=== PATIENT | female | born 1945 | race Caucasian/White ===

== ENCOUNTER → 2016-12-06 | Outpatient (CLI) | payer OTHER ==
[~2016-12-06] MED LIST: ASPI-435 PO; CHOL100010 PO; DABI1CAP PO; LISI20TA3 PO; LIVALO PO; METF1000 PO; METO50TA16 PO; VITACAP26 PO
[2016-12-06 10:42] LABS: ALB/GLOB RATIO 1.1 (0.9-2); ALT/SGPT 20 U/L (12-78); AST/SGOT 13 U/L (15-37); BLOOD UREA NITROGEN 17 mg/dl (7-18); CARBON DIOXIDE 30 mmol/L (21-32); CHLORIDE 109 mmol/L (98-107); GLUCOSE 120 mg/dl (70-99); POTASSIUM 4.4 mmol/L (3.5-5.1); SODIUM 147 mmol/L (136-145); TRIGLYCERIDES 203 mg/dl (0-150); VERY LOW DENSITY LIPOPROT CALC 41 mg/dl
[2016-12-06 10:43] LABS: ALKALINE PHOSPHATASE 50 U/L (45-117); CHOLESTEROL 166 mg/dl (0-200); CHOLESTEROL/HDL RATIO 3.6; HDL CHOLESTEROL 46 mg/dl; LDL CHOLESTEROL CALCULATED 79 mg/dl
== END | disposition home or self-care (01) ==
LOC: C.LAB 09:16
PROVIDERS: ATTEND Family Medicine
DX: E11.9 Type 2 diabetes mellitus without complications (principal)

== ENCOUNTER → 2016-12-20 | Outpatient (CLI) | payer OTHER ==
--- NOTE | 2016-12-20 12:47 | MAMMOGRAPHY REPORT ---
BILATERAL DIGITAL SCREENING MAMMOGRAM WITH CAD: 12/20/2016 CLINICAL HISTORY: Routine screening. Patient has no complaints. TECHNIQUE: Bilateral CC and MLO views were obtained with repeat MLO views performed with more anteri or compression into include all tissue. Current study was also evaluated with a Computer Aided Dete ction (CAD) system. COMPARISON: Comparison is made to exams dated: 03/19/2015 mammogram, 03/11/2013 mammogram, 03/08/2012 m ammogram, 03/04/2011 mammogram, 03/05/2010 ultrasound - [facility], and 02/27/2009. BREAST COMPOSITION: The tissue of both breasts is almost entirely fatty. FINDINGS: There is a stable circumscribed 10 mm mass in the upper outer quadrant of the right breast . 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 There are scattered benign rim calcifications in the left breast. A stable metallic biopsy ma rker in the left breast and a grouping of punctate microcalcifications in the left upper outer quadr ant that appears similar dating back to at least 2009. No new suspicious mass, architectural distor tion or cluster of microcalcifications is seen. IMPRESSION: ACR BI-RADS CATEGORY 1: NEGATIVE There is no mammographic evidence of malignancy. A 1 year screening mammogram is recommended. The p atient will receive written notification of the results. Approximately 10% of breast cancers are not detected with mammography. A negative mammographic repor t should not delay biopsy if a clinically suggestive mass is present. Sendy Roberson M.D. ay/:12/20/2016 12:12:10 Acid Changer: Claudette SERVIN,R, M, [facility] letter sent: Normal 1/2 BI-RADS Code: ACR BI-RADS Category 1: Negative
== END | disposition home or self-care (01) ==
LOC: C.MAMM 11:01
PROVIDERS: ATTEND Family Medicine
DX: Z12.31 Encounter for screening mammogram for malignant neoplasm of breast (principal)

== ENCOUNTER → 2017-12-21 | Outpatient (CLI) | payer OTHER ==
--- NOTE | 2017-12-21 15:08 | MAMMOGRAPHY REPORT ---
BILATERAL DIGITAL SCREENING MAMMOGRAM TOMOSYNTHESIS WITH CAD: 12/21/2017 CLINICAL HISTORY: Routine screening. Patient has no complaints. TECHNIQUE: Breast tomosynthesis in addition to standard 2D mammography was performed. Current study was also evaluated with a Computer Aided Detection (CAD) system. COMPARISON: Comparison is made to exams dated: 12/20/2016 mammogram, 03/19/2015 mammogram, 03/18/2014 m ammogram, 03/11/2013 mammogram, 03/08/2012 mammogram, and 03/05/2010 ultrasound [facility]. BREAST COMPOSITION: The tissue of both breasts is almost entirely fatty. FINDINGS: No suspicious masses, calcifications, or areas of architectural distortion are noted in ei ther breast. There has been no significant interval change compared to prior exams. Bilateral benign appearing calcifications are not significantly changed. Bilateral nodularity is also stable. A bio psy clip is again noted within the left breast. IMPRESSION: ACR BI-RADS CATEGORY 2: BENIGN There is no mammographic evidence of malignancy. A 1 year screening mammogram is recommended. The pa tient will receive written notification of the results. Approximately 10% of breast cancers are not detected with mammography. A negative mammographic report should not delay biopsy if a clinically suggestive mass is present. Leonie White M.D. /:12/21/2017 14:03:51 Ekg Technician: Lori SERVIN(Lona)(Adonis), [facility] letter sent: Normal 1/2 BI-RADS Code: ACR BI-RADS Category 2: Benign
== END | disposition home or self-care (01) ==
LOC: C.MAMM 11:21
PROVIDERS: ATTEND Family Medicine
DX: Z12.31 Encounter for screening mammogram for malignant neoplasm of breast (principal)

== ENCOUNTER 2021-01-16 21:04 | Inpatient (IN) ==
[2021-01-16 21:44] LABS: Basophils # (auto) 0.01 K/uL (0-0.2); Basophils % (auto) 0.1 %; Eosinophils # (auto) 0.13 K/uL (0-0.5); Eosinophils % (auto) 1.9 %; Hematocrit (blood only) 43.2 % (37-47); Hemoglobin 14.2 g/dL (12.0-16.0); Immature Granulocytes # (auto) 0.02 K/uL (0.00-0.02); Immature Granulocytes % (auto) 0.3 %; Lymphocytes # (auto) 1.86 K/uL (1.2-3.4); Lymphocytes % (auto) 27.1 %; Mean Corpuscular Hemoglobin 28.9 pg (25-34); Mean Corpuscular Hgb Conc 32.9 g/dL (32-36); Mean Platelet Volume 10.1 fL (7.4-10.4); Monocytes # (auto) 0.75 K/uL (0.11-0.59); Monocytes % (auto) 10.9 %; Neutrophils # (auto) 4.09 K/uL (1.4-6.5); Neutrophils % (auto) 59.7 %; Platelet Count 176 K/uL (130-400); RDW Coefficient of Variation 14.4 % (11.5-14.5); RDW Standard Deviation 46.3 fL (36.4-46.3); Red Blood Count 4.91 M/uL (4.2-5.4); White Blood Count 6.86 K/uL (4.8-10.8)
[2021-01-16] MEDS ORDERED: OPTIRAY 350 500ml IV ONE (21:49)
[2021-01-16 21:59] LABS: Partial Thromboplastin Ratio 0.8; Partial Thromboplastin Time 22.3 Seconds (21.0-31.0); Prothrombin Time 10.4 Seconds (9.0-12.0)
[2021-01-16 22:01] LABS: Alanine Aminotransferase 23 U/L (12-78); Albumin Level 3.6 gm/dl (3.4-5.0); Aspartate Aminotransferase 13 U/L (15-37); BUN Creatinine Ratio 10.3 (10-20); Blood Urea Nitrogen 11 mg/dl (7-18); Calcium 9.6 mg/dl (8.5-10.1); Carbon Dioxide 29 mmol/L (21-32); Chloride 111 mmol/L (98-107); Creatinine Clr Calc Pharmacy 44.2 ml/min; Est GFR (African American) 55.9; Est GFR (Non-African American) 48.2; Glucose 136 mg/dl (70-99); Magnesium 2.1 mg/dl (1.8-2.4); Sodium 144 mmol/L (136-145)
[2021-01-16 22:05] LABS: Alkaline Phosphatase 54 U/L (45-117); Bilirubin,Total 0.6 mg/dl (0.2-1); Globulin 3.6 gm/dl (2.5-4.0); Total Protein 7.2 gm/dl (6.4-8.2); Troponin I < 0.015 ng/ml (0-0.045)
[2021-01-16] MEDS ORDERED: POTASSIUM CHLORIDE / WTR 10 MEQ/100 ML PLCT IV ONE (22:34)
[2021-01-16 22:40] LABS: Influenza A virus by PCR Negative (Neg); Influenza B virus by PCR Negative (Neg); RSV by PCR Negative (Neg); SARS CoV2 RNA(COVID-19) InHosp NEGATIVE (Negative)
[2021-01-16 23:29] LABS: Appearance Urine Clear (Clear); Bilirubin Urine Negative (Negative); Blood Urine Negative (Negative); Color Urine Yellow; Glucose Urine UA Negative (Negative); Ketones Urine Negative (Negative); Leukocyte Esterase Urine Negative (Negative); Nitrite Urine Negative (Negative); Protein Urine Negative (Negative); Specific Gravity Urine 1.037 (1.000-1.030); Urobilinogen Urine Negative (Negative); pH Urine 7.5 (4.5-7.5)
--- NOTE | 2021-01-17 00:06 | Emergency Department Note ---
Impression & Plan Stroke-like symptoms, Atrial fibrillation, Hypertension, Hypokalemia, Weakness ED Provider Note INFORMANT: Patient, daughter ED PROVIDER(S): Carlos Medina MD CHIEF COMPLAINT: Strokelike symptoms PLAN: Disposition: Admitted Condition: Good Outpatient prescription management: none Referral: None MEDICAL DECISION MAKING: Patient presented because of strokelike symptoms. She was weak and had expressive aphasia. I was notified by triage of the patient. I promptly met her in her room. A stroke alert was initiated. CT imaging including angiography was negative. The patient's BSG was only minimally elevated. Her chemistry panel revealed mild hypokalemia. This was repleted. I did consult with Dr. Barriga of [facility]. Initial thoughts for thrombolytics were held because there was some question if the patient was on anticoagulation. I did have pharmacy investigate and they did not find anything. I did discuss with the family and they were unsure. The patient could not clearly answer. [facility] was able to find her outpatient records and the patient had declined anticoagulation on her last visit in November. At this point she was assessed via telestroke and was significantly improved. Urinalysis was obtained and was unremarkable. Given her marked improvement it was felt that it could be a small vessel problem or even a seizure. Telestroke recommended MRI as well as EEG. Permissive hypertension of approximately 180/100 was also recommended. I did consult with the hospitalist service. Consultation was made with Dr. Chad Solorzano of the [facility] service. Patient was evaluated in the ER for further management. Triage Nursing notes reviewed and agree them. Vital Signs: reviewed and remarkable for no significant abnormalities Differential diagnosis: Infection, dehydration, metabolic abnormality, hypo/hyperglycemia, CVA, TIA, seizure, electrolyte disturbance, anemia, hypoxia, cardiac sources, intracerebral event, toxicologic, neurologic, as well as other pathologies. Diagnostics interpreted by me: ECG: Twelve-lead ECG reveals atrial fibrillation at 89 bpm. There is inferolateral T wave inversions. When compared to September [id number] the inferior changes are the same however the lateral changes are more pronounced. Cardiac Monitoring: Cardiac monitoring was ordered by me. The patient was placed on monitor and it revealed atrial fibrillation at a rate of 88 bpm. No e ctopy noted. Imaging studies: CT angiography of the head neck was performed and was negative for acute process. I refer you to the EMR for further details. Chest x-ray reveals cardiomegaly. HPI: The patient is a 75 year old female who presents to the Emergency Room with complaints of strokelike symptoms. This started around 2014 this evening and is described as difficulty finding her words. The patient also notes the following associated symptoms, shaking of the arms, generalized weakness. The patient has found no relieving factors. Current pain is rated as 0/10. Patient has a history of atrial fibrillation. She is unsure if she is on anticoagulation. Pt denies LOC, headache, fevers, chills, diaphoresis, visual changes, neck pain, chest pain, breathing difficulties, nausea, vomiting, abdominal pain, back pain, melena, hematochezia, urinary symptoms, numbness, lymphadenopathy, rash, or other complaints. ROS: See above HPI for pertinent positives & negatives. A total of 10 systems reviewed and were otherwise negative. PAST MEDICAL HISTORY:See Below , A. fib, hypertension PAST SURGICAL HISTORY:See Below, FAMILY HISTORY:See Below SOCIAL HISTORY:See Below, lives with family HOME MEDICATIONS:See Below ALLERGIES:See Below VITALS:See Below PHYSICAL EXAMINATION: GENERAL: Awake, tired-appearing, in no distress HENT: Normocephalic, atraumatic. Oropharynx unremarkable. EYES: Normal conjunctiva. Sclera non-icteric. PERRLA. EOMI. NECK: Inspection normal. Non-tender. Supple. No nuchal rigidity. FROM. No masses. RESPIRATORY: Clear to auscultation. No wheezes. No rales. Normal respiratory effort. CARDIAC: Normal rate. Normal rhythm. No murmurs. No rubs. Extremities warm and well perfused. Pulses equal. No JVD. GI: Soft, non-distended. No tenderness to palpation. No rebound or guarding. No masses. RECTAL: Deferred. MUSCULOSKELETAL: Atraumatic. Chest examination reveals no tenderness. The back is symmetrical on inspection without obvious abnormality. There is no CVA tenderness to palpation. No joint edema. LOWER EXTREMITIES: Calves are equal size bilaterally and non-tender. No edema. No discoloration. NEURO: Normal sensorium. No focal sensory deficits noted. Generalized muscular weakness in the upper and lower extremities. No drift. Speech clear but there is some difficulty in finding her words. No receptive aphasia. Cranial nerves II through XII intact. SKIN: No rash or jaundice noted. Carlos Medina MD Past Med/Surg History Social History (Updated 01/07/20 @ 11:54 by Luciano Barahona MD) Smoking Status: Never smoker Feels Safe at Home: Yes Allergies Allergies Allergy/AdvReac Type Severity Reaction Status Date / Time aspirin Allergy Unknown RED RASH Verified 01/16/21 21:25 diphenhydramine Allergy RED RASH Verified 01/16/21 21:25 Home Meds Home Medications Medication Instructions Recorded Confirmed latanoprost 1 drp OPHTHALMIC (EYE) UD 01/16/21 01/16/21 lisinopril 20 mg PO DAILY 01/16/21 01/16/21 metformin 1,000 mg PO BID 01/16/21 01/16/21 metoprolol succinate 25 mg PO DAILY 01/16/21 01/16/21 multivitamin 1 tab PO DAILY 01/16/21 01/16/21 Results & Data (ED) Vital Signs Vital Signs - 24 hr 01/16/21 21:07 01/16/21 21:23 01/16/21 21:30 Temperature 36.6 C Temperature Source Temporal Artery Scan Pulse Rate 102 H 93 H 91 H Pulse Rate from SpO2 Sensor 90 Respiratory Rate 18 25 H 24 Respiratory Depth Normal Blood Pressure Blood Pressure Mean Pulse Oximetry 94 92 Oxygen Delivery Method Room Air Sepsis Recent Fever Within 48 Hours No Sepsis New/Unexplained Change in Mental Status No Sepsis Action Taken by Nursing No Action Required 01/16/21 21:46 01/16/21 21:47 01/16/21 21:48 Temperature Temperature Source Pulse Rate 98 H 89 Pulse Rate from SpO2 Sensor 92 H 95 H 91 H Respiratory Rate 31 H 20 Respiratory Depth Blood Pressure 180/107 H Blood Pressure Mean 131 Pulse Oximetry 94 95 95 Oxygen Delivery Method Sepsis Recent Fever Within 48 Hours Sepsis New/Unexplained Change in Mental Status Sepsis Action Taken by Nursing 01/16/21 22:00 01/16/21 22:15 01/16/21 22:30 Temperature Temperature Source Pulse Rate 86 87 87 Pulse Rate from SpO2 Sensor 91 H 89 87 Respiratory Rate 20 25 H 30 H Respiratory Depth Blood Pressure Blood Pressure Mean Pulse Oximetry 94 94 94 Oxygen Delivery Method Sepsis Recent Fever Within 48 Hours Sepsis New/Unexplained Change in Mental Status Sepsis Action Taken by Nursing 01/16/21 22:43 01/16/21 22:45 01/16/21 23:00 Temperature Temperature Source Pulse Rate 93 H 91 H 91 H Pulse Rate from SpO2 Sensor 89 94 H 86 Respiratory Rate 21 21 16 Respiratory Depth Blood Pressure 186/103 H Blood Pressure Mean 130 Pulse Oximetry 95 94 94 Oxygen Delivery Method Sepsis Recent Fever Within 48 Hours Sepsis New/Unexplained Change in Mental Status Sepsis Action Taken by Nursing 01/16/21 23:15 Temperature Temperature Source Pulse Rate 88 Pulse Rate from SpO2 Sensor 84 Respiratory Rate 23 Respiratory Depth Blood Pressure Blood Pressure Mean Pulse Oximetry 94 Oxygen Delivery Method Sepsis Recent Fever Within 48 Hours Sepsis New/Unexplained Change in Mental Status Sepsis Action Taken by Nursing Laboratory Data Result diagrams: 01/16/21 21:26 01/16/21 21:26 Lab Results 01/16/21 01/16/21 01/16/21 Range/Units 21:26 21:26 21:26 WBC 6.86 (4.8-10.8) K/uL RBC 4.91 (4.2-5.4) M/uL Hgb 14.2 (12.0-16.0) g/dL Hct 43.2 (37-47) % MCV 88.0 (80-100) fL MCH 28.9 (25-34) pg MCHC 32.9 (32-36) g/dL RDW Std Deviation 46.3 (36.4-46.3) fL RDW Coeff of [place] 14.4 (11.5-14.5) % Plt Count 176 (130-400) K/uL MPV 10.1 (7.4-10.4) fL Immature Gran % (Auto) 0.3 % Neut % (Auto) 59.7 % Lymph % (Auto) 27.1 % [place] % (Auto) 10.9 % Eos % (Auto) 1.9 % Baso % (Auto) 0.1 % Neut # (Auto) 4.09 (1.4-6.5) K/uL Lymph # (Auto) 1.86 (1.2-3.4) K/uL [place] # (Auto) 0.75 H (0.11-0.59) K/uL Eos # (Auto) 0.13 (0-0.5) K/uL Baso # (Auto) 0.01 (0-0.2) K/uL Immature Gran # (Auto) 0.02 (0.00-0.02) K/uL PT 10.4 (9.0-12.0) Seconds INR 1.0 (0.9-1.1) APTT 22.3 (21.0-31.0) Seconds PTT Ratio 0.8 Sodium 144 (136-145) mmol/L Potassium 3.0 L (3.5-5.1) mmol/L Chloride 111 H (98-107) mmol/L Carbon Dioxide 29 (21-32) mmol/L Anion Gap 5.0 (3-11) BUN 11 (7-18) mg/dl Creatinine 1.11 (0.6-1.2) mg/dl Est Cr Clr Drug Dosing 44.2 ml/min Est GFR ( Amer) 55.9 Est GFR (Non-Af Amer) 48.2 BUN/Creatinine Ratio 10.3 (10-20) Glucose 136 H (70-99) mg/dl POC Glucose (70-99) mg/dl Calcium 9.6 (8.5-10.1) mg/dl Magnesium 2.1 (1.8-2.4) mg/dl Total Bilirubin 0.6 (0.2-1) mg/dl AST 13 L (15-37) U/L ALT 23 (12-78) U/L Alkaline Phosphatase 54 (45-117) U/L Troponin I < 0.015 (0-0.045) ng/ml Total Protein 7.2 (6.4-8.2) gm/dl Albumin 3.6 (3.4-5.0) gm/dl Globulin 3.6 (2.5-4.0) gm/dl Albumin/Globulin Ratio 1.0 (0.9-2) Urine Color Urine Appearance (Clear) Urine pH (4.5-7.5) Ur Specific [place] (1.000-1.030) Urine Protein (Negative) Urine Glucose (UA) (Negative) Urine Ketones (Negative) Urine Blood (Negative) Urine Nitrite (Negative) Urine Bilirubin (Negative) Urine Urobilinogen (Negative) Ur Leukocyte Esterase (Negative) COVID-19 Eval Order SARS-CoV-2 (PCR) (Negative) Influenza Type A (PCR) (Neg) Influenza Type B (PCR) (Neg) RSV (RT-PCR) (Neg) Blood Type Antibody Screen 01/16/21 01/16/21 01/16/21 Range/Units 21:30 21:55 21:55 WBC (4.8-10.8) K/uL RBC (4.2-5.4) M/uL Hgb (12.0-16.0) g/dL Hct (37-47) % MCV (80-100) fL MCH (25-34) pg MCHC (32-36) g/dL RDW Std Deviation (36.4-46.3) fL RDW Coeff of [place] (11.5-14.5) % Plt Count (130-400) K/uL MPV (7.4-10.4) fL Immature Gran % (Auto) % Neut % (Auto) % Lymph % (Auto) % [place] % (Auto) % Eos % (Auto) % Baso % (Auto) % Neut # (Auto) (1.4-6.5) K/uL Lymph # (Auto) (1.2-3.4) K/uL [place] # (Auto) (0.11-0.59) K/uL Eos # (Auto) (0-0.5) K/uL Baso # (Auto) (0-0.2) K/uL Immature Gran # (Auto) (0.00-0.02) K/uL PT (9.0-12.0) Seconds INR (0.9-1.1) APTT (21.0-31.0) Seconds PTT Ratio Sodium (136-145) mmol/L Potassium (3.5-5.1) mmol/L Chloride (98-107) mmol/L Carbon Dioxide (21-32) mmol/L Anion Gap (3-11) BUN (7-18) mg/dl Creatinine (0.6-1.2) mg/dl Est Cr Clr Drug Dosing ml/min Est GFR ( Amer) Est GFR (Non-Af Amer) BUN/Creatinine Ratio (10-20) Glucose (70-99) mg/dl POC Glucose 151 H (70-99) mg/dl Calcium (8.5-10.1) mg/dl Magnesium (1.8-2.4) mg/dl Total Bilirubin (0.2-1) mg/dl AST (15-37) U/L ALT (12-78) U/L Alkaline Phosphatase (45-117) U/L Troponin I (0-0.045) ng/ml Total Protein (6.4-8.2) gm/dl Albumin (3.4-5.0) gm/dl Globulin (2.5-4.0) gm/dl Albumin/Globulin Ratio (0.9-2) Urine Color Urine Appearance (Clear) Urine pH (4.5-7.5) Ur Specific [place] (1.000-1.030) Urine Protein (Negative) Urine Glucose (UA) (Negative) Urine Ketones (Negative) Urine Blood (Negative) Urine Nitrite (Negative) Urine Bilirubin (Negative) Urine Urobilinogen (Negative) Ur Leukocyte Esterase (Negative) COVID-19 Eval Order CovFluRsv at [facility] SARS-CoV-2 (PCR) NEGATIVE (Negative) Influenza Type A (PCR) Negative (Neg) Influenza Type B (PCR) Negative (Neg) RSV (RT-PCR) Negative (Neg) Blood Type Antibody Screen 01/16/21 01/16/21 Range/Units 22:09 22:30 WBC (4.8-10.8) K/uL RBC (4.2-5.4) M/uL Hgb (12.0-16.0) g/dL Hct (37-47) % MCV (80-100) fL MCH (25-34) pg MCHC (32-36) g/dL RDW Std Deviation (36.4-46.3) fL RDW Coeff of [place] (11.5-14.5) % Plt Count (130-400) K/uL MPV (7.4-10.4) fL Immature Gran % (Auto) % Neut % (Auto) % Lymph % (Auto) % [place] % (Auto) % Eos % (Auto) % Baso % (Auto) % Neut # (Auto) (1.4-6.5) K/uL Lymph # (Auto) (1.2-3.4) K/uL [place] # (Auto) (0.11-0.59) K/uL Eos # (Auto) (0-0.5) K/uL Baso # (Auto) (0-0.2) K/uL Immature Gran # (Auto) (0.00-0.02) K/uL PT (9.0-12.0) Seconds INR (0.9-1.1) APTT (21.0-31.0) Seconds PTT Ratio Sodium (136-145) mmol/L Potassium (3.5-5.1) mmol/L Chloride (98-107) mmol/L Carbon Dioxide (21-32) mmol/L Anion Gap (3-11) BUN (7-18) mg/dl Creatinine (0.6-1.2) mg/dl Est Cr Clr Drug Dosing ml/min Est GFR ( Amer) Est GFR (Non-Af Amer) BUN/Creatinine Ratio (10-20) Glucose (70-99) mg/dl POC Glucose (70-99) mg/dl Calcium (8.5-10.1) mg/dl Magnesium (1.8-2.4) mg/dl Total Bilirubin (0.2-1) mg/dl AST (15-37) U/L ALT (12-78) U/L Alkaline Phosphatase (45-117) U/L Troponin I (0-0.045) ng/ml Total Protein (6.4-8.2) gm/dl Albumin (3.4-5.0) gm/dl Globulin (2.5-4.0) gm/dl Albumin/Globulin Ratio (0.9-2) Urine Color Yellow Urine Appearance Clear (Clear) Urine pH 7.5 (4.5-7.5) Ur Specific [place] 1.037 H (1.000-1.030) Urine Protein Negative (Negative) Urine Glucose (UA) Negative (Negative) Urine Ketones Negative (Negative) Urine Blood Negative (Negative) Urine Nitrite Negative (Negative) Urine Bilirubin Negative (Negative) Urine Urobilinogen Negative (Negative) Ur Leukocyte Esterase Negative (Negative) COVID-19 Eval Order SARS-CoV-2 (PCR) (Negative) Influenza Type A (PCR) (Neg) Influenza Type B (PCR) (Neg) RSV (RT-PCR) (Neg) Blood Type Cancelled Antibody Screen Cancelled Administered Medications Discontinued Medications Potassium Chloride (K Saurav / Wtr) 10 meq in 100 mls @ 100 mls/hr IV ONE ONE Stop: 01/16/21 23:33 Last Admin: 01/16/21 23:43 Dose: 100 mls/hr Documented by: [id number] Ioversol (Optiray 350 500ml) 113 ml IV ONCE ONE Stop: 01/16/21 21:50 Last Admin: 01/16/21 21:49 Dose: 113 ml Documented by: [id number] Discharge Plan Visit Data Chief Complaint: Stroke/CVA Symptoms Stated Complaint: SHAKING, SLURRING WORDS ED Provider: Carlos Medina Discharge Problem: Stroke-like symptoms, Atrial fibrillation, Hypertension, Hypokalemia, Weakness Forms Stand Alone Forms: My [facility] [place] Prescriptions Prescriptions: No Action lisinopril 20 mg tablet 20 mg PO DAILY RF: 0 metoprolol succinate 25 mg tablet extended release 24 hr 25 mg PO DAILY RF: 0 multivitamin Tablet 1 tab PO DAILY RF: 0 latanoprost 0.005 % drops 1 drp ophthalmic (eye) UD RF: 0 metformin 1,000 mg Tablet 1,000 mg PO BID RF: 0
--- NOTE | 2021-01-17 01:11 | History & Physical Report ---
Date of Service January 17, 2021 Assessment & Plan Admission and Anticipated Discharge Date Admission Date: 75 yo F w/ PMHx. of A. fib, bleeding hemorrhoids and DM presents with weakness, shaking, slurred speech concerning for stroke Stroke like symptoms including, expressive aphasia, weakness, tremor and vision changes; that have since nearly resolved CT-H ([facility]) with no hem. or large tertitorial infarction but does have global parenchymal volume loss with chronic microvasc. changes CTA-H ([facility]) with no large vessel occlusion or aneurysm with mild/mod M1 distribution stenosis bilaterally in the MCA's - stroke protocol enacted, telestoke and ED provider decided not to use tPA as the patient had near resolution of symptoms and there was a question of if this could represent seizure activity - telestroke rec - EEG, MRI - ECHO ordered to eval. for vegetations given Hx. a. fib. and symptoms consistent with multiple vascular territories - allow for permissive HTN with no intervention unless patient is above SBP 220 or DBP 120 Atrial fibrillation, not on anticoagulation [id number] of 5 if this is not a stroke and 7 if this is a stoke indicating moderate to high risk of stroke/TIA/embolism - would likely benefit from anticoagulation going forward HTN - continue Lisinopril DM A1c 6.1 - holding Metformin - continue to check blood sugars at this time HLD, ASCVD risk based on current information 12% 10 year not currently on statin - consider starting statin, with high intensity statin if patient does has a stroke on MRI Code: full Diet: NPO DVT: SCD's History of Present Illness Chief Complaint: tremor, dysarthria, vision changes, weakness Primary Care Provider: Enriqueta Harry MD Viridiana Thomson is here for acute onset of tremor, expressive aphasia, vision changes and weakness. At 8:30PM she was eating dinner and then had to go to the bathroom. She was not able to make it to the bathroom in time and went to clean herself up. When she was coming back from the bathroom she was having trouble walking, shaking, and was having slurred speech and word finding difficulty. She did not fall. While currently talking with her she is stopping to think about what she is going to say next and will look at her family member to help tell some of the events. She also brought up that she could not see well during the event and that it was like it was getting dark, when I asked if it felt like the curtains were coming down she said it did seem like that. She has improvement in her symptoms and family said she was currently 85-90% at her baseline. When I saw that she had uvula deviation to the right she brought up that sometimes her uvula goes to one side or another and it will change sides when she coughs, I had her cough and it continued to deviate to the right. She was normal to family prior to event and somewhat sleepy after the event. She sees Dr. Gallagher with cardiology and Dr. Harry as a PCP. She has a history of atrial fibrillation that had developed 5-6 years ago, she was previously on what sounded like warfarin and then stopped as she did not like needles. They also brought up there was concern in the past of bleeding hemorrhoids. She does take metoprolol for A. fib.. She explained that she can feel when she is in atrial fibrillation and notices it in her eyes as a throbbing. smoking hx. 14 pack years quit 30 years ago COVID vaccine X2 last on 12/11 ([facility]) Allergies Allergy/AdvReac Type Severity Reaction Status Date / Time aspirin Allergy Unknown RED RASH Verified 01/16/21 21:25 diphenhydramine Allergy RED RASH Verified 01/16/21 21:25 Home Medications Medication Instructions Recorded Confirmed Type latanoprost 1 drp OPHTHALMIC (EYE) UD 01/16/21 01/16/21 History lisinopril 20 mg PO DAILY 01/16/21 01/16/21 History metformin 1,000 mg PO BID 01/16/21 01/16/21 History metoprolol succinate 25 mg PO DAILY 01/16/21 01/16/21 History multivitamin 1 tab PO DAILY 01/16/21 01/16/21 History Past Med/Surg History Social History Smoking Status: Former smoker Hx Alcohol Use: No Hx Substance Use: No Preferred Language: Vietnamese Communication Ability: Effective 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 Beliefs That Will Affect Care: None Current Living Situation: Alone Other Information That Helps Us Care for You: No Feels Safe at Home: Yes Safety Concerns: Feels Safe At This Time Assistive Devices: Glasses and Walker Review of Systems Review of Systems: Constitutional: denies fever, chills, vomiting admits general weakness, change in weight Head: denies trauma, LOC, headache admits confusion, lightheadedness, vision changes Neuro: admits slurring of speech ENT: denies rhinorrhea, stuffiness, sneezing Cardiac: denies chest pain, admits palpitations Pulm.: denies cough admits chronic shortness of breath GI: denies diarrhea, admits constipation (chronic on fiber and miralax) : admits polyuria, urgency (chronic does not seem like UTI to patient) Physical Exam Constitutional: well developed and well nourished Eyes: PERRL, conjunctivae normal, anicteric sclerae ENMT: Throat: + uvula not midline (- uvula deviated to the right) Respiratory: normal respiratory effort, lungs clear to auscultation Cardiovascular: irregularly irregular, slightly tachycardic no murmur appreciated no edema Gastrointestinal (Abdomen): normal bowel sounds, soft, nontender, no hepatosplenomegaly Skin: no rashes, warm and dry Neurologic: + confused; no focal motor deficits Speech / Cognition: + expressive aphasia Cranial Nerves: PERRL, normal accommodation, EOM intact bilaterally, normal facial strength, tongue midline, able to elevate shoulders bilaterally, no nystagmus and symmetric palate elevation Psychiatric: Apperance: appropriately dressed Eye Contact: good eye contact Affect: euthymic affect Results & Data Results & Data ([facility]) Vital Signs (Past 12 Hours) Vital Signs Temp Pulse Resp BP Pulse Ox 01/16/21 23:15 88 23 94 01/16/21 23:00 91 H 16 94 01/16/21 22:45 91 H 21 94 01/16/21 22:43 93 H 21 186/103 H 95 01/16/21 22:30 87 30 H 94 01/16/21 22:15 87 25 H 94 01/16/21 22:00 86 20 94 01/16/21 21:48 89 20 95 01/16/21 21:47 98 H 31 H 180/107 H 95 01/16/21 21:46 94 01/16/21 21:30 91 H 24 01/16/21 21:23 93 H 25 H 92 01/16/21 21:07 36.6 C 102 H 18 94 CBC Results Results Complete Blood Count Results: RBC 4.45 M/uL (4.2-5.4) 01/17/21 WBC 6.62 K/uL (4.8-10.8) 01/17/21 Hgb 12.8 g/dL (12.0-16.0) 01/17/21 Hct 39.3 % (37-47) 01/17/21 Plt Count 155 K/uL (130-400) 01/17/21 Chemistry (BMP) Results BMP Results: Sodium 145 mmol/L (136-145) 01/17/21 Potassium 3.5 mmol/L (3.5-5.1) 01/17/21 Chloride 112 mmol/L (98-107) H 01/17/21 BUN 11 mg/dl (7-18) 01/17/21 Creatinine 0.96 mg/dl (0.6-1.2) 01/17/21 Glucose 102 mg/dl (70-99) H 01/17/21 Code Status & VTE Plan VTE Prophylaxis Plan VTE Prophylaxis will be ordered: Yes Supervising Physician Co-Signing Physician Notes Attending addendum: I have physically seen this patient, have supervised the medical residents activities, and agree with the H&P unless as otherwise noted. Assessment and Plan: Strokelike symptoms/expressive aphasia/weakness/tremor/vision changes- CT head negative CTA head with mild/moderate M1 distribution stenoses bilaterally Patient was a stroke alert in the ED Stroke without TPA order set Order echocardiogram, EEG and MRI of brain Atrial fibrillation/hypertension- Hold lisinopril Continue metoprolol succinate Consult cardiology to address issues regarding possible need for anticoagulation Diabetes mellitus- Hold Metformin Place on Accu-Cheks before meals and at bedtime with NovoLog coverage per scale Remaining orders and notations as noted Resident Activity Tracking Resident Involvement: Resident Care Provided Care Provided: Adult Hospital Medicine
[2021-01-17] MEDS ORDERED: PHARMACIST DISCHARGE MED REC CONSULT PRN (02:20)
[2021-01-17] MEDS ORDERED: DEXTROSE 50% 50 ML SYRINGE IV PRN (04:10)
[2021-01-17] MEDS ORDERED: GLUCOSE 10 TABS/TUBE PO PRN (04:10)
[2021-01-17] MEDS ORDERED: CARBOHYDRATES FOR HYPOGLYCEMIA PO PRN (04:10)
[2021-01-17] MEDS ORDERED: GLUCAGON FOR INJ 1 MG VIAL SQ PRN (04:10)
[2021-01-17] MEDS ORDERED: GLUCOSE 40% GEL 15 GM TUBE PO PRN (04:10)
[2021-01-17 06:26] LABS: Basophils # (auto) 0.02 K/uL (0-0.2); Basophils % (auto) 0.3 %; Eosinophils # (auto) 0.17 K/uL (0-0.5); Eosinophils % (auto) 2.6 %; Hematocrit (blood only) 39.3 % (37-47); Hemoglobin 12.8 g/dL (12.0-16.0); Immature Granulocytes # (auto) 0.01 K/uL (0.00-0.02); Immature Granulocytes % (auto) 0.2 %; Lymphocytes # (auto) 1.71 K/uL (1.2-3.4); Lymphocytes % (auto) 25.8 %; Mean Corpuscular Hemoglobin 28.8 pg (25-34); Mean Corpuscular Hgb Conc 32.6 g/dL (32-36); Mean Corpuscular Volume 88.3 fL (80-100); Monocytes # (auto) 0.82 K/uL (0.11-0.59); Monocytes % (auto) 12.4 %; Neutrophils # (auto) 3.89 K/uL (1.4-6.5); Neutrophils % (auto) 58.7 %; Platelet Count 155 K/uL (130-400); RDW Coefficient of Variation 14.6 % (11.5-14.5); RDW Standard Deviation 47.2 fL (36.4-46.3); Red Blood Count 4.45 M/uL (4.2-5.4); White Blood Count 6.62 K/uL (4.8-10.8)
[2021-01-17 06:45] LABS: BUN Creatinine Ratio 11.7 (10-20); Calcium 9.1 mg/dl (8.5-10.1); Creatinine Clr Calc Pharmacy 53.7 ml/min; Est GFR (African American) 66.6; Est GFR (Non-African American) 57.4; Potassium 3.5 mmol/L (3.5-5.1)
--- NOTE | 2021-01-17 07:31 | CT Scan Report ---
CT head/brain wo con CLINICAL HISTORY: Stroke Like Symptoms COMPARISON STUDY: MRI the brain dated 11/20/2020 TECHNIQUE: Axial CT of the brain is performed from the vertex to the skull base. IV contrast was not administered for this examination. A dose lowering technique was utilized adhering to the principles of ALARA. CT DOSE: FINDINGS: No intra or extra-axial mass lesions are visualized. There is no CT evidence of acute cortical infarc tion. There is no evidence of midline shift. There is no acute hemorrhage. No calvarial fractures ar e visualized. There are patchy white matter hypodensities likely on a small vessel basis. There is no evidence of pathologic ventricular dilatation. There is no evidence of acute sinusitis IMPRESSION: No acute intracranial findings ACT 112: Negative or not required by law. Electronically signed by: Andrzej Ferreira M.D. 01/17/2021 7:30 AM
--- NOTE | 2021-01-17 07:50 | Neurology Consultation ---
Date of Consultation January 17, 2021 Assessment & Plan (1) Stroke-like symptoms: Viridiana Thomson is a 75 yo woman w/ PMH of HTN, HLD, DM, Afib on no AP/AC, and prior tobacco abuse who p/t [facility] with acute onset of word finding difficulty, arm shaking and generalized weakness. Symptom localization: word finding difficulty could localize to the left MCA territory vs thalamic aphasia Stroke mechanism: cardioembolic vs lacunar/lipohyalinosis Stroke WorkUp: - CT head: shows no hemorrhage or hypodensity, mild SVID present - CTA head/neck: shows no LVO, high-grade stenosis or aneurysm noted - MRI brain: pending - TTE: pending - Telemetry: Afib - A1c: pending - FLP: 89 - Troponin: negative Stroke Management: - Acute treatment: ASA - Continuous cardiac monitoring - Vitals, Neurochecks, NIHSS per unit routine - BP parameters: SBP CAP 220, hold home anti-hypertensives for permissive HTN, IV Labetalol/Hydralazine PRN (of to restart home BP meds AM of 01/18) - Obtain MRI brain to evaluate stroke burden - Complete ischemic stroke workup with TTE without bubble, A1c - Consult speech, PT, OT for supportive management - Will camp counselor concerning stroke education, smoking cessation, healthy diet, physical activity, weight loss - Follow up with PCP for assistance with outpatient goals (BP <130/80, LDL <70, A1c <7) - Follow up in neurology clinic in 6-8 weeks with KERMIT Spence Secondary Stroke Prevention: - Antiplatelet: Not indicated at this time - Anticoagulation: apixaban for non-valvular Afib, warfarin for valvular Afib (TTE pending) - Statin: Atorvastatin 40mg daily HTN: - BP parameters, as above - Restart home medications this evening or tomorrow AM with goal of lowering BP to normotension over next 3-4 days FEN/GI: - Diet: Cardiac HH diet and PO meds given absence of bulbar signs or symptoms - Monitor lytes and replete PRN Glucose Control: - Sliding scale insulin and accuchecks per primary team to avoid hyperglycemia Thank you for this interesting consult. Plan of care was discussed with primary team. Please call with any questions. (2) Diabetes mellitus: (3) Hyperlipidemia: (4) Hypertension: (5) Atrial fibrillation: History of Present Illness Attending Physician: Anson Denis History of Present Illness Viridiana Thomson is a 75 yo woman w/ PMH of HTN, HLD, DM, Afib on no AP/AC, and prior tobacco abuse who p/t [facility] with acute onset of word finding difficulty, arm shaking and generalized weakness. 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 In the ED, she was afebrile, BP 180/107, heart rate 102, respiratory rate 18, satting 94% on room air. Labs notable for WBC 6.6, hemoglobin 14.2, platelets 176, sodium 144, potassium low at 3, creatinine 1.11, glucose 136, INR 1, calcium/magnesium within normal, LFTs within normal, troponin negative, UA no infection, Covid negative. Imaging independently reviewed. CT head shows no hemorrhage or hypodensity, mild SVID present. CTA head and neck shows no LVO, high-grade stenosis or aneurysm noted. MRI brain pending. On examination, she reports that she went to go the bathroom and felt shaky all over, generalized weakness and anxiety as she was walking to the bathroom. Denied any focal neurological deficits such as N/T or unilateral weakness. Does note that she felt like her speech slowed down and that her arms were mildly tremoring, but denies LoC, tongue biting, loss of bowel/bladder. Does not take AP/AC at home given c/f side effects. Reports previously trying warfarin; refuses to be on a medication that requires testing. Allergies Allergy/AdvReac Type Severity Reaction Status Date / Time aspirin Allergy Unknown RED RASH Verified 01/16/21 21:25 diphenhydramine Allergy RED RASH Verified 01/16/21 21:25 Home Medications Medication Instructions Recorded Confirmed Type latanoprost 1 drp OPHTHALMIC (EYE) UD 01/16/21 01/16/21 History lisinopril 20 mg PO DAILY 01/16/21 01/16/21 History metformin 1,000 mg PO BID 01/16/21 01/16/21 History metoprolol succinate 25 mg PO DAILY 01/16/21 01/16/21 History multivitamin 1 tab PO DAILY 01/16/21 01/16/21 History Patient History Social History Smoking Status: Former smoker Hx Alcohol Use: No Hx Substance Use: No Preferred Language: Serbian Communication Ability: Effective Parent Trainer Required: No Beliefs That Will Affect Care: None Current Living Situation: Alone Other Information That Helps Us Care for You: No Feels Safe at Home: Yes Safety Concerns: Feels Safe At This Time Assistive Devices: Glasses and Walker Review of Systems Review of Systems: 14 point review of systems completed and negative except as in HPI. Exam (Neuro) Physical Exam: General Exam: GEN: NAD, lying down in examination bed. HEENT: No conjunctival injection, no rhinorrhea. CV: RRR on monitor, no significant edema. PULM: Nonlabored respirations on room air. Neuro Exam: MS: Awake and Alert. Oriented to person, place, and year but not month. Speech fluent and appropriate without dysarthria or paraphasic errors. Language intact including naming, comprehension, repetition. Cognition and memory mildly impaired. Attention intact. No neglect. CN: Visual onofre full, + blink to threat bilaterally. No extinction to double simultaneous stimuli. Unable to visualize fundi on fundoscopic exam. PERRLA OU. EOMI without nystagmus. Facial sensation intact to LT. Facial muscles full and symmetric. Hearing intact to finger rub bilaterally. Shoulder shrug normal. Tongue midline. MOTOR: Normal bulk and tone. No pronator drift. BUE strength 5/5 at deltoids, biceps, triceps, wrist flexors and extensors bilaterally. BLE strength 5/5 at iliopsoas, hamstrings, quadriceps, tibialis anterior, and gastrocnemius bilaterally. REFLEXES: 1+ at biceps, triceps, brachioradialis, trace patella, and absent Achilles bilaterally. Flexor plantar responses bilaterally. SENSORY: Intact to LT/vibration throughout, no extinction to double simultaneous stimuli. COORDINATION: No dysmetria or ataxia on [id number] bilaterally. Normal Keysha bilaterally. GAIT: Deferred due to physical status. NIH STROKE SCALE 1A. Level of Consciousness (0-3) = 0 1B. LOC Questions (0-2) = 0 1C. LOC Commands (0-2) = 0 2. Best Horizontal Gaze (0-2) = 0 3. Visual Onofre (0-3) = 0 4. Facial Palsy (0-3) = 0 5. Motor Arm Right (0-4) = 0 Left (0-4) = 0 6. Motor Leg Right (0-4) = 0 Left (0-4) = 0 7. Limb Ataxia (0-2) = 0 8. Sensory (0-2) = 0 9. Best Language (0-3) = 0 10. Dysarthria (0-2) = 0 11. Extinction and Inattention (0-2) = 0 NIHSS TOTAL = 0 Results & Data ([facility]) Vital Signs (Past 12 Hours) Vital Signs Temp Pulse Pulse Resp BP BP Pulse Ox 01/17/21 07:30 36.5 C 87 18 145/90 H 92 01/17/21 02:15 94 H 01/17/21 01:43 36.6 C 87 189/109 H 95 01/17/21 01:15 91 H 15 181/114 H 93 01/17/21 01:00 91 H 22 176/122 H 94 01/17/21 00:54 88 22 191/116 H 93 01/17/21 00:53 94 H 20 202/124 H 94 01/17/21 00:51 103 H 19 97 01/17/21 00:46 86 16 201/133 H 96 01/17/21 00:45 82 14 95 01/17/21 00:30 107 H 14 94 01/17/21 00:15 89 25 H 95 01/17/21 00:00 94 H 18 95 01/16/21 23:45 90 22 96 01/16/21 23:30 88 21 94 01/16/21 23:15 88 23 94 01/16/21 23:00 91 H 16 94 01/16/21 22:45 91 H 21 94 01/16/21 22:43 93 H 21 186/103 H 95 01/16/21 22:30 87 30 H 94 01/16/21 22:15 87 25 H 94 01/16/21 22:00 86 20 94 01/16/21 21:48 89 20 95 01/16/21 21:47 98 H 31 H 180/107 H 95 01/16/21 21:46 94 01/16/21 21:30 91 H 24 01/16/21 21:23 93 H 25 H 92 01/16/21 21:07 36.6 C 102 H 18 94 PG Care Time/CCT Total # of Minutes Spent Total Time Spent with Patient: Total time spent is greater than 50% in coordination of care (as documented) at patient's floor/unit and/or counseling patient: Coding Level of Care Code 00061 Initial Inpt Care Lvl 3 Diagnoses Stroke-like symptoms R29.90 Diabetes mellitus E11.9 Hyperlipidemia E78.5 Hypertension I10 Atrial fibrillation I48.91
--- NOTE | 2021-01-17 08:03 | CT Scan Report ---
CT angio neck with con CLINICAL HISTORY: Stroke Like Symptoms COMPARISON STUDY: No previous studies for comparison. TECHNIQUE: CT angiography was performed from the aortic arch to the skull base. MIP imaging was perfo rmed. The patient was scanned in a dynamic helical fashion during intravenous administration of 113 c c of Optiray. A dose lowering technique was utilized adhering to the principles of ALARA. CT DOSE: Technique: CT angiogram of the carotid and vertebral arteries was obtained using intravenous contrast and 3-D reconstruction. NASCET criteria was utilized. Findings: The right carotid revealed no evidence of aneurysm and no evidence of dissection. There is no evidenc e of hemodynamic significant stenosis. The left carotid revealed no evidence of hemodynamic significant stenosis. There is no evidence of an eurysm. There is no evidence of dissection. There is a common origin of the brachiocephalic left common carotid artery. There is no evidence of hemodynamically significant vertebral stenosis. There is no evidence of verte bral dissection. IMPRESSION: No evidence of hemodynamically significant carotid or vertebral artery stenosis. No evidence of disse ction. ACT 112: Negative or not required by law. Electronically signed by: Andrzej Ferreira M.D. 01/17/2021 8:01 AM
--- NOTE | 2021-01-17 08:08 | CT Scan Report ---
CT angio head w con CLINICAL HISTORY: Stroke Like Symptoms TECHNIQUE: CT angiography of the head was performed in a dynamic helical fashion during intravenous a dministration of 113 cc of Optiray. MIP imaging was performed. A dose lowering technique was utilized adhering to the principles of ALARA. CT DOSE: 1264.73 mGy.cm COMPARISON STUDY: MRI the brain dated 11/20/2020 FINDINGS: There are no lesion suspicious for aneurysm. There are no major intracranial branch occlusi ons. The dural venous sinuses appear patent. There is mild right-sided and [id number] left-side d narrowing of the distal M1 segments of the middle cerebral arteries. IMPRESSION: 1. Mild right-sided and mild to moderate left-sided narrowing of the distal M1 segments of the middle cerebral arteries. 2. No evidence of major intracranial branch occlusion ACT 112: Negative or not required by law. Electronically signed by: Andrzej Ferreira M.D. 01/17/2021 8:07 AM
--- NOTE | 2021-01-17 08:27 | XRay Report ---
XR chest 1V portable CLINICAL HISTORY: Stroke Like Symptoms COMPARISON STUDY: 09/03/2013 FINDINGS: The heart is enlarged. There is no overt failure. There is no focal pulmonary consolidation . There are no pleural effusions. There is mild prominence of central pulmonary arteries. This remain similar to the prior study[ IMPRESSION: Cardiomegaly. No acute findings. ACT 112: Negative or not required by law. Electronically signed by: Andrzej Ferreira M.D. 01/17/2021 8:26 AM
[2021-01-17] MEDS: POTASSIUM CHLORIDE 20 MEQ/15 ML UDC PO SCH (09:31)
[2021-01-17] MEDS: lisinopril 20 MG TAB PO SCH (09:31)
[2021-01-17] MEDS: METOPROLOL SUCC 25MG EXT REL TAB PO SCH (09:31)
--- NOTE | 2021-01-17 13:05 | Electrocardiogram Report ---
Test Reason : Blood Pressure : / mmHG Vent. Rate : 089 BPM Atrial Rate : 208 BPM P-R Int : 000 ms QRS Dur : 092 ms QT Int : 380 ms P-R-T Axes : 000 027 -66 degrees QTc Int : 462 ms Atrial fibrillation Abnormal ECG When compared with ECG of 03-SEP-2013 10:15, No significant change was found Confirmed by You Ortega ([id number]) on 01/17/2021 1:04:55 PM Referred By: REFERRED SELF Confirmed By:Esau Ortega
--- NOTE | 2021-01-17 14:54 | XCELERA ---
[id number] \\[id number]}___[id number]
--- NOTE | 2021-01-18 01:54 | Billing Data ---
Date of Service January 18, 2021 Coding Level of Care Code 69317 Initial Inpt Care Lvl 3
[2021-01-18 06:24] LABS: Estimated Average Glucose 131 mg/dl; Hemoglobin A1C 6.2 % (4.5-5.6)
[2021-01-18 07:06] LABS: Basophils # (auto) 0.01 K/uL (0-0.2); Basophils % (auto) 0.2 %; Eosinophils # (auto) 0.12 K/uL (0-0.5); Eosinophils % (auto) 2.1 %; Hematocrit (blood only) 41.1 % (37-47); Hemoglobin 13.5 g/dL (12.0-16.0); Lymphocytes # (auto) 1.55 K/uL (1.2-3.4); Lymphocytes % (auto) 27.3 %; Mean Corpuscular Hemoglobin 29.2 pg (25-34); Mean Corpuscular Hgb Conc 32.8 g/dL (32-36); Mean Platelet Volume 10.1 fL (7.4-10.4); Monocytes # (auto) 0.59 K/uL (0.11-0.59); Monocytes % (auto) 10.4 %; Neutrophils # (auto) 3.41 K/uL (1.4-6.5); Platelet Count 160 K/uL (130-400); RDW Coefficient of Variation 14.7 % (11.5-14.5); Red Blood Count 4.62 M/uL (4.2-5.4); White Blood Count 5.68 K/uL (4.8-10.8)
--- NOTE | 2021-01-18 07:15 | Magnetic Resonance Report ---
MRI OF THE BRAIN WITHOUT IV CONTRAST CLINICAL HISTORY: Dizziness. Stroke like symptoms. COMPARISON STUDY: CT of the brain dated 01/16/2021. TECHNIQUE: MRI of the brain was performed utilizing various T1 and T2-weighted sequences in the axial , sagittal, and coronal planes. IV contrast was not administered for this examination. FINDINGS: Brain parenchyma: There is age-related involutional change noting moderate subcortical and periventri cular microangiopathic disease. There is no hemorrhage or mass effect. There is no restricted diffusi on to suggest acute ischemia. Mccann-white matter differentiation is preserved. No extra-axial fluid co llection is seen. The cerebellar tonsils are normal in configuration. Ventricles, sulci, and cisterns: Prominent secondary to involutional change. Pituitary and sella: Unremarkable. Intracranial vasculature: Normal flow voids are maintained at the skull base. Orbits: The bony orbits are grossly intact. Orbital contents are normal in appearance noting bilatera l ocular lens implants. Sinuses and mastoids: Clear. Calvarium: Unremarkable. Cervical cord: Partially visualized cervical spinal cord is normal in morphology and signal intensity . IMPRESSION: No acute intracranial abnormality. ACT 112: Negative or not required by law. Electronically signed by: Trung Abdalla M.D. 01/18/2021 7:13 AM
[2021-01-18 07:37] LABS: BUN Creatinine Ratio 14.1 (10-20); Calcium 8.5 mg/dl (8.5-10.1); Creatinine Clr Calc Pharmacy 59.7 ml/min; Est GFR (African American) 76.1; Est GFR (Non-African American) 65.6; Potassium 3.5 mmol/L (3.5-5.1)
--- NOTE | 2021-01-18 09:41 | XRay Report ---
XR KUB/Abdomen 1 view CLINICAL HISTORY: incontinence; assess for fecal impaction COMPARISON STUDY: None FINDINGS: There is no pathologic bowel dilatation. There is scattered stool within the colon. There a re no findings to indicate fecal impaction. There is a punctate calcification projected over the righ t kidney suspicious for a calculus. IMPRESSION: 1. No evidence of pathologic bowel dilatation 2. No evidence of fecal impaction 3. Suspected punctate left renal calculus ACT 112: Negative or not required by law. Electronically signed by: Andrzej Ferreira M.D. 01/18/2021 9:39 AM
[2021-01-18] MEDS: POTASSIUM CHLORIDE 20 MEQ/15 ML UDC PO SCH (09:58)
[2021-01-18] MEDS: lisinopril 20 MG TAB PO SCH (09:58)
[2021-01-18] MEDS: METOPROLOL SUCC 25MG EXT REL TAB PO SCH (09:58)
--- NOTE | 2021-01-18 10:15 | Neurology Progress Note ---
Date of Service January 18, 2021 Assessment & Plan (1) Stroke-like symptoms: Suspected TIA localizing to the left cerebral hemisphere, left MCA territory versus left thalamus, presenting with aphasia and some nonlocalizing symptoms including shaking of the arms and generalized weakness. Stroke risk factors for this patient include atrial fibrillation, not on anticoagulation, diabetes mellitus, and hypertension. I agree with the recommendation for anticoagulation in this patient. Patient expresses some reluctance to proceed with anticoagulation. She has been following with Dr. Gallagher, cardiology, and it looks like she had been on Pradaxa previously. I counseled the patient regarding the benefit of anticoagulation in light of her history of atrial fibrillation and stroke risk, especially in the context of her current presentation. She may be willing to proceed with this recommendation but will likely need some additional counseling by the medical team. Would consider obtaining an up-to-date cardiology consultation as well. An EEG has been ordered for further evaluation of the associated shaking. Clinical suspicion for seizure disorder is low at this time. No further immediate recommendations. Admission and Anticipated Discharge Date Admission Date: January 17, 2021 Subjective Follow-up for strokelike symptoms The patient is a 75-year old female who presented to the emergency department late in the evening on January 16 for further evaluation and management of acute onset word finding difficulty, shaking of the arms, and generalized weakness. The patient does have a history of atrial fibrillation but has apparently refused anticoagulation. Initial imaging evaluation including CT of the head and CT angiography of the head and neck were generally unrevealing although angiography of the head did reveal mild right-sided and mild to moderate left- sided narrowing of the distal M1 segments of the MCAs. Dr. Recio evaluated the patient in neurological consultation yesterday who suspected a possible stroke localizing to the left middle cerebral artery territory versus thalamic aphasia. A follow-up brain MRI has been completed and is negative for acute or subacute stroke. There is age-related atrophy and a moderate degree of chronic small vessel ischemic disease. These findings were observed by the interpreting radiologist. I reviewed the images as well and agree. An echocardiogram reveals moderate to severely reduced left ventricular systolic function. The left atrium is severely dilated. An electrocardiogram has revealed atrial fibrillation. The patient denies experiencing any further strokelike symptoms during her hospitalization. No specific complaints at this time. Review of Systems Eyes: Chronic poor vision to the right eye, strabismus Neurologic: as per Subjective / HPI; no headache(s) and no memory loss Results & Data ([facility]) Vital Signs (Past 12 Hours) Vital Signs Temp Pulse Pulse Resp BP Pulse Ox 01/18/21 07:36 36.6 C 80 20 153/91 H 94 01/18/21 03:00 36.6 C 84 18 138/79 92 01/17/21 23:45 81 01/17/21 22:02 36.7 C 86 18 143/84 H 91 Exam (Neuro) Constitutional: well developed and well nourished; no acute distress Neurologic: Oriented to:: Person, Place and Time Memory: Short Term Intact and Remote Intact Attention: Span Intact and Concentration Intact Speech Fluency: negative Dysarthria Speech Aphasia: negative Aphasia Fund of Knowledge: Current Events, Past History and Vocabulary Cranial Nerves: Normal II, V, VII, VIII, IX, X, XI and XII; Abnorm III, IV, (Moderate degree of strabismus, right eye) Motor Strength: Normal Lower Extremities and Normal Upper Extremities Muscle Bulk/Involuntary Movements: No Involuntary Movements; negative Muscle Atrophy Coordination: Normal; negative Limited Balance and Finger-Nose Abnormal Coding Level of Care Code 62761 Subseq Hosp Care Lvl 2 Diagnoses Stroke-like symptoms R29.90
--- NOTE | 2021-01-18 11:40 | Electroencephalogram ---
EEG Procedure Note Date of Service January 18, 2021 Start / End Times Start Time: 10:52 AM End Time: 11:12 AM Referring Physician Federico Geller History Seizure-like episode Home Medication List Medication Instructions Recorded Confirmed Type latanoprost 1 drp OPHTHALMIC (EYE) UD 01/16/21 01/16/21 History lisinopril 20 mg PO DAILY 01/16/21 01/16/21 History metformin 1,000 mg PO BID 01/16/21 01/16/21 History metoprolol succinate 25 mg PO DAILY 01/16/21 01/16/21 History multivitamin 1 tab PO DAILY 01/16/21 01/16/21 History Inpatient Medication List Lisinopril (Lisinopril 20 Mg Tab) 20 mg PO DAILY [facility] Stop: 02/16/21 08:59 Last Admin: 01/18/21 09:58 Dose: 20 mg Documented by: [id number] Admin: 01/17/21 09:31 Dose: 20 mg Documented by: [id number] Metoprolol Succinate (Metoprolol Succ 25mg Ext Rel Tab) 25 mg PO DAILY [facility] Stop: 02/16/21 08:59 Last Admin: 01/18/21 09:58 Dose: 25 mg Documented by: [id number] Admin: 01/17/21 09:31 Dose: 25 mg Documented by: [id number] Potassium Chloride (Potassium Chloride 20 Meq/15 Ml Udc) 40 meq PO QAM [facility] Stop: 02/16/21 08:59 Last Admin: 01/18/21 09:58 Dose: 40 meq Documented by: [id number] Admin: 01/17/21 09:31 Dose: 40 meq Documented by: [id number] Discontinued Medications Potassium Chloride (K Saurav / Wtr) 10 meq in 100 mls @ 100 mls/hr IV ONE ONE Stop: 01/16/21 23:33 Last Infusion: 01/17/21 01:55 Dose: 0 mls/hr Documented by: [id number] Admin: 01/16/21 23:43 Dose: 100 mls/hr Documented by: [id number] Ioversol (Optiray 350 500ml) 113 ml IV ONCE ONE Stop: 01/16/21 21:50 Last Admin: 01/16/21 21:49 Dose: 113 ml Documented by: [id number] Description This is a 21 electrode EEG with a single channel dedicated to limited EKG. The electrodes were placed in accordance with the International 10-20 system. There is a posterior dominant rhythm of 8 to 9 Hz which is symmetrically distributed and attenuates with eye opening. There is a normal anterior to posterior organization. Photic stimulation is unremarkable. Hyperventilation is not performed. There is a symmetric frontal beta rhythm. There is no focal or lateralized slowing. No epileptiform abnormalities appreciated. Interpretation Normal-appearing awake/drowsy EEG. A normal EEG does not completely exclude a diagnosis of epilepsy. Further clinical correlation may be needed. [facility] Procedure Codes Indication for Procedure (1) Syncope and collapse: (2) Seizure-like activity: Neurology Neurology: 46632 EEG include record awake & drowsy
[2021-01-18 12:15] LABS: iSTAT Creatinine 1.2 mg/dl (0.6-1.3); iSTAT Hemoglobin 14.3 g/dl (12.0-16.0); iSTAT Ionized Calcium 1.16 mmol/l (1.12-1.32); iSTAT Potassium 3.2 mmol/L (3.3-5.0)
[2021-01-18] MEDS ORDERED: STROKE PATIENT DISCHARGE STA (16:40)
--- NOTE | 2021-01-18 16:55 | Discharge Summary ---
Date of Service date of admission - January 17, 2021 date of discharge - January 18, 2021 Admission HPI Per Admitting Provider Viridiana Thomson is here for acute onset of tremor, expressive aphasia, vision changes and weakness. At 8:30PM she was eating dinner and then had to go to the bathroom. She was not able to make it to the bathroom in time and went to clean herself up. When she was coming back from the bathroom she was having trouble walking, shaking, and was having slurred speech and word finding difficulty. She did not fall. While currently talking with her she is stopping to think about what she is going to say next and will look at her family member to help tell some of the events. She also brought up that she could not see well during the event and that it was like it was getting dark, when I asked if it felt like the curtains were coming down she said it did seem like that. She has improvement in her symptoms and family said she was currently 85-90% at her baseline. When I saw that she had uvula deviation to the right she brought up that sometimes her uvula goes to one side or another and it will change sides when she coughs, I had her cough and it continued to deviate to the right. She was normal to family prior to event and somewhat sleepy after the event. She sees Dr. Gallagher with cardiology and Dr. Harry as a PCP. She has a history of atrial fibrillation that had developed 5-6 years ago, she was previously on what sounded like warfarin and then stopped as she did not like needles. They also brought up there was concern in the past of bleeding hemorrhoids. She does take metoprolol for A. fib.. She explained that she can feel when she is in atrial fibrillation and notices it in her eyes as a throbbing. smoking hx. 14 pack years quit 30 years ago COVID vaccine X2 last on 12/11 ([employer] Messaging) Principal Diagnosis Transient Ischemic Attack (TIA) Discharge Exam Constitutional well developed and well nourished; no acute distress and no altered mental status ENMT external ear and nose normal, oropharynx normal Respiratory normal respiratory effort, lungs clear to auscultation Cardiovascular Rate/Rhythm: regular rate and + irregularly irregular Heart Sounds: normal S1 and normal S2; no murmur Vessels: posterior tibial pulses present and dorsalis pedis pulses present; no JVD Extremities: no edema Gastrointestinal (Abdomen) normal bowel sounds, soft, nontender, no hepatosplenomegaly Neurologic moves all extremities; no focal motor deficits Speech / Cognition: normal speech Motor/Sensory: no tremor and no pronator drift Psychiatric Orientation: alert and oriented x 3 Discharge Data Allergies Allergy/AdvReac Type Severity Reaction Status Date / Time aspirin Allergy Unknown RED RASH Verified 01/16/21 21:25 diphenhydramine Allergy RED RASH Verified 01/16/21 21:25 Consultations [facility] PT, OT Speech therapy Procedures Performed Echocardiogram: * EF 25-30% * global hypokinesis * normal valvular function EEG - no seizure activity. Ordered Studies Chest X-Ray 01/16/21 21:22 XR chest 1V portable CLINICAL HISTORY: Stroke Like Symptoms COMPARISON STUDY: 09/03/2013 FINDINGS: The heart is enlarged. There is no overt failure. There is no focal pulmonary consolidation. There are no pleural effusions. There is mild prominence of central pulmonary arteries. This remain similar to the prior study[ IMPRESSION: Cardiomegaly. No acute findings. ACT 112: Negative or not required by law. Electronically signed by: Andrzej Ferreira M.D. 01/17/2021 8:[address] 01/16/21 21:22 CT head/brain wo con CLINICAL HISTORY: Stroke Like Symptoms COMPARISON STUDY: MRI the brain dated 11/20/2020 TECHNIQUE: Axial CT of the brain is performed from the vertex to the skull base. IV contrast was not administered for this examination. A dose lowering technique was utilized adhering to the principles of ALARA. CT DOSE: FINDINGS: No intra or extra-axial mass lesions are visualized. There is no CT evidence of acute cortical infarction. There is no evidence of midline shift. There is no acute hemorrhage. No calvarial fractures are visualized. There are patchy white matter hypodensities likely on a small vessel basis. There is no evidence of pathologic ventricular dilatation. There is no evidence of acute sinusitis IMPRESSION: No acute intracranial findings ACT 112: Negative or not required by law. Electronically signed by: Andrzej Ferreira M.D. 01/17/2021 7:30 AM Head CTA 01/16/21 21:22 CT angio head w con CLINICAL HISTORY: Stroke Like Symptoms TECHNIQUE: CT angiography of the head was performed in a dynamic helical fashion during intravenous administration of 113 cc of Optiray. MIP imaging was performed. A dose lowering technique was utilized adhering to the principles of ALARA. CT DOSE: 1264.73 mGy.cm COMPARISON STUDY: MRI the brain dated 11/20/2020 FINDINGS: There are no lesion suspicious for aneurysm. There are no major intracranial branch occlusions. The dural venous sinuses appear patent. There is mild right-sided and [id number] left-sided narrowing of the distal M1 segments of the middle cerebral arteries. IMPRESSION: 1. Mild right-sided and mild to moderate left-sided narrowing of the distal M1 segments of the middle cerebral arteries. 2. No evidence of major intracranial branch occlusion ACT 112: Negative or not required by law. Electronically signed by: Andrzej Ferreira M.D. 01/17/2021 8:07 AM Neck CTA 01/16/21 21:22 CT angio neck with con CLINICAL HISTORY: Stroke Like Symptoms COMPARISON STUDY: No previous studies for comparison. TECHNIQUE: CT angiography was performed from the aortic arch to the skull base. MIP imaging was performed. The patient was scanned in a dynamic helical fashion during intravenous administration of 113 cc of Optiray. A dose lowering technique was utilized adhering to the principles of ALARA. CT DOSE: Technique: CT angiogram of the carotid and vertebral arteries was obtained using intravenous contrast and 3-D reconstruction. NASCET criteria was utilized. Findings: The right carotid revealed no evidence of aneurysm and no evidence of dissection. There is no evidence of hemodynamic significant stenosis. The left carotid revealed no evidence of hemodynamic significant stenosis. There is no evidence of aneurysm. There is no evidence of dissection. There is a common origin of the brachiocephalic left common carotid artery. There is no evidence of hemodynamically significant vertebral stenosis. There is no evidence of vertebral dissection. IMPRESSION: No evidence of hemodynamically significant carotid or vertebral artery stenosis. No evidence of dissection. ACT 112: Negative or not required by law. Electronically signed by: Andrzej Ferreira M.D. 01/17/2021 8:01 AM Brain MRI 01/17/21 04:05 MRI OF THE BRAIN WITHOUT IV CONTRAST CLINICAL HISTORY: Dizziness. Stroke like symptoms. COMPARISON STUDY: CT of the brain dated 01/16/2021. TECHNIQUE: MRI of the brain was performed utilizing various T1 and T2-weighted sequences in the axial, sagittal, and coronal planes. IV contrast was not administered for this examination. FINDINGS: Brain parenchyma: There is age-related involutional change noting moderate subcortical and periventricular microangiopathic disease. There is no hemorrhage or mass effect. There is no restricted diffusion to suggest acute ischemia. Mccann-white matter differentiation is preserved. No extra-axial fluid collection is seen. The cerebellar tonsils are normal in configuration. Ventricles, sulci, and cisterns: Prominent secondary to involutional change. Pituitary and sella: Unremarkable. Intracranial vasculature: Normal flow voids are maintained at the skull base. Orbits: The bony orbits are grossly intact. Orbital contents are normal in appearance noting bilateral ocular lens implants. Sinuses and mastoids: Clear. Calvarium: Unremarkable. Cervical cord: Partially visualized cervical spinal cord is normal in morphology and signal intensity. IMPRESSION: No acute intracranial abnormality. ACT 112: Negative or not required by law. Electronically signed by: Trung Abdalla M.D. 01/18/2021 7:13 AM KUB X-Ray 01/18/21 08:20 XR KUB/Abdomen 1 view CLINICAL HISTORY: incontinence; assess for fecal impaction COMPARISON STUDY: None FINDINGS: There is no pathologic bowel dilatation. There is scattered stool within the colon. There are no findings to indicate fecal impaction. There is a punctate calcification projected over the right kidney suspicious for a calculus. IMPRESSION: 1. No evidence of pathologic bowel dilatation 2. No evidence of fecal impaction 3. Suspected punctate left renal calculus ACT 112: Negative or not required by law. Electronically signed by: Andrzej Ferreira M.D. 01/18/2021 9:39 AM Hospital Course (1) TIA (transient ischemic attack): Symptoms at presentation were felt to be most consistent with TIA. Seizure was also a possibility but felt to be unlikely. She underwent TIA work-up including telemetry, echocardiogram, and CTA head/neck. All studies were normal except for markedly decreased LV function to 25-30% along with her a.fib. CTAs showed mild to moderate narrowing of her bilateral MCAs but no intervention needed for such. Neurology, PT, OT, and speech therapy all saw the patient in consultation. Given the patient's permanent atrial fibrillation neurology strongly recommended anticoagulation. Patient was indeed agreeable to such, and will initiate eliquis 5mg BID. Statin therapy was also advised; she will initiate lipitor 20mg daily. LDL was 89 on lipid profile. Patient was seen by PT/OT/speech therapy and no services were recommended. Stroke instructions were given at time of discharge. (2) Seizure-like activity: EEG negative for seizure activity. Her "shaking" during her TIA event was not felt to be a seizure event. (3) Atrial fibrillation: Permanent. Rates were occasionally over 100 but largely controlled. Discussions were had with the patient regarding need for anticoagulation in light of her TIA. She was agreeable to initiation of eliquis 5mg BID. She will continue metoprolol succinate 25mg daily at discharge. (4) Diabetes mellitus: HbA1C 6.2%. Most c/w pre-diabetes. Continue dietary control. (5) Hyperlipidemia: LDL 89. Lipitor 20mg daily started. (6) Hypertension: BPs mildly elevated while hospitalized. She will continue lisinopril and metoprolol succinate. (7) Cardiomyopathy: Etiology of her depressed LV function is uncertain. Echo showed EF 25- 30%. Consider tachyarrhythmia induced from her a.fib. Consider ischemia given multiple CAD risk factors. Her primary environmental education specialist, Dr Gallagher, was made aware of her new onset cardiomyopathy. She remains on metoprolol succinate and KELVIN. No decompensation while here. Daily weights, salt restriction, fluid restriction advised at home. She will f/u with Dr Mars Gallagher - [facility] [place] [facility] - within 2-3 weeks post-d ischarge to address this newly-found problem. (8) Hemorrhoids: Patient expressed concern that her hemorrhoids would bleed on anticoagulation. Thus, I recommended use of anusol cream prn for 5-7 days at a time if her hemorrhoids are bothersome. (9) Chronic kidney disease, stage 3a: baseline CrCl 40s/50s discharge Cr 0.86 Total Time Total Time Spent Total Time Spent (In Minutes): 45 Total Time Includes: Examination of the Patient, Discharge Planning, Medication Reconciliation and Communication With Other Providers Discharge Plan Discharge Items Patient Disposition: Home - Self-Care Reason For Visit: STROKE-LIKE SYMPTOMS Discharge Diagnosis: TIA (Transient ischemic attack) Atrial fibrillation Newly-diagnosed congestive heart failure Activity: Resume your previous activity Non-emergency contact: Primary Care Provider Call non-emergency contact if: you have any medication questions and your symptoms worsen Follow-up/Referrals: Jb Gallagher MD [Physician] - (2-3 weeks to discuss CHF) Case,Raven Coughlin PA-C [Physician Center Sales And Service Associate] - (4-6 weeks; dx - TIA ) Enriqueta Harry MD [Primary Care Provider] - 01/21/21 1:10 pm (within 1 week ) Diet: Carb Consistent or DM2 and Heart Healthy Fluids: 1800ml (7 cups) Ambulatory Orders: Basic Metabolic Panel (Routine) Timeframe: 1 Day Location: Determined by Patient Ordered By: Rahul Aguilar Attending Provider Instructions: Mrs Thomson, You were treated for a "TIA" event. A TIA is not the same thing as a stroke. However, TIA is a risk factor for future stroke. A TIA is a neurological symptom or set of symptoms that come on abruptly and then resolve. Resolution often occurs within a few hours. Typically with a TIA the MRI brain is negative for stroke. Indeed your MRI did NOT show a stroke. You have multiple risk factors for stroke including diabetes, high blood pressure, and a.fib. To reduce your chances of a stroke we are strongly recommending that you start on a blood thinner again. Your blood thinner will be ELIQUIS. We have called this to [facility] for you. The eliquis will thin your blood and help prevent the development of blood clots in your heart. You have been concerned about your hemorrhoids bleeding. Thus, to help shrink the hemorrhoids and reduce the chances of bleeding I have called in Anusol cream for you. When your hemorrhoids are bothering you/irritated/enlarged please use the Anusol cream twice to three times a day for about 7 days. In addition to the above we found that your heart function is reduced. This means that the squeezing ability of the heart is poor. This is often referred to as congestive heart failure. At this time we are uncertain if the congestive heart failure was caused by your a.fib or some other factor (coronary artery disease, etc). Dr Gallagher is aware and plans to do more testing of your heart in the near-future. Recommendations - 1. start ELIQUIS blood thinner - 5mg twice daily every day. Start your first dose TONIGHT. 2. anusol cream as needed for hemorrhoids. 3. check your weight EVERY MORNING after you awaken. Please write down your weights on a pad of paper. If you gain more than 2- pounds of weight in 1-2 days this is often a sign of fluid retention from your congestive heart failure. If you see this happen please let Dr Harry or Dr Gallagher know right away. 4. HOLD your metformin at time of discharge. You will need repeat blood work to ensure your kidney function level is ok before resuming it. You can have the blood work done either at [facility] or [facility] - your preference. Please have this blood work done either 01/19 or 01/20. If the blood work is normal you can resume the metformin then. 5. take atorvastatin cholesterol medication 20mg once daily every day. Prescription sent to [facility] for you. Follow-up - see separate section Return to [facility] if - * you have any recurrent neurological symptoms (weakness in an arm or leg, difficulty speaking, numbness, severe dizziness, etc) * you have worsening shortness of breath * you have chest pains * any other concerns It was a pleasure meeting you, -Dr Vee Martineztl Manager Er Provider Instructions: Risk Factors for Stroke: You can reduce your chances of stroke by working with your medical provider to adopt a healthy lifestyle. Some specific ways to lower your chance of stroke are: * If you are a smoker, now is the time to stop smoking cigarettes * If you are diabetic, improve the control of your blood sugars * Avoid excessive amounts of alcohol * Control high blood pressure * Lose weight if you are overweight * Be sure to lead an active lifestyle * Eat a healthy diet low in salt, cholesterol and fat You should know about other risk factors for stroke that you are unable to control. These include: * Age 55 years or older * Male gender * Certain racial groups: , or / * Family History of Stroke, Mini stroke or Heart Attack * Sickle Cell Disease Who to Call and When: Medical Emergencies: Call 911 immediately if you experience any of the following warning signs and symptoms of Stroke: * Sudden numbness or weakness of the face, arm or leg, especially on one side of the body * Sudden confusion, trouble speaking or understanding * Sudden trouble seeing in one or both eyes * Sudden trouble walking, dizziness, loss of balance or coordination * Sudden severe headache with no cause Do not delay calling 911 if you experience any warning signs or symptoms of a stroke. Delay in seeking medical attention may affect what treatments can be given to you. . ---- Blood thinner information: Medication Instructions: Your a.fib is typically treated with an anticoagulant. Anticoagulants will thin your blood to help prevent clots in your heart. Your anticoagulant is "ELIQUIS." * You should take her medication exactly as directed. * Never skip a dose. * Never take a double dose. If you miss a dose, take it as soon as you remember. Call your Primary Care doctor or environmental education specialist if you experience any of the following: * Pain that worsens when you are active or when you stand still for a long time * Chest Pain * Sudden Shortness of Breath * Rapid or pounding heart beat * Fainting * Dizziness * Cough with blood or bloody sputum * Sweating more than normal * Bruises * Heavy or uncontrolled bleeding * Blood in your urine, stool or vomit * Black or tarry stools * Heavy nose bleeding Pending Studies at Discharge: No Stand-Alone Forms: Medications to Prevent Stroke, [facility] [employer], Smoking Cessation Medications and DC Order Prescriptions: New Eliquis 5 mg tablet 5 mg PO BID Qty: 60 RF: 5 hydrocortisone [Anusol-HC] 2.5 % cream with perineal applicator 1 applic WV Q6H PRN (Reason: hemorrhoids) Qty: 30 RF: 2 atorvastatin [Lipitor] 20 mg tablet 20 mg PO DAILY Qty: 30 RF: 5 Continued lisinopril 20 mg tablet 20 mg PO DAILY RF: 0 metoprolol succinate 25 mg tablet extended release 24 hr 25 mg PO DAILY RF: 0 multivitamin Tablet 1 tab PO DAILY RF: 0 latanoprost 0.005 % drops 1 drp ophthalmic (eye) UD RF: 0 Discontinued metformin 1,000 mg Tablet 1,000 mg PO BID RF: 0 Discharge Orders: Discharge Order (Routine); Ordered 01/18/21 Ordered By: Rahul Romero/Other Patient Handouts: Managing Type 2 Diabetes, What Is a TIA?, Managing Diabetes: The A1C Test Admission Data Admit Date/Time: 01/17/21 00:25 Attending Provider: Rahul Baxter Admit Provider: Federico Geller Primary Care Provider: Enriqueta Harry Other Providers: Chad Solorzano ; Grisel Recio Other Interventions: Discharge Summary Assessment (RN) Last Done: 01/18/21 17:05 Coding Level of Care Code D/C Day Management >30 mins Diagnoses TIA (transient ischemic attack) G45.9 Seizure-like activity R56.9 Atrial fibrillation I48.91 Diabetes mellitus E11.9 Hyperlipidemia E78.5 Hypertension I10 Cardiomyopathy I42.9 Hemorrhoids K64.9 Chronic kidney disease, stage 3a N18.31
--- NOTE | 2021-01-18 19:48 | Pharmacy Report ---
Pharmacist Stroke Counseling - Date of Service January 18, 2021 - Scope: Pharmacy has been consulted to provide medication discharge counseling for this patient admitted with transient ischemic attack as per the Pharmacist Discharge Counseling for Stroke Patients Protocol. - Medications on Discharge: Home Medications Medication Instructions Recorded Confirmed latanoprost 1 drp OPHTHALMIC (EYE) UD 01/16/21 01/16/21 lisinopril 20 mg PO DAILY 01/16/21 01/16/21 metoprolol succinate 25 mg PO DAILY 01/16/21 01/16/21 multivitamin 1 tab PO DAILY 01/16/21 01/16/21 New Rx's Medication Instructions Recorded apixaban [Eliquis] 5 mg PO BID #60 tab 01/18/21 atorvastatin [Lipitor] 20 mg PO DAILY #30 tab 01/18/21 hydrocortisone [Anusol-HC] 1 applic HI Q6H PRN #30 g 01/18/21 - Action: The above medications, specifically ones for stroke treatment/prophylaxis, have been reviewed in detail with the patient and/or patient volunteer patient representative(s) prior to discharge. This includes indication, common adverse reactions, drug interactions, and medication administration. Medication counseling has been employed using the teach-back method to ensure understanding. - Outcome: The patient and/or patient volunteer patient representative(s) have demonstrated understanding of the medications. Additional comments: * Spoke with patient via phone prior to discharge * Patient was unfamiliar with her medications and kept requesting that everything be "written out" or "put on the prescription bottle" * She reports previously being on anticoagulation for AF, but it appears she decided to D/C because of "inconvenience" with INR monitoring (warfarin). Explained that Eliquis does not need routine monitoring. Her main concern was regarding costs; explained that case management already contacted her pharmacy and that it will cost $30/month. She understands importance of BID dosing for AF stroke prevention. * Patient was possibly previously on a statin (Livalo q3 days), but she is unable to recall this. She is vague for discontinuation reasons, kept talking about "insurance changes"... she is unable to confirm or deny prior statin intolerance. She agrees to take atorvastatin as Rx'd this admission. Advised to monitor and report any myalgia. * Advised her to bring discharge packet and Rx bottles with her to her PCP f/u as it sounds like she has a lot of questions and unsure how much information she is able to retain. Thank you for allowing pharmacy to be involved in the care of this patient. Please call [phone] with any additional questions
== END 2021-01-18 18:40 | disposition home or self-care (01) | DRG 69 ==
LOC: ED 21:04 → 2N 01-17 00:25 → SUATTDRO 01-17 00:25 → 2N 01-17 01:59

== ENCOUNTER 2022-06-22 02:17 | Observation (INO) ==
[2022-06-22] MEDS ORDERED: ALBUT/IPRATROP 3MG/0.5MG NEB 3 ML VIAL INH STA (02:38)
--- NOTE | 2022-06-22 02:42 | Emergency Department Note ---
History of Present Illness General Chief complaint: Cough Stated complaint: COUGH,SHAKEY Time Seen by Provider: 06/22/22 02:28 History of Present Illness This 76-year-old on Eliquis for history of A. fib presents to the ER complaining of hemoptysis cough and congestion Location: Chest Quality: Uncomfortable Severity: Moderate Duration: Today Timing: Today Context: Patient was concerned she was coughing up blood and came in Modifying factors: better with rest; worse with activity Patient states [place] Patient states tonight she was concerned as she had a large episode of hemoptysis. She is on Eliquis for history of A. fib. Patient denies chest pain, dyspnea, high fevers, lethargy, neck stiffness, abdominal pain. Home Medications Medication Instructions Recorded Confirmed Type latanoprost 0.005 % eye drops 1 drp ophthalmic (eye) UD 01/16/21 05/25/21 History lisinopril 20 mg tablet 20 mg PO DAILY 01/16/21 01/04/22 History metoprolol succinate 25 mg 25 mg PO DAILY 01/16/21 01/04/22 History tablet,extended release 24 hr multivitamin 1 tab PO DAILY 01/16/21 01/04/22 History apixaban 5 mg tablet (Eliquis) 5 mg PO BID #60 tabs 01/18/21 01/04/22 Rx atorvastatin 20 mg tablet (Lipitor) 20 mg PO DAILY #30 tabs 01/18/21 01/04/22 Rx hydrocortisone 2.5 % topical cream 1 applic AR Q6H PRN hemorrhoids 01/18/21 Rx with perineal applicator #30 grams (Anusol-HC) hydrochlorothiazide 25 mg tablet 25 mg PO DAILY 05/25/21 01/04/22 History Allergies Allergy/AdvReac Type Severity Reaction Status Date / Time aspirin Allergy Unknown RED RASH Verified 01/04/22 10:26 diphenhydramine Allergy RED RASH Verified 01/04/22 10:26 Past Med/Surg History Medical History (Updated 06/22/22 @ 06:25 by Alyson Quiñonez PA-C) Atrial fibrillation Diabetes mellitus Hyperlipidemia Hypertension Hypokalemia Surgical History (Updated 06/22/22 @ 02:39 by Alyson Quiñonez PA-C) No pertinent past surgical history Social History Smoking Status: Never smoker Hx Alcohol Use: No Hx Substance Use: No Preferred Language: Ecuadorean Communication Ability: Effective Mixed [employer] Worker Required: No Beliefs That Will Affect Care: None Current Living Situation: Alone Feels Safe at Home: Yes Assistive Devices: Glasses and Walker Review of Systems A total of 10 systems reviewed and were otherwise negative Physical Exam Vital Signs Vital Signs - 24 hr 06/22/22 02:22 06/22/22 02:59 06/22/22 03:09 Temperature 36.5 C Temperature Source Oral Pulse Rate 99 H 82 Pulse Rate [Finger] 85 Respiratory Rate 20 18 Respiratory Effort / Characteristics Non-Labored Spontaneous Respiratory Depth Normal Normal Blood Pressure 188/111 H 199/138 H Blood Pressure [Left Arm] 199/138 H Blood Pressure Mean 136 Blood Pressure Mean [Left Arm] 158 Blood Pressure Position [Left Arm] Sitting Pulse Oximetry 96 97 Oxygen Delivery Method Room Air Room Air Sepsis Recent Fever Within 48 Hours No Sepsis New/Unexplained Change in Mental Status No Sepsis Action Taken by Nursing No Action Required 06/22/22 03:10 06/22/22 03:35 06/22/22 03:45 Temperature Temperature Source Pulse Rate 84 Pulse Rate [Finger] 81 Respiratory Rate 18 18 Respiratory Effort / Characteristics Non-Labored Spontaneous Respiratory Depth Normal Blood Pressure Blood Pressure [Left Arm] 195/112 H 185/95 H Blood Pressure Mean Blood Pressure Mean [Left Arm] 139 125 Blood Pressure Position [Left Arm] Sitting Sitting Pulse Oximetry 100 96 Oxygen Delivery Method Room Air Room Air Sepsis Recent Fever Within 48 Hours Sepsis New/Unexplained Change in Mental Status Sepsis Action Taken by Nursing 06/22/22 05:45 Temperature Temperature Source Pulse Rate Pulse Rate [Finger] 77 Respiratory Rate 18 Respiratory Effort / Characteristics Non-Labored Spontaneous Respiratory Depth Normal Blood Pressure Blood Pressure [Left Arm] 155/97 H Blood Pressure Mean Blood Pressure Mean [Left Arm] 116 Blood Pressure Position [Left Arm] Sitting Pulse Oximetry 94 Oxygen Delivery Method Room Air Sepsis Recent Fever Within 48 Hours Sepsis New/Unexplained Change in Mental Status Sepsis Action Taken by Nursing VITALS: Vitals are noted on the nurse's note and reviewed by myself. Vital signs hypertensive. GENERAL: Pleasant female with her daughter, in no acute distress, nondiaphoretic, well-developed well-nourished. SKIN: The skin was without rashes, erythema, or bruising. There is no tenting of the skin. Capillary reflex less than 2 seconds. HEAD: Normocephalic atraumatic. EARS: External auditory canals clear, EYES: Pupils equal round and reactive to light and accommodation. Conjunctivae without injection, sclerae without icterus. Extraocular movements intact. NOSE: Patent, turbinates without inflammation or discharge. MOUTH: Mucous membranes moist. Pharynx without erythema or exudate. Uvula midline. Airway patent. Tongue does not deviate. NECK: Supple without nuchal rigidity. No lymphadenopathy. No thyromegaly. Cervical spine is nontender. No JVD. HEART: Regular rate and rhythm LUNGS: Mild diffuse end expiratory wheezes, without rales or rhonchi. No re tractions or accessory muscle use. ABDOMEN: Positive bowel sounds x 4. Normal tympanic percussion. Soft, nontender, without masses or organomegaly. Colvin sign negative. No guarding or rebound tenderness. No CVA tenderness MUSCULOSKELETAL: No muscle atrophy, erythema, noted. NEURO: Patient was alert and oriented to person place and time. Normal sensation to light and sharp touch. No focal neurological deficits. Course Administered Medications Discontinued Medications Albuterol (Albut/Ipratrop 3mg/0.5mg Neb 3 Ml Vial) 3 ml INH NOW STA Stop: 06/22/22 02:39 Last Admin: 06/22/22 03:04 Dose: 3 ml Documented By: BLU Ioversol (Optiray 300 500ml) 125 ml IV ONCE ONE Stop: 06/22/22 04:25 Last Admin: 06/22/22 04:25 Dose: 113 ml Documented By: JAYME Metoprolol Tartrate (Metoprolol Tartrate 1 Mg/Ml Vial) 5 mg IV NOW STA Stop: 06/22/22 03:03 Last Admin: 06/22/22 03:09 Dose: 5 mg Documented By: BLU Medical Decision Making Medical Records Attestation: I reviewed the patient's medical records. Home Medications Current Medication List: was personally reviewed by me Laboratory Data Attestation: I reviewed the patient's lab results. Result diagrams: 06/22/22 02:56 06/22/22 02:56 Lab Results 06/22/22 06/22/22 06/22/22 Range/Units 02:56 02:56 03:11 WBC 6.30 (4.8-10.8) K/ul RBC 4.31 (3.93-5.22) M/uL Hgb 12.6 (12.0-16.0) g/dl Hct 38.3 (34.1-44.9) % MCV 88.9 (80.0-100.0) fL MCH 29.2 (25.0-34.0) pg MCHC 32.9 (32.0-36.0) g/dL RDW Std Deviation 45.5 (36.4-46.3) fL RDW Coeff of [place] 14.1 (11.5-14.5) % Plt Count 192 (130-400) K/uL MPV 10.5 (9.4-12.3) fL Immature Gran % (Auto) 0.2 % Neut % (Auto) 61.6 % Lymph % (Auto) 23.8 % [place] % (Auto) 11.7 % Eos % (Auto) 2.2 % Baso % (Auto) 0.5 % Neut # (Auto) 3.88 (1.4-6.5) K/uL Lymph # (Auto) 1.50 (1.2-3.4) K/uL [place] # (Auto) 0.74 (0.24-0.82) K/uL Eos # (Auto) 0.14 (0-0.50) K/uL Baso # (Auto) 0.03 (0-0.2) K/uL Immature Gran # (Auto) 0.01 (0.00-0.02) K/uL Sodium 142 (136-145) mmol/L Potassium 3.8 (3.5-5.1) mmol/L Chloride 110 H (98-107) mmol/L Carbon Dioxide 26 (21-32) mmol/L Anion Gap 6 (3-11) BUN 14 (6-23) mg/dl Creatinine 0.98 (0.6-1.2) mg/dl Est Cr Clr Drug Dosing Not Reportable Est GFR ( Amer) 64.5 ml/min Est GFR (Non-Af Amer) 55.6 ml/min BUN/Creatinine Ratio 14.3 (10-20) Glucose 105 H (70-99(Fasting)) mg/dl Calcium 9.3 (8.5-10.1) mg/dl Total Bilirubin 0.6 (0.2-1.0) mg/dl AST 15 (13-39) U/L ALT 13 (7-52) U/L Alkaline Phosphatase 47 (34-104) U/L Troponin I High Sens 8.0 (0-14) pg/ml Total Protein 6.7 (6.0-8.3) gm/dl Albumin 4.0 (3.4-5.0) gm/dl Globulin 2.7 (2.5-4.0) gm/dl Albumin/Globulin Ratio 1.5 (0.9-2) Adenovirus (PCR) Not Detected (NotDetected) B. pertussis DNA (PCR) Not Detected (NotDetected) B.parapertussis DNA PCR Not Detected (NotDetected) C. pneumoniae DNA (PCR) Not Detected (NotDetected) Coronavirus OC43 (PCR) Not Detected (NotDetected) Coronavirus HKU1 (PCR) Not Detected (NotDetected) Coronavirus 229E (PCR) Not Detected (NotDetected) SARS-CoV-2 (PCR) Not Detected (NotDetected) Coronavirus NL63 (PCR) Not Detected (NotDetected) Human Metapneumovir PCR Not Detected (NotDetected) Influenza Type A (PCR) Not Detected (NotDetected) Influenza Type B (PCR) Not Detected (NotDetected) M. pneumoniae (PCR) Not Detected (NotDetected) Parainfluenza 1 (PCR) Not Detected (NotDetected) Parainfluenza 2 (PCR) Not Detected (NotDetected) Parainfluenza 3 (PCR) Not Detected (NotDetected) Parainfluenza 4 (PCR) Not Detected (NotDetected) RSV (PCR) Not Detected (NotDetected) Entero/Rhino (PCR) Not Detected (NotDetected) 06/22/22 Range/Units 05:25 WBC (4.8-10.8) K/ul RBC (3.93-5.22) M/uL Hgb (12.0-16.0) g/dl Hct (34.1-44.9) % MCV (80.0-100.0) fL MCH (25.0-34.0) pg MCHC (32.0-36.0) g/dL RDW Std Deviation (36.4-46.3) fL RDW Coeff of [place] (11.5-14.5) % Plt Count (130-400) K/uL MPV (9.4-12.3) fL Immature Gran % (Auto) % Neut % (Auto) % Lymph % (Auto) % [place] % (Auto) % Eos % (Auto) % Baso % (Auto) % Neut # (Auto) (1.4-6.5) K/uL Lymph # (Auto) (1.2-3.4) K/uL [place] # (Auto) (0.24-0.82) K/uL Eos # (Auto) (0-0.50) K/uL Baso # (Auto) (0-0.2) K/uL Immature Gran # (Auto) (0.00-0.02) K/uL Sodium (136-145) mmol/L Potassium (3.5-5.1) mmol/L Chloride (98-107) mmol/L Carbon Dioxide (21-32) mmol/L Anion Gap (3-11) BUN (6-23) mg/dl Creatinine (0.6-1.2) mg/dl Est Cr Clr Drug Dosing Est GFR ( Amer) ml/min Est GFR (Non-Af Amer) ml/min BUN/Creatinine Ratio (10-20) Glucose (70-99(Fasting)) mg/dl Calcium (8.5-10.1) mg/dl Total Bilirubin (0.2-1.0) mg/dl AST (13-39) U/L ALT (7-52) U/L Alkaline Phosphatase (34-104) U/L Troponin I High Sens 7.4 (0-14) pg/ml Total Protein (6.0-8.3) gm/dl Albumin (3.4-5.0) gm/dl Globulin (2.5-4.0) gm/dl Albumin/Globulin Ratio (0.9-2) Adenovirus (PCR) (NotDetected) B. pertussis DNA (PCR) (NotDetected) B.parapertussis DNA PCR (NotDetected) C. pneumoniae DNA (PCR) (NotDetected) Coronavirus OC43 (PCR) (NotDetected) Coronavirus HKU1 (PCR) (NotDetected) Coronavirus 229E (PCR) (NotDetected) SARS-CoV-2 (PCR) (NotDetected) Coronavirus NL63 (PCR) (NotDetected) Human Metapneumovir PCR (NotDetected) Influenza Type A (PCR) (NotDetected) Influenza Type B (PCR) (NotDetected) M. pneumoniae (PCR) (NotDetected) Parainfluenza 1 (PCR) (NotDetected) Parainfluenza 2 (PCR) (NotDetected) Parainfluenza 3 (PCR) (NotDetected) Parainfluenza 4 (PCR) (NotDetected) RSV (PCR) (NotDetected) Entero/Rhino (PCR) (NotDetected) Imaging Data Attestation: I personally reviewed and interpreted this imaging study as follows: MDM Narrative Prior records/ancillary studies reviewed. Triage Nursing notes reviewed. Additional history obtained from the family. The patient's history was concerning for respiratory difficulties. Differential diagnosis: Etiologies such as infections, reactive airway disease, pneumonia, pneumothorax, COPD, CHF, cardiac ischemia, pulmonary embolism, musculoskeletal, gastrointestinal, as well as others were entertained. Physical examination: As above. ER treatment provided: An order was placed for continuous cardiac monitoring. The monitor shows a rate of 60-1 20 with a sinus rhythm. Nebulizer, Rocephin, Zithromax On reassessment the patient felt better. Diagnostic interpretation by me: The electrocardiogram was negative for acute ischemic or pathologic change. Ordered for dyspnea EKG: Irregularly irregular, occasional PVC. No ST or T wave changes. Impression rate controlled A. fib interpreted by myself The labs revealed stable H&H Negative bio fire, negative troponin Imaging studies: Chest x-ray with possible right lung mass per my interpretation CTA CHEST: Negative for PE Complex mediastinal pleural-based opacity at the right lung base contains punctate calcifications and measures up to 2.5 x 2.6 cm. Differential would include rounded atelectasis, dense consolidation or malignancy. Definitive evaluation is recommended Radiologist: Julio Fontenot MD Consultation: A consultation was placed with the hospitalist. The case was discussed and diagnostics were reviewed. The patient was evaluated in the ER for further treatment. This appears to be consistent with hemoptysis with lung mass concerning for malignancy. Patient is on a DOAC. Medicine was consulted. She will be evaluated for admission. By the evaluation outlined above emergent etiologies such as CHF, cardiac ischemia, pulmonary embolism, reactive airway disease, pneumothorax, musculoskeletal, serious bacterial infections, as well as others were deemed relatively unlikely. The pt informed about the findings as listed above. All questions were answered and pleased with the treatment. The chart was completed utilizing [employer] Speech voice recognition software. Grammatical errors, random word insertions, pronoun errors, and incomplete sentences are an occassional consequence of this system due to software limitations, ambient noise, and hardware issues. Any formal questions or concerns about the content, text, or information contained within the body of this dictation should be directly addressed to the physician anesthesia assistant for clarification. Impression & Plan Cough with hemoptysis, Lung mass Discharge Plan Visit Data Chief Complaint: Cough Stated Complaint: COUGH,SHAKEY ED Provider: Dre Davis ED Midlevel Provider: Alyson Quiñonez Discharge Problem: Cough with hemoptysis, Lung mass Patient Disposition: Admitted As Inpatient Condition: Good Forms Stand Alone Forms: [facility] [employer] Prescriptions Prescriptions: No Action hydrochlorothiazide 25 mg tablet 25 mg PO DAILY lisinopril 20 mg tablet 20 mg PO DAILY metoprolol succinate 25 mg tablet extended release 24 hr 25 mg PO DAILY multivitamin Tablet 1 tab PO DAILY latanoprost 0.005 % drops 1 drp ophthalmic (eye) UD Eliquis 5 mg tablet 5 mg PO BID Qty: 60 5RF hydrocortisone [Anusol-HC] 2.5 % cream with perineal applicator 1 applic AR Q6H PRN (Reason: hemorrhoids) Qty: 30 2RF atorvastatin [Lipitor] 20 mg tablet 20 mg PO DAILY Qty: 30 5RF Referrals Referrals: Enriqueta Harry MD [Primary Care Provider] -
[2022-06-22] MEDS ORDERED: METOPROLOL TARTRATE 1 MG/ML VIAL IV STA (03:02)
[2022-06-22 03:05] LABS: Basophils # (auto) 0.03 K/uL (0-0.2); Basophils % (auto) 0.5 %; Eosinophils # (auto) 0.14 K/uL (0-0.50); Eosinophils % (auto) 2.2 %; Hematocrit (blood only) 38.3 % (34.1-44.9); Hemoglobin 12.6 g/dl (12.0-16.0); Immature Granulocytes # (auto) 0.01 K/uL (0.00-0.02); Immature Granulocytes % (auto) 0.2 %; Lymphocytes % (auto) 23.8 %; Mean Corpuscular Hemoglobin 29.2 pg (25.0-34.0); Mean Corpuscular Hgb Conc 32.9 g/dL (32.0-36.0); Mean Corpuscular Volume 88.9 fL (80.0-100.0); Mean Platelet Volume 10.5 fL (9.4-12.3); Monocytes # (auto) 0.74 K/uL (0.24-0.82); Monocytes % (auto) 11.7 %; Neutrophils # (auto) 3.88 K/uL (1.4-6.5); Neutrophils % (auto) 61.6 %; Platelet Count 192 K/uL (130-400); RDW Coefficient of Variation 14.1 % (11.5-14.5); RDW Standard Deviation 45.5 fL (36.4-46.3); Red Blood Count 4.31 M/uL (3.93-5.22)
[2022-06-22 03:32] LABS: Alanine Aminotransferase 13 U/L (7-52); Albumin Globulin Ratio 1.5 (0.9-2); Alkaline Phosphatase 47 U/L (34-104); Anion Gap 6 (3-11); Aspartate Aminotransferase 15 U/L (13-39); BUN Creatinine Ratio 14.3 (10-20); Bilirubin,Total 0.6 mg/dl (0.2-1.0); Blood Urea Nitrogen 14 mg/dl (6-23); Calcium 9.3 mg/dl (8.5-10.1); Carbon Dioxide 26 mmol/L (21-32); Chloride 110 mmol/L (98-107); Est GFR (African American) 64.5 ml/min; Est GFR (Non-African American) 55.6 ml/min; Globulin 2.7 gm/dl (2.5-4.0); Glucose 105 mg/dl (70-99(Fasting)); Potassium 3.8 mmol/L (3.5-5.1); Sodium 142 mmol/L (136-145); Total Protein 6.7 gm/dl (6.0-8.3)
[2022-06-22 04:10] LABS: Adenovirus PCR Not Detected (NotDetected); Bordetella parapertussis PCR Not Detected (NotDetected); Bordetella pertussis PCR Not Detected (NotDetected); Chlamydia pneumoniae PCR Not Detected (NotDetected); Coronavirus 229E PCR Not Detected (NotDetected); Coronavirus CoV-2 (COVID19)PCR Not Detected (NotDetected); Coronavirus HKU1 PCR Not Detected (NotDetected); Coronavirus NL63 PCR Not Detected (NotDetected); Coronavirus OC43PCR Not Detected (NotDetected); Human Metapneumovirus PCR Not Detected (NotDetected); Influenza A PCR Not Detected (NotDetected); Influenza B PCR Not Detected (NotDetected); Mycoplasma pneumoniae PCR Not Detected (NotDetected); Parainfluenza Virus 1 PCR Not Detected (NotDetected); Parainfluenza Virus 2 PCR Not Detected (NotDetected); Parainfluenza Virus 3 PCR Not Detected (NotDetected); Parainfluenza Virus 4 PCR Not Detected (NotDetected); Respiratory Syncytial VirusPCR Not Detected (NotDetected); Rhinovirus/Enterovirus PCR Not Detected (NotDetected)
[2022-06-22] MEDS ORDERED: OPTIRAY 300 500mL IV ONE (04:24)
[2022-06-22] MEDS ORDERED: cefTRIAXone SODIUM 2,000 MG/70 ML BAG IV STA (06:26)
[2022-06-22] MEDS ORDERED: AZITHROMYCIN 500 MG in DEXTROSE 5% 250 ML IV STA (06:26)
--- NOTE | 2022-06-22 07:17 | History & Physical Report ---
Date of Service June 22, 2022 Assessment & Plan (1) Cough with hemoptysis: Plan: 76yo female with history of atrial fibrillation on eliquis anticoagulation presents from home after having a coughing fit resulting in several tablespoons of bright red hemoptysis. CTA with pleural based mass ?infection vs mass? -Admit to medical -Hold Apixaban -Supplemental O2 as needed -Check Procalcitonin -Empiric Ceftriaxone and Azithromycin for possible PNA -Pulmonary consultation appreciated re: possible bronchoscopy -Will keep patient NPO for now in event of procedure (2) Lung mass: Plan: Found to have lung mass as above. Dense consolidation vs malignancy -Empiric antibiotics -Pulmonary consultation (3) Atrial fibrillation: Plan: Rate controlled. On Eliquis anticoagulation -Hold Eliquis in setting of hemoptysis -Continue Metoprolol (4) Diabetes mellitus: Plan: Diet controlled. Last [id number]=9.2 in 12/2020 -Monitor (5) Hyperlipidemia: Plan: Chronic -Continue Atorvastatin (6) Hypertension: Plan: Elevated blood pressure -Continue Metoprolol, Lisinopril, HCTZ -Continue to monitor F/E/N - Heplock. Electrolytes WNL. NPO for now Ppx - SCDs Code - Full Dispo - Admit to medical History of Present Illness Chief Complaint: hemoptysis Primary Care Provider: Enriqueta Harry MD Viridiana Thomson is a pleasant 76yo female with history of atrial fibrillation on Apixaban anticoagulation, DM, HTN, HLP presenting with hemoptysis. Patient has not been feeling well for the last several weeks - fatigued. She and her daughters got a viral illness while at [facility] (sore throat, RDZ, body aches). Her daughters improved over several days but patient remained fatigued. She was in bed last night when she had a "coughing fit" and coughed up several tablespoons of bright red blood. She reports feeling heaviness in her chest. No fever, chills, sweats, purulent sputum, palpitations, abdominal pain, nausea, vomiting, diarrhea or constipation. No additional complaints at this time In the ER she is afebrile, HD stable, no respiratory distress. ER Course: Albuterol 3mL, Metoprolol 5mg IV, Ceftriaxone 2gm IV Allergies Allergy/AdvReac Type Severity Reaction Status Date / Time aspirin Allergy Unknown RED RASH Verified 01/04/22 10:26 diphenhydramine Allergy RED RASH Verified 01/04/22 10:26 Home Medications Medication Instructions Recorded Confirmed Type latanoprost 0.005 % eye drops 1 drp ophthalmic (eye) UD 01/16/21 05/25/21 History lisinopril 20 mg tablet 20 mg PO DAILY 01/16/21 01/04/22 History metoprolol succinate 25 mg 25 mg PO DAILY 01/16/21 01/04/22 History tablet,extended release 24 hr multivitamin 1 tab PO DAILY 01/16/21 01/04/22 History apixaban 5 mg tablet (Eliquis) 5 mg PO BID #60 tabs 01/18/21 01/04/22 Rx atorvastatin 20 mg tablet (Lipitor) 20 mg PO DAILY #30 tabs 01/18/21 01/04/22 Rx hydrocortisone 2.5 % topical cream 1 applic [place] Q6H PRN hemorrhoids 01/18/21 Rx with perineal applicator #30 grams (Anusol-HC) hydrochlorothiazide 25 mg tablet 25 mg PO DAILY 05/25/21 01/04/22 History Past Med/Surg History Medical History (Updated 06/22/22 @ 07:10 by Rachel Johnson DO) Atrial fibrillation Diabetes mellitus Hyperlipidemia Hypertension Hypokalemia Surgical History No pertinent past surgical history Social History Smoking Status: Never smoker Hx Alcohol Use: No Hx Substance Use: No Preferred Language: German Communication Ability: Effective Senior Scientist Required: No Beliefs That Will Affect Care: None Current Living Situation: Alone Feels Safe at Home: Yes Assistive Devices: Glasses and Walker Review of Systems Review of Systems: All systems reviewed & are unremarkable except as noted in HPI & below Physical Exam Physical Exam: General: patient resting comfortably, NAD, non-toxic in appearance, AA&O x 4 Skin: warm, dry, intact, no rashes or lesions HEENT: NC/AT, PERRL, EOMI, anicteric sclera, conjunctiva without injection, external ear normal to inspection and nontender, nares patent, moist mucus membranes, dentition intact, no oropharyngeal lesions, neck supple, trachea midline, no LAD, no thyromegaly, no JVD Heart: +S1/S2, regular, no m/r/g Lungs: equal air entry bilaterally, no rales/rhonchi/wheezes Abd: +BS, soft, NT/ND, no masses/organomegaly/ascites Ext: warm, 2+ pulses in UE/LE bilaterally, no clubbing/cyanosis or edema Neuro: nonfocal, patient AA&O x 4, speech intact, no facial droop, moving all extremities on command with equal strength 5/5 Results & Data Results & Data ([facility]) Vital Signs (Past 12 Hours) Vital Signs Temp Pulse Pulse Resp BP BP Pulse Ox 06/22/22 06:39 76 18 174/95 H 96 06/22/22 05:45 77 18 155/97 H 94 06/22/22 03:45 185/95 H 06/22/22 03:35 81 18 195/112 H 96 06/22/22 03:10 84 18 100 06/22/22 03:09 82 199/138 H 06/22/22 02:59 85 18 199/138 H 97 06/22/22 02:22 36.5 C 99 H 20 188/111 H 96 O2 Del Method 06/22/22 06:39 Room Air 06/22/22 05:45 Room Air 06/22/22 03:45 06/22/22 03:35 Room Air 06/22/22 03:10 Room Air 06/22/22 03:09 06/22/22 02:59 Room Air 06/22/22 02:22 Room Air Laboratory Results Laboratory Results WBC 6.30 K/ul (4.8-10.8) 06/22/22 02:56 RBC 4.31 M/uL (3.93-5.22) 06/22/22 02:56 Hgb 12.6 g/dl (12.0-16.0) 06/22/22 02:56 Hct 38.3 % (34.1-44.9) 06/22/22 02:56 MCV 88.9 fL (80.0-100.0) 06/22/22 02:56 MCH 29.2 pg (25.0-34.0) 06/22/22 02:56 MCHC 32.9 g/dL (32.0-36.0) 06/22/22 02:56 RDW Std Deviation 45.5 fL (36.4-46.3) 06/22/22 02:56 RDW Coeff of Nikkie 14.1 % (11.5-14.5) 06/22/22 02:56 Plt Count 192 K/uL (130-400) 06/22/22 02:56 MPV 10.5 fL (9.4-12.3) 06/22/22 02:56 Immature Gran % (Auto) 0.2 % 06/22/22 02:56 Neut % (Auto) 61.6 % 06/22/22 02:56 Lymph % (Auto) 23.8 % 06/22/22 02:56 [place] % (Auto) 11.7 % 06/22/22 02:56 Eos % (Auto) 2.2 % 06/22/22 02:56 Baso % (Auto) 0.5 % 06/22/22 02:56 Neut # (Auto) 3.88 K/uL (1.4-6.5) 06/22/22 02:56 Lymph # (Auto) 1.50 K/uL (1.2-3.4) 06/22/22 02:56 [place] # (Auto) 0.74 K/uL (0.24-0.82) 06/22/22 02:56 Eos # (Auto) 0.14 K/uL (0-0.50) 06/22/22 02:56 Baso # (Auto) 0.03 K/uL (0-0.2) 06/22/22 02:56 Immature Gran # (Auto) 0.01 K/uL (0.00-0.02) 06/22/22 02:56 Sodium 142 mmol/L (136-145) 06/22/22 02:56 Potassium 3.8 mmol/L (3.5-5.1) 06/22/22 02:56 Chloride 110 mmol/L (98-107) H 06/22/22 02:56 Carbon Dioxide 26 mmol/L (21-32) 06/22/22 02:56 Anion Gap 6 (3-11) 06/22/22 02:56 BUN 14 mg/dl (6-23) 06/22/22 02:56 Creatinine 0.98 mg/dl (0.6-1.2) 06/22/22 02:56 Est Cr Clr Drug Dosing Not Reportable 06/22/22 02:56 Est GFR ( Amer) 64.5 ml/min 06/22/22 02:56 Est GFR (Non-Af Amer) 55.6 ml/min 06/22/22 02:56 BUN/Creatinine Ratio 14.3 (10-20) 06/22/22 02:56 Glucose 105 mg/dl (70-99(Fasting)) H 06/22/22 02:56 Calcium 9.3 mg/dl (8.5-10.1) 06/22/22 02:56 Total Bilirubin 0.6 mg/dl (0.2-1.0) 06/22/22 02:56 AST 15 U/L (13-39) 06/22/22 02:56 ALT 13 U/L (7-52) 06/22/22 02:56 Alkaline Phosphatase 47 U/L (34-104) 06/22/22 02:56 Troponin I High Sens 7.4 pg/ml (0-14) 06/22/22 05:25 Total Protein 6.7 gm/dl (6.0-8.3) 06/22/22 02:56 Albumin 4.0 gm/dl (3.4-5.0) 06/22/22 02:56 Globulin 2.7 gm/dl (2.5-4.0) 06/22/22 02:56 Albumin/Globulin Ratio 1.5 (0.9-2) 06/22/22 02:56 Adenovirus (PCR) Not Detected (NotDetected) 06/22/22 03:11 B. pertussis DNA (PCR) Not Detected (NotDetected) 06/22/22 03:11 B.parapertussis DNA PCR Not Detected (NotDetected) 06/22/22 03:11 C. pneumoniae DNA (PCR) Not Detected (NotDetected) 06/22/22 03:11 Coronavirus OC43 (PCR) Not Detected (NotDetected) 06/22/22 03:11 Coronavirus HKU1 (PCR) Not Detected (NotDetected) 06/22/22 03:11 Coronavirus 229E (PCR) Not Detected (NotDetected) 06/22/22 03:11 SARS-CoV-2 (PCR) Not Detected (NotDetected) 06/22/22 03:11 Coronavirus NL63 (PCR) Not Detected (NotDetected) 06/22/22 03:11 Human Metapneumovir PCR Not Detected (NotDetected) 06/22/22 03:11 Influenza Type A (PCR) Not Detected (NotDetected) 06/22/22 03:11 Influenza Type B (PCR) Not Detected (NotDetected) 06/22/22 03:11 M. pneumoniae (PCR) Not Detected (NotDetected) 06/22/22 03:11 Parainfluenza 1 (PCR) Not Detected (NotDetected) 06/22/22 03:11 Parainfluenza 2 (PCR) Not Detected (NotDetected) 06/22/22 03:11 Parainfluenza 3 (PCR) Not Detected (NotDetected) 06/22/22 03:11 Parainfluenza 4 (PCR) Not Detected (NotDetected) 06/22/22 03:11 RSV (PCR) Not Detected (NotDetected) 06/22/22 03:11 Entero/Rhino (PCR) Not Detected (NotDetected) 06/22/22 03:11 Diagnostic Findings CTA Chest - Per STAT rad - negative for PE. Complex mediastinal pleural-based opacity at the right lung base contains punctate calcifications and measures up to 2.5 x 2.6cm. Differential would include rounded atelectasis, dense consolidation or malignancy. Definitive evaluation is recommended. Code Status & VTE Plan VTE Prophylaxis Plan VTE Prophylaxis will be ordered: Yes PG Care Time/CCT Total # of Minutes Spent Total Time Spent with Patient: Total time spent is greater than 50% in coordination of care (as documented) at patient's floor/unit and/or counseling patient: Coding Level of Care Code 49554 Initial Inpt Care Lvl 2 Diagnoses Cough with hemoptysis R04.2 Lung mass R91.8 Atrial fibrillation I48.91 Diabetes mellitus E11.9 Hyperlipidemia E78.5 Hypertension I10
[2022-06-22] MEDS ORDERED: ONDANSETRON INJ 2 MG/ML 2 ML VIAL IV PRN (08:13)
[2022-06-22] MEDS ORDERED: guaiFENesin/CODEINE 100MG/10MG 5ML UDC PO PRN (08:13)
[2022-06-22] MEDS ORDERED: ACETAMINOPHEN 325 MG TAB PO PRN (08:13)
--- NOTE | 2022-06-22 08:28 | Pulmonary Consultation ---
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, right middle lobe small cysts There is a right lower lobe infiltrate with tree-in-bud opacities inferior posterior to it Cardiomegaly No significant mediastinal lymphadenopathy -- Hemoptysis Multifactorial Possibility of infection as well as being on Eliquis Continue with [id number] antitussive medication for the time being -- Right lower lobe nodularity Right lower lobe nodularity with tree-in-bud opacities Patient does have upper respite tract infection for approximately a month Possibility of it being infection is there I will treat with antibiotics for at least [address] chest to be done in 6 weeks to see if there is any impr ovement in the nodularity/infiltrate. If there is no improvement then the neck step would be navigational bronchoscopy. -- Ex-smoker Only 8-pack-year smoking history Quit at the age of 35 Plan: Continue to hold anticoagulation Antitussive medication [id number] Would recommend CT chest to be done in 6 weeks to see if there is any improvement in the nodularity/infiltrate. If there is no improvement then the neck step would be navigational bronchosco py. All questions inquiries of the patient as well as patient's daughter were answered in depth Please note the above document was generated using voice recognition software. It may contain grammatical, syntax or spelling errors.Any formal questions or concerns about the content, text or information contained within the body of this dictation should be directly addressed to the provider for clarification. History of Present Illness Attending Physician: Rachel Johnson DO History of Present Illness 76-year-old female presented to hospital with complaints of coughing and hemoptysis Past medical history: Hypertension, A. fib on Eliquis, dyslipidemia Patient is CT chest done which showed right lower lobe opacity and infiltrate. Pulmonary were consulted for same At the time of examination patient's daughter was also in the room Patient states that she has been having issues with upper respiratory infection and coughing which has been going on for more than a month since she visited [facility] Most of the time she had dry cough but yesterday she had fit of cough which ended up with bringing up blood bright red in color. Denies any chest pain at that time. No fever or chills No dysuria, diarrhea No nausea or vomiting. No headache, no blurry vision. No family history of lung cancer. Social history: Only 8-pack-year smoking history quit at the age of 35 Allergies Allergy/AdvReac Type Severity Reaction Status Date / Time aspirin Allergy Unknown RED RASH Verified 01/04/22 10:26 diphenhydramine Allergy RED RASH Verified 01/04/22 10:26 Home Medications Medication Instructions Recorded Confirmed Type latanoprost 0.005 % eye drops 1 drp ophthalmic (eye) UD 01/16/21 05/25/21 History lisinopril 20 mg tablet 20 mg PO DAILY 01/16/21 01/04/22 History metoprolol succinate 25 mg 25 mg PO DAILY 01/16/21 01/04/22 History tablet,extended release 24 hr multivitamin 1 tab PO DAILY 01/16/21 01/04/22 History apixaban 5 mg tablet (Eliquis) 5 mg PO BID #60 tabs 01/18/21 01/04/22 Rx atorvastatin 20 mg tablet (Lipitor) 20 mg PO DAILY #30 tabs 01/18/21 01/04/22 Rx hydrocortisone 2.5 % topical cream 1 applic TN Q6H PRN hemorrhoids 01/18/21 Rx with perineal applicator #30 grams (Anusol-HC) hydrochlorothiazide 25 mg tablet 25 mg PO DAILY 05/25/21 01/04/22 History Patient History Medical History (Updated 06/22/22 @ 14:10 by Fauzia Ryan MD, [facility]) Atrial fibrillation Diabetes mellitus Hyperlipidemia Hypertension Hypokalemia Surgical History No pertinent past surgical history Social History Smoking Status: Never smoker Hx Alcohol Use: No Hx Substance Use: No Preferred Language: Lithuanian Communication Ability: Effective Machine Maintenance Required: No Beliefs That Will Affect Care: None Current Living Situation: Alone Feels Safe at Home: Yes Assistive Devices: Glasses and Walker Review of Systems Review of Systems: All systems reviewed & are unremarkable except as noted in HPI & below Physical Exam Physical Exam: Constitutional: No acute distress HEENT: EOMI, PERRLA Respiratory system: Good air entry bilaterally, no wheeze, no rhonchi, no crackles CVS: S1-S2 positive, no murmurs or gallops Abdomen: Soft, nontender, nondistended, positive bowel sounds x4 Extremities: +2 pulses bilaterally radialis/ dorsalis pedis, no cyanosis, +2 pitting edema bilateral lower extremity Neuro: Awake alert oriented x3 Psych: Normal mood and affect G/U: No Ross Results & Data Results & Data ([facility]) Vital Signs (Past 12 Hours) Vital Signs Temp Pulse Pulse Resp BP BP Pulse Ox 06/22/22 06:39 76 18 174/95 H 96 06/22/22 05:45 77 18 155/97 H 94 06/22/22 03:45 185/95 H 06/22/22 03:35 81 18 195/112 H 96 06/22/22 03:10 84 18 100 06/22/22 03:09 82 199/138 H 06/22/22 02:59 85 18 199/138 H 97 06/22/22 02:22 36.5 C 99 H 20 188/111 H 96 O2 Del Method 06/22/22 06:39 Room Air 06/22/22 05:45 Room Air 06/22/22 03:45 06/22/22 03:35 Room Air 06/22/22 03:10 Room Air 06/22/22 03:09 06/22/22 02:59 Room Air 06/22/22 02:22 Room Air Laboratory Results 06/22/22 02:56 06/22/22 02:56 PG Care Time/CCT Total # of Minutes Spent Total Time Spent with Patient: Total time spent is greater than 50% in coordination of care (as documented) at patient's floor/unit and/or counseling patient: Coding Level of Care Code 88156 Initial Inpt Care Lvl 3 Diagnoses Cough with hemoptysis R04.[address] R93.89 Ex-smoker Z87.891
--- NOTE | 2022-06-22 08:47 | CT Scan Report ---
CT angio chest PE protocol CT DOSE: 1581.13 mGy.cm HISTORY: 76 years-old Female with Dyspnea, hemoptysis. Acute cough with shortness of breath TECHNIQUE: Multiple CTA images of the chest were obtained after the intravenous administration of 113 ml Optiray. Coronal and sagittal MIPS were obtained from the axial data set and were submitted for review. All measurements were obtained according to NASCET criteria. A dose lowering technique was u tilized adhering to the principles of ALARA. COMPARISON: Chest radiograph of same day and also 01/16/2021 FINDINGS: CTA: Marked cardiomegaly. No pericardial effusion. Moderate coronary artery calcifications. Atherosclerosi s of the thoracic aorta without aneurysm or dissection. There is patency of the imaged great vessels with less than 50% stenosis of the proximal left subclavian artery. Dilated pulmonary artery suggesti ve of pulmonary arterial hypertension. The main pulmonary artery measures 3.2 cm transversely. No pul monary emboli are identified. CT CHEST: No thyroid nodule identified. Borderline-enlarged subcentimeter mediastinal and hilar lymph nodes are favored to be physiologic measuring up to 9 mm. No pneumothorax. Mild intralobular septal and bronchial wall thickening. There is an irregular subple ural consolidative opacity involving the right lower lobe on image 98 series 7 measuring 3.5 x 3.0 x 3.3 cm opacifying an adjacent right lower lobe bronchus. This contains irregular central hyperattenua tion with surrounding groundglass opacities. Additionally, there are a few scattered subtle subcentim eter groundglass nodular opacities within a multilobar distribution throughout the right lung. Mild m osaic attenuation with bilateral air trapping. Central airways are otherwise patent. Tiny hiatal hernia. No acute process of the imaged upper abdomen. Unremarkable soft tissues. Degenera tive changes of the shoulders and spine. No acute fracture identified. IMPRESSION: 1. Cardiomegaly with suggested pulmonary arterial hypertension. No pulmonary emboli are identified. 2. Subpleural nodular masslike area of consolidation within the right lower lobe measures up to 3.5 c m containing irregular central calcifications. This opacifies adjacent bronchi. Surrounding ground gl ass/consolidative opacities are suggestive of pneumonia/postobstructive pneumonitis. Follow-up is nee ded to exclude primary bronchogenic malignancy. Alternatively, pulmonology consultation with bronchos copy and tissue sampling may be considered. 3. Scattered nodular subcentimeter groundglass opacities throughout the right lung are favored to be infectious or inflammatory. Attention at follow-up recommended. 4. Bronchitis versus reactive airway disease with atelectasis and air trapping. 5. Borderline enlarged mediastinal and hilar lymph nodes. ACT 112: Negative or not required by law. The above report was generated using voice recognition software. It may contain grammatical, syntax o r spelling errors. Electronically signed by: Jaun Guzman M.D. 06/22/2022 8:46 AM
--- NOTE | 2022-06-22 10:05 | XRay Report ---
SINGLE VIEW CHEST CLINICAL HISTORY: Dyspnea. FINDINGS: An AP, portable, upright chest radiograph is compared to study dated 01/16/2021. The heart i s enlarged noting atherosclerotic calcification of the thoracic aorta. The pulmonary vasculature is n oncongested. Chronic interstitial thickening is similar to previous. There is bibasilar scarring/atel ectasis. No airspace consolidation or large pleural effusion is identified. No pneumothorax is seen. The skeletal structures are osteopenic. The bony thorax is grossly intact. IMPRESSION: Cardiomegaly with no acute cardiopulmonary abnormality identified. ACT 112: Negative or not required by law. Electronically signed by: Trung Abdalla M.D. 06/22/2022 10:04 AM
[2022-06-22] MEDS: Patient's HEIGHT &/or WEIGHT Needed SCH ×2 (10:47→15:33)
[2022-06-22] MEDS: ATORVASTATIN 20 MG TAB PO SCH (11:20)
[2022-06-22] MEDS: METOPROLOL SUCC 25MG EXT REL TAB PO SCH (11:20)
[2022-06-22] MEDS: lisinopril 20 MG TAB PO SCH (11:21)
[2022-06-22] MEDS: hydroCHLOROthiazide 25 MG TAB PO SCH (11:21)
--- NOTE | 2022-06-22 12:17 | Electrocardiogram Report ---
Test Reason : Blood Pressure : / mmHG Vent. Rate : 080 BPM Atrial Rate : 085 BPM P-R Int : 000 ms QRS Dur : 096 ms QT Int : 400 ms P-R-T Axes : 000 020 -46 degrees QTc Int : 461 ms Atrial fibrillation with premature ventricular or aberrantly conducted complexes Nonspecific T wave abnormality Abnormal ECG When compared with ECG of 16-JAN-2021 21:28, No significant change Confirmed by Sai Nelson ([id number]) on 06/22/2022 12:17:21 PM Referred By: REFERRED SELF Confirmed By:Sai Nelson
[2022-06-22] MEDS: guaiFENesin/DEXTROM SYRUP 200MG/20MG 10ML UDC PO SCH ×2 (13:58→21:37)
--- NOTE | 2022-06-22 17:37 | History & Physical Bridge Note ---
Date of Service June 22, 2022 History & Physical Bridge Note Seen in afternoon. Doing fairly well. Still comfortable on room air. Will hold anticoagulation, continue abx, and monitor.
[2022-06-22] MEDS: LATANOPROST 0.005% OP SOLN 2.5 ML BTL OP SCH (21:36)
[2022-06-23] MEDS: guaiFENesin/DEXTROM SYRUP 200MG/20MG 10ML UDC PO SCH ×3 (06:10→22:16)
[2022-06-23 06:44] LABS: Hemoglobin 12.8 g/dl (12.0-16.0); Mean Corpuscular Hemoglobin 29.4 pg (25.0-34.0); Mean Corpuscular Hgb Conc 33.7 g/dL (32.0-36.0); Mean Corpuscular Volume 87.2 fL (80.0-100.0); Mean Platelet Volume 10.9 fL (9.4-12.3); Platelet Count 177 K/uL (130-400); RDW Coefficient of Variation 14.1 % (11.5-14.5); RDW Standard Deviation 44.3 fL (36.4-46.3); Red Blood Count 4.36 M/uL (3.93-5.22)
[2022-06-23 07:03] LABS: BUN Creatinine Ratio 13.3 (10-20); Creatinine Clr Calc Pharmacy 56.1 ml/min; Est GFR (African American) 71.5 ml/min; Est GFR (Non-African American) 61.7 ml/min; Potassium 3.5 mmol/L (3.5-5.1)
[2022-06-23] MEDS: ATORVASTATIN 20 MG TAB PO SCH (09:57)
[2022-06-23] MEDS: lisinopril 20 MG TAB PO SCH (09:57)
[2022-06-23] MEDS: hydroCHLOROthiazide 25 MG TAB PO SCH (09:57)
[2022-06-23] MEDS: AZITHROMYCIN 250 MG TAB PO SCH (09:57)
[2022-06-23] MEDS: METOPROLOL SUCC 25MG EXT REL TAB PO SCH (09:57)
[2022-06-23] MEDS: cefTRIAXone SODIUM 2,000 MG in DEXTROSE 5% 50 ML IV SCH (09:58)
--- NOTE | 2022-06-23 12:22 | Pulmonology Progress Note ---
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, right middle lobe small cysts There is a right lower lobe infiltrate with tree-in-bud opacities inferior posterior to it Cardiomegaly No significant mediastinal lymphadenopathy -- Hemoptysis --> Improving Multifactorial Possibility of infection as well as being on Eliquis Continue with [id number] antitussive medication for the time being -- Right lower lobe nodularity Right lower lobe nodularity with tree-in-bud opacities Patient does have upper respite tract infection for approximately a month Possibility of it being infection is there Treat with antibiotics for at least [address] chest to be done in 6 weeks to see if there is any improvement in the nodularity/infiltrate. If there is no improvement then the neck step would be navigational bronchoscopy. -- Ex-smoker Only 8-pack-year smoking history Quit at the age of 35 Plan: Continue to hold anticoagulation Antitussive medication [id number] Please note the above document was generated using voice recognition software. It may contain grammatical, syntax or spelling errors.Any formal questions or concerns about the content, text or information contained within the body of this dictation should be directly addressed to the provider for clarification. Admission and Anticipated Discharge Date Admission Date: June 22, 2022 Subjective Patient seen and examined at bedside. No acute distress, no adverse events overnight She still is coughing but no bright red blood in the phlegm. Cough has decreased in intensity Denies any chest pain, no headache, no nausea, no vomiting Denies any abdominal pain Fair appetite Review of Systems Review of Systems: All systems reviewed & are unremarkable except as noted in Subjective Physical Exam Physical Exam: Constitutional: No acute distress HEENT: EOMI, PERRLA Respiratory system: Good air entry bilaterally, no wheeze, no rhonchi, no crackles CVS: S1-S2 positive, no murmurs or gallops Abdomen: Soft, nontender, nondistended, positive bowel sounds x4 Extremities: +2 pulses bilaterally radialis/ dorsalis pedis, no cyanosis, +2 pitting edema bilateral lower extremity Neuro: Awake alert oriented x3 Psych: Normal mood and affect G/U: No Rsos Skin: no rashes, warm and dry Lymphatic: no cervical or axillary lymphadenopathy Results & Data Results & Data ([facility]) Vital Signs (Past 12 Hours) Vital Signs Temp Pulse Resp BP Pulse Ox O2 Del Method 06/23/22 09:30 Room Air 06/23/22 08:50 37 C 82 18 157/77 H 95 Room Air Laboratory Results 06/23/22 05:58 06/23/22 05:58 PG Care Time/CCT Total # of Minutes Spent Total Time Spent with Patient: Total time spent is greater than 50% in coordination of care (as documented) at patient's floor/unit and/or counseling patient: Coding Level of Care Code 26059 Subseq Hosp Care Lvl 2 Diagnoses Cough with hemoptysis R04.[address] R93.89 Ex-smoker Z87.891
--- NOTE | 2022-06-23 16:45 | Hospitalist Progress Note ---
Date of Service June 23, 2022 Assessment & Plan (1) Cough with hemoptysis: Plan: 76yo female with history of atrial fibrillation on eliquis anticoagulation presents from home after having a coughing fit resulting in several tablespoons of bright red hemoptysis. CTA with pleural based mass ?infection vs mass? -Coughin up dark colored sputum today, but no bright red blood - CT chest shows a qustionable density -Pulmonology on consul-Plan is to repeat CT chest in 6 weeks -Continue Oral antibiotics for now for a total of 5 days -Hold Apixaban -Supplemental O2 as needed (2) Lung mass: Plan: Found to have lung mass as above. Dense consolidation vs malignancy -Empiric antibiotics -Repeat CT scan in 6 weeks -If persistent, will then get Bronchoscopy per Pulmonology (3) Atrial fibrillation: Plan: Rate controlled. On Eliquis anticoagulation -Hold Eliquis in setting of hemoptysis -Continue Metoprolol (4) Diabetes mellitus: Plan: Diet controlled. Last EseN1C=4.2 in 12/2020 -Monitor (5) Hyperlipidemia: Plan: Chronic -Continue Atorvastatin (6) Hypertension: Plan: Elevated blood pressure -Continue Metoprolol, Lisinopril, HCTZ -Continue to monitor F/E/N - Heplock. Electrolytes WNL. Ppx - SCDs Code - Full Plan hopefully d/c tomorrow Admission and Anticipated Discharge Date Admission Date: June 22, 2022 Subjective patient seen and examined, coughing up dark colored sputum, but no bright red blood Review of Systems Review of Systems: All systems reviewed are negative, apart from the ones contained in the history. Physical Exam Physical Exam: The patient is awake, alert and oriented 3, well developed and well nourished, normocephalic and atraumatic, lying in bed and in no acute distress. HEENT--PERRL, EOMI, mucous membranes and oropharynx mildly dry Neck--supple. No JVD. No bruits. Thyroid normal, trachea midline, no adenopathy. Heart--normal S1 and S2. No murmurs, rubs or gallops. Lungs--clear bilaterally, no respiratory distress, no accessory muscle use. Abdomen--normal bowel sounds and soft. Mild epigastric and left sided abdominal pain Extremities--no cyanosis or clubbing. No edema. Dermatologic--normal skin turgor, normal color, no abnormal lymph nodes, no rash. Neurologic--cranial nerves II through XII grossly intact. Rheumatologic--normal range of motion. Psychiatric--normal affect. Results & Data Results & Data ([facility]) Vital Signs (Past 12 Hours) Vital Signs Temp Pulse Resp BP Pulse Ox O2 Del Method 06/23/22 16:31 97.9 F 84 17 132/80 94 Room Air 06/23/22 09:30 Room Air 06/23/22 08:50 98.6 F 82 18 157/77 H 95 Room Air PG Care Time/CCT Total # of Minutes Spent Total Time Spent with Patient: Total time spent is greater than 50% in coordination of care (as documented) at patient's floor/unit and/or counseling patient: Coding Level of Care Code 17944 Subseq Hosp Care Lvl 2 Diagnoses Cough with hemoptysis R04.2 Lung mass R91.8 Atrial fibrillation I48.91 Diabetes mellitus E11.9 Hyperlipidemia E78.5 Hypertension I10 Time Spent (min) 35
[2022-06-23] MEDS: LATANOPROST 0.005% OP SOLN 2.5 ML BTL OP SCH (22:16)
[2022-06-24] MEDS: guaiFENesin/DEXTROM SYRUP 200MG/20MG 10ML UDC PO SCH (06:16)
[2022-06-24 06:43] VITALS: PULSE 84; TEMP 98.2; O2SAT 95
[2022-06-24] MEDS: METOPROLOL SUCC 25MG EXT REL TAB PO SCH (08:57)
[2022-06-24] MEDS: ATORVASTATIN 20 MG TAB PO SCH (08:57)
[2022-06-24] MEDS: AZITHROMYCIN 250 MG TAB PO SCH (08:57)
[2022-06-24] MEDS: hydroCHLOROthiazide 25 MG TAB PO SCH (08:57)
[2022-06-24] MEDS: lisinopril 20 MG TAB PO SCH (08:58)
[2022-06-24] MEDS: cefTRIAXone SODIUM 2,000 MG in DEXTROSE 5% 50 ML IV SCH (08:58)
--- NOTE | 2022-06-24 09:16 | Pulmonology Progress Note ---
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, right middle lobe small cysts There is a right lower lobe infiltrate with tree-in-bud opacities inferior posterior to it Cardiomegaly No significant mediastinal lymphadenopathy -- Hemoptysis --> Improving Multifactorial Possibility of infection as well as being on Eliquis Continue with [id number] antitussive medication for the time being -- Right lower lobe nodularity Right lower lobe nodularity with tree-in-bud opacities Patient does have upper respite tract infection for approximately a month Possibility of it being infection is there Treat with antibiotics for at least [address] chest to be done in 6 weeks to see if there is any improvement in the nodularity/infiltrate. If there is no improvement then the next step would be navigational bronchoscopy. -- Ex-smoker Only 8-pack-year smoking history Quit at the age of 35 Plan: Chest x-ray from today does not show any infiltrate. CT chest in 6 weeks with outpatient follow-up Continue with antitussive medication at home for 2-3 days Consider resuming oral anticoagulation as well within the next 24 hours No further recommendation from pulmonary perspective. We will sign off, please call directly with any questions Please note the above document was generated using voice recognition software. It may contain grammatical, syntax or spelling errors.Any formal questions or concerns about the content, text or information contained within the body of this dictation should be directly addressed to the provider for clarification. Admission and Anticipated Discharge Date Admission Date: June 22, 2022 Subjective Patient seen and examined at bedside. No acute distress, no adverse events overnight. Normal hemoptysis Saturating well on room air No chest pain, no headache, no nausea, no vomiting. No fever or chills. Review of Systems 2 Review of Systems: All systems reviewed & are unremarkable except as noted in Subjective Physical Exam Physical Exam: Constitutional: No acute distress HEENT: EOMI, PERRLA Respiratory system: Good air entry bilaterally, no wheeze, no rhonchi, no crackles CVS: S1-S2 positive, no murmurs or gallops Abdomen: Soft, nontender, nondistended, positive bowel sounds x4 Extremities: +2 pulses bilaterally radialis/ dorsalis pedis, no cyanosis, +2 pitting edema bilateral lower extremity Neuro: Awake alert oriented x3 Psych: Normal mood and affect G/U: No Ross Skin: no rashes, warm and dry Lymphatic: no cervical or axillary lymphadenopathy Results & Data Results & Data ([facility]) Vital Signs (Past 12 Hours) Vital Signs Temp Pulse Resp BP BP Pulse Ox O2 Del Method 06/24/22 06:42 36.8 C 84 18 111/67 95 Room Air 06/23/22 22:41 36.6 C 85 18 145/74 H 94 Room Air Laboratory Results 06/23/22 05:58 06/23/22 05:58 PG Care Time/CCT Total # of Minutes Spent Total Time Spent with Patient: Total time spent is greater than 50% in coordination of care (as documented) at patient's floor/unit and/or counseling patient: Coding Level of Care Code 91928 Subseq Hosp Care Lvl 2 Diagnoses Cough with hemoptysis R04.[address] R93.89 Ex-smoker Z87.891
[2022-06-24 10:33] VITALS: BP 145/74
--- NOTE | 2022-06-24 11:12 | XRay Report ---
XR chest 1V portable CLINICAL HISTORY: f/u COMPARISON STUDY: Chest radiograph and chest CT June 22, 2022. FINDINGS: No pneumothorax or pleural effusion is present. Cardiomegaly is unchanged. No evidence for pulmonary edema. Skinfold projects over the right chest. Right infrahilar consolidation shown on CT i s not well depicted by radiography. IMPRESSION: 1. Right infrahilar consolidation shown on CT not well visualized radiography. 2. Cardiomegaly. No evidence for pulmonary edema. ACT 112: Negative or not required by law. Electronically signed by: Jaren Burgess M.D. 06/24/2022 11:11 AM
--- NOTE | 2022-06-24 14:06 | Discharge Summary ---
Date of Service June 24, 2022 Admission HPI Per Admitting Provider Viridiana Thomson is a pleasant 76yo female with history of atrial fibrillation on Apixaban anticoagulation, DM, HTN, HLP presenting with hemoptysis. Patient has not been feeling well for the last several weeks - fatigued. She and her daughters got a viral illness while at [facility] (sore throat, RDZ, body aches). Her daughters improved over several days but patient remained fatigued. She was in bed last night when she had a "coughing fit" and coughed up several tablespoons of bright red blood. She reports feeling heaviness in her chest. No fever, chills, sweats, purulent sputum, palpitations, abdominal pain, nausea, vomiting, diarrhea or constipation. No additional complaints at this time In the ER she is afebrile, HD stable, no respiratory distress. ER Course: Albuterol 3mL, Metoprolol 5mg IV, Ceftriaxone 2gm IV Principal Diagnosis Hemoptysis Discharge Exam The patient is awake, alert and oriented 3, well developed and well nourished, normocephalic and atraumatic, lying in bed and in no acute distress. HEENT--PERRL, EOMI, mucous membranes and oropharynx mildly dry Neck--supple. No JVD. No bruits. Thyroid normal, trachea midline, no adenopathy. Heart--normal S1 and S2. No murmurs, rubs or gallops. Lungs--clear bilaterally, no respiratory distress, no accessory muscle use. Abdomen--normal bowel sounds and soft. Mild epigastric and left sided abdominal pain Extremities--no cyanosis or clubbing. No edema. Dermatologic--normal skin turgor, normal color, no abnormal lymph nodes, no rash. Neurologic--cranial nerves II through XII grossly intact. Rheumatologic--normal range of motion. Psychiatric--normal affect. Discharge Data Allergies Allergy/AdvReac Type Severity Reaction Status Date / Time aspirin Allergy Unknown RED RASH Verified 06/22/22 16:18 diphenhydramine Allergy RED RASH Verified 06/22/22 16:18 Consultations 06/22/22 06:28 ED Decision to Admit Stat 06/22/22 08:13 Consult Pulmonology Routine Ordered Studies 06/22/22 02:38 CT angio chest PE protocol Urgent Hospital Course (1) Cough with hemoptysis: 76yo female with history of atrial fibrillation on eliquis anticoagulation presents from home after having a coughing fit resulting in several tablespoons of bright red hemoptysis. CTA with pleural based mass ?infection vs mass? -no cough overnight - CT chest shows a questionable density -Pulmonology on consul-Plan is to repeat CT chest in 6 weeks -Continue Oral antibiotics for now for a total of 5 days -Hold Apixaban -Supplemental O2 as needed (2) Lung mass: Found to have lung mass as above. Dense consolidation vs malignancy -Empiric antibiotics -Repeat CT scan in 6 weeks -If persistent, will then get Bronchoscopy per Pulmonology (3) Atrial fibrillation: Rate controlled. On Eliquis anticoagulation -Hold Eliquis in setting of hemoptysis -Continue Metoprolol (4) Diabetes mellitus: Diet controlled. Last [id number]=6.2 in 12/2020 -Monitor (5) Hyperlipidemia: Chronic -Continue Atorvastatin (6) Hypertension: Elevated blood pressure -Continue Metoprolol, Lisinopril, HCTZ -Continue to monitor F/E/N - [place]. Electrolytes WNL. Ppx - SCDs Code - Full Plan hopefully d/c tomorrow Total Time Total Time Spent Total Time Spent (In Minutes): 35 Discharge Plan Discharge Items Patient Disposition: Home - Self-Care Reason For Visit: HEMOPTYSIS Discharge Diagnosis: hemoptysis Condition on Discharge: Good Activity: Resume your previous activity Non-emergency contact: Primary Care Provider and Records Assistant Call non-emergency contact if: you have any medication questions Follow-up/Referrals: Jb Gallagher MD [Physician] - 07/07/22 9:45 am Enriqueta Harry MD [Primary Care Provider] - Diet: Regular Addtl Attending Provider Instructions: please make appointment to follow up with your Records Assistant in 6 weeks for a repeat CT scan of the chest. Please dont take Eliquis until you see your [employer]. Make appointment [facility] to see your java lead Pending Studies at Discharge: No Stand-Alone Forms: My [employer], Smoking Cessation Medications and DC Order Prescriptions: New cefdinir 300 mg capsule 300 mg PO BID 5 Days Qty: 10 0RF Continued hydrochlorothiazide 25 mg tablet 25 mg PO DAILY lisinopril 20 mg tablet 20 mg PO DAILY metoprolol succinate 25 mg tablet extended release 24 hr 25 mg PO DAILY multivitamin Tablet 1 tab PO DAILY atorvastatin [Lipitor] 20 mg tablet 20 mg PO DAILY Qty: 30 5RF Probiotic 3 billion cell Capsule 0 mmu cells PO Q OTHER DAY Rx Instructions: administer with a meal Discontinued Eliquis 5 mg tablet 5 mg PO BID Qty: 60 5RF Discharge Orders: Discharge Order (Routine); Ordered 06/24/22 Ordered By: Lita Floyd Admission Data Admit Date/Time: 06/22/22 07:02 Attending Provider: Lita Floyd Admit Provider: Rachel Johnson Primary Care Provider: Enriqueta Harry Other Providers: Fauzia Ryan ; Rachel Johnson Other Interventions: Discharge Summary Assessment (RN) Last Done: 06/24/22 10:30 Coding Level of Care Code D/C DAY MANAGEMENT >30 MINS Diagnoses Cough with hemoptysis R04.2 Lung mass R91.8 Atrial fibrillation I48.91 Diabetes mellitus E11.9 Hyperlipidemia E78.5 Hypertension I10 Time Spent (min) 35
== END 2022-06-24 13:50 | disposition home or self-care (01) ==
LOC: ED 02:17 → SUATTDRO 07:02 → EDINP 07:02 → INTOOBSV 07:02 → 3E 08:01
DX: R04.2 Hemoptysis; Z79.899 Other long term (current) drug therapy; Z88.8 Allergy status to other drugs, medicaments and biological substances; I48.91 Unspecified atrial fibrillation; R91.8 Other nonspecific abnormal finding of lung field; Z79.01 Long term (current) use of anticoagulants; Z88.6 Allergy status to analgesic agent; I10 Essential (primary) hypertension; E78.5 Hyperlipidemia, unspecified; E11.9 Type 2 diabetes mellitus without complications

== ENCOUNTER 2024-04-18 11:41 | Inpatient (IN) ==
--- NOTE | 2024-04-18 12:10 | Emergency Department Note ---
Impression & Plan Fever, Infection of wound due to methicillin resistant Staphylococcus aureus (MRSA), COSMO (acute kidney injury), Allergic reaction, Cellulitis of forearm, right, Atrial fibrillation with rapid ventricular response ED Provider Note NAME: ODALYS PALMA AGE: 78 SEX: F : 1945 ARRIVES VIA: Walk-In INFORMANT: Patient ED PROVIDER(S): Aurelio Dias MD CHIEF COMPLAINT: Fever, referred. PLAN: Disposition: Admit MEDICAL DECISION MAKING: The patient is a pleasant 78-year-old woman with a past medical history of restrictive lung disease, hypertension hyperlipidemia, diabetes, atrial fibrillation on Eliquis, CKD, cardiomyopathy, TIA who presents to emergency department via walk-in, accompanied by her daughter referred by her PCP office for evaluation of fever in the setting of being managed outpatient for a wound infection of her right distal forearm which tested positive for MRSA per the daughter at the bedside. Patient had been treated with Bactrim for the past week. The patient's daughter reports the patient has been slightly confused from her baseline which does have a degree of mild cognitive impairment/dementia but this was worse. Additionally, she reports having poor appetite and poor oral intake over the past several days and last night began to have itching all over her body and noted that she had some mild swelling and redness of her face. This did improve somewhat with Benadryl. The patient had a fever of 39 at her PCP office today and they report that they were unaware of the patient being feverish or having fevers until they were assessed today in the office. They deny any cough, congestion. Denies any known tick bites or exposure risks. On evaluation patient is no distress, febrile to 37.7 with HR 120s and otherwise stable vital signs. She appears clinically dry. She has blanchable erythema of the face and scattered patches of blanchable erythema of her extremities, chest, abdomen. There is no oropharyngeal involvement. There is no desquamation. There is no vesicles/bullae. ~3cm superficial wound/ulceration of the radial- dorsal aspect of the distal right forearm with mild surrounding erythema and warmth. Mild induration. No underlying fluctuance or crepitus. Scant yellow crusting. EKG without overt acute ischemia. CXR negative for acute cardiopulmonary process per my personal preliminary review/interpretation. WBC, within normal limits without neutrophilia or left shift. H/H and platelets within normal limits. Creatinine 2.6 with BUN of 44 consistent with acute kidney injury in setting of report of poor oral intake over the past week. Lactic acid 1.6, within normal limits. LFTs unremarkable. High-sensitivity troponin 12.5, within normal limits. Procalcitonin is not elevated. Tryptase was ordered to help inform outpatient follow-up regarding possible drug reaction. UA is suspicious for infection with 1+ leuk esterase and WBCs albeit with epithelial cells and no bacteria. Respiratory BioFire was negative. Blood cultures were obtained and empiric treatment initiated with IV cefepime as well as daptomycin. Solu-Medrol administered for suspected allergic reaction to Bactrim. IVF hydration administered cautiously with initial 1L NSS plus maintenance and 30cc/kg deferred due to history of CHF/afib. Case was discussed with Dr. Estrada, [facility] hospitalist, who will evaluate the patient for admission. Further management per admitting team. Triage Nursing notes reviewed and agree them. Prior/external medical records reviewed Vital Signs: reviewed Differential diagnosis: Viral syndrome, otitis, pharyngitis, pneumonia, influenza, meningitis, urinary tract infection, sepsis, bacteremia, as well as other pathologies. ER treatment provided: See below. Diagnostics interpreted by me: ECG: Atrial fibrillation with RVR, 102 bpm, no ectopy, nonspecific ST and T wave abnormality, no overt ST ovation or depression, QTc 440, QRS 90. Cardiac Monitoring: An order for continuous cardiac monitoring was placed and demonstrated Atrial fibrillation with RVR, 102 bpm, no ectopy. Laboratory studies: See below Imaging studies: See below Consultation(s): Case was discussed with Dr. Estrada, [facility] hospitalist, who will evaluate the patient for admission. HPI: The patient is a pleasant 78-year-old woman with a past medical history of restrictive lung disease, hypertension hyperlipidemia, diabetes, atrial fibrillation on Eliquis, CKD, cardiomyopathy, TIA who presents to emergency department via walk-in, accompanied by her daughter referred by her PCP office for evaluation of fever in the setting of being managed outpatient for a wound infection of her right distal forearm which tested positive for MRSA per the daughter at the bedside. Patient had been treated with Bactrim for the past week. The patient's daughter reports the patient has been slightly confused from her baseline which does have a degree of mild cognitive impairment/dementia but this was worse. Additionally, she reports having poor appetite and poor oral intake over the past several days and last night began to have itching all over her body and noted that she had some mild swelling and redness of her face. This did improve somewhat with Benadryl. The patient had a fever of 39 at her PCP office today and they report that they were unaware of the patient being feverish or having fevers until they were assessed today in the office. They deny any cough, congestion. Denies any known tick bites or exposure risks. ROS: See above HPI for pertinent positives & negatives. A total of 10 systems reviewed and were otherwise negative. VITALS:See Below PHYSICAL EXAMINATION: GENERAL: Awake, alert, in no distress HENT: Normocephalic, atraumatic. Oropharynx with no desquamation, ulceration or edema. EYES: Normal conjunctiva. Sclera non-icteric. NECK: Supple. No nuchal rigidity. FROM. No JVD. RESPIRATORY: Clear to auscultation. CARDIAC: Tachycardic rate, irregular rhythm. Extremities warm and well perfused. Pulses equal. ABDOMEN: Soft, non-distended. No tenderness to palpation. No rebound or guarding. No masses. MUSCULOSKELETAL: Chest examination reveals no tenderness. The back is symmetrical on inspection without obvious abnormality. There is no CVA tenderness to palpation. No joint edema. LOWER EXTREMITIES: Calves are equal size bilaterally and non-tender. No edema. No discoloration. NEURO: Normal sensorium. No sensory or motor deficits noted. SKIN: Blanchable erythema of the face and scattered patches of blanchable erythema of her extremities, chest, abdomen. There is no oropharyngeal involvement. There is no desquamation. There is no vesicles/bullae. ~3cm superficial wound/ulceration of the radial-dorsal aspect of the distal right forearm with mild surrounding erythema and warmth. Mild induration. No underlying fluctuance or crepitus. Scant yellow crusting. Aurelio Dias MD Past Med/Surg History Problem List (Updated 04/18/24 @ 22:00 by Aurelio Dias MD) Atrial fibrillation with rapid ventricular response (Acute) Cellulitis of forearm, right (Acute) Cellulitis of left knee Right arm cellulitis Allergic reaction (Acute) Hypotension COSMO (acute kidney injury) (Acute) Infection of wound due to methicillin resistant Staphylococcus aureus (MRSA) (Acute) Fever (Acute) Restrictive lung disease Hemoptysis Ex-smoker Pulmonary nodule Ex-smoker Abnormal chest CT Hypertension Hyperlipidemia Diabetes mellitus Atrial fibrillation Cough with hemoptysis (Acute) Lung mass (Acute) Chronic kidney disease, stage 3a Hemorrhoids Cardiomyopathy TIA (transient ischemic attack) Seizure-like activity Medical History (Updated 04/18/24 @ 22:00 by Aurelio Dias MD) Hypokalemia Surgical History No pertinent past surgical history Family History (Updated 10/12/22 @ 10:07 by Shelly Hou, ANNE) Unknown Asthma Diabetes Heart disease Allergies Social History Smoking Status: Former smoker Tobacco Type: Cigarettes Do You Dip or Chew Tobacco: No; Hx Alcohol Use: Yes Hx Substance Use: No Preferred Language: Polish Communication Ability: Effective Pipe Cleaner Required: No Beliefs That Will Affect Care: None Current Living Situation: Alone Feels Safe at Home: Yes Assistive Devices: Cane and Walker Allergies Allergies Allergy/AdvReac Type Severity Reaction Status Date / Time Sulfa (Sulfonamide Allergy Severe Full body Verified 04/18/24 14:23 Antibiotics) rash; itching aspirin Allergy Unknown RED RASH Verified 02/27/24 16:04 diphenhydramine Allergy RED RASH Verified 02/27/24 16:04 Home Meds Home Medications Medication Instructions Recorded Confirmed lisinopril 20 mg tablet 20 mg PO DAILY 01/16/21 04/18/24 metoprolol succinate 25 mg 25 mg PO DAILY 01/16/21 04/18/24 tablet,extended release 24 hr hydrochlorothiazide 25 mg tablet 25 mg PO DAILY 05/25/21 04/18/24 apixaban 5 mg tablet (Eliquis) 5 mg PO BID 04/18/24 04/18/24 sertraline 50 mg tablet 75 mg PO DAILY 04/18/24 04/18/24 Previous Rx's Medication Instructions Recorded atorvastatin 20 mg tablet (Lipitor) 20 mg PO DAILY #30 tabs 01/18/21 Results & Data (ED) Vital Signs Vital Signs - 24 hr 04/18/24 11:42 04/18/24 12:15 04/18/24 12:27 Temperature 36.8 C Temperature Source Temporal Artery Scan Pulse Rate 127 H 92 H Pulse Rate [Apical] 123 H Pulse Rhythm Regular Regular Pulse Rhythm [Apical] Irregular Pulse Strength Normal Pulse Strength [Apical] Normal Respiratory Rate 20 20 24 Respiratory Effort / Characteristics Non-Labored Spontaneous Non-Labored Spontaneous Respiratory Depth Normal Normal Respiratory Pattern Regular Blood Pressure 108/56 L Blood Pressure [Right Arm] 94/65 L Blood Pressure Mean 73 Blood Pressure Mean [Right Arm] 74 Blood Pressure Position Sitting Blood Pressure Position [Right Arm] Sitting Pulse Oximetry 95 92 94 Oxygen Delivery Method Room Air Room Air Room Air Sepsis Recent Fever Within 48 Hours No Sepsis New/Unexplained Change in Mental Status N/A Sepsis Action Taken by Nursing No Action Required 04/18/24 12:35 04/18/24 13:00 04/18/24 13:08 Temperature 37.7 C H Temperature Source Oral Pulse Rate 101 H Pulse Rate [Apical] 100 H 112 H Pulse Rhythm Pulse Rhythm [Apical] Regular Irregular Pulse Strength Pulse Strength [Apical] Normal Normal Respiratory Rate 23 26 H Respiratory Effort / Characteristics Non-Labored Spontaneous Non-Labored Spontaneous Respiratory Depth Normal Normal Respiratory Pattern Regular Regular Blood Pressure Blood Pressure [Right Arm] 94/62 L 99/62 L Blood Pressure Mean Blood Pressure Mean [Right Arm] 72 74 Blood Pressure Position Blood Pressure Position [Right Arm] Lying Sitting Pulse Oximetry 93 93 Oxygen Delivery Method Room Air Room Air Sepsis Recent Fever Within 48 Hours Sepsis New/Unexplained Change in Mental Status Sepsis Action Taken by Nursing 04/18/24 13:30 04/18/24 14:00 Temperature Temperature Source Pulse Rate Pulse Rate [Apical] 106 H 91 H Pulse Rhythm Pulse Rhythm [Apical] Irregular Irregular Pulse Strength Pulse Strength [Apical] Normal Normal Respiratory Rate 24 24 Respiratory Effort / Characteristics Non-Labored Spontaneous Non-Labored Spontaneous Respiratory Depth Normal Normal Respiratory Pattern Regular Regular Blood Pressure Blood Pressure [Right Arm] 112/71 105/58 L Blood Pressure Mean Blood Pressure Mean [Right Arm] 84 73 Blood Pressure Position Blood Pressure Position [Right Arm] Sitting Sitting Pulse Oximetry 94 93 Oxygen Delivery Method Room Air Room Air Sepsis Recent Fever Within 48 Hours Sepsis New/Unexplained Change in Mental Status Sepsis Action Taken by Nursing Laboratory Data Attestation: I reviewed the patient's lab results. 04/18/24 12:13 04/18/24 12:13 Lab Results 07/18/24 07/18/24 07/18/24 Range/Units 12:13 12:34 13:28 WBC 7.41 (4.8-10.8) K/ul RBC 4.77 (4.20-5.40) M/uL Hgb 13.7 (12.0-16.0) g/dl Hct 41.8 (37.0-47.0) % MCV 87.6 (80.0-100.0) fL MCH 28.7 (25.0-34.0) pg MCHC 32.8 (32.0-36.0) g/dL RDW Std Deviation 46.3 (36.4-46.3) fL RDW Coeff of [place] 14.3 (11.5-14.5) % Plt Count 163 (130-400) K/uL MPV 10.7 (9.4-12.4) fL Immature Gran % (Auto) 0.4 % Neut % (Auto) 74.2 % Lymph % (Auto) 10.3 % [place] % (Auto) 11.2 % Eos % (Auto) 3.6 % Baso % (Auto) 0.3 % Neut # (Auto) 5.50 (1.40-6.50) K/uL Lymph # (Auto) 0.76 L (1.20-3.40) K/uL [place] # (Auto) 0.83 H (0.11-0.59) K/uL Eos # (Auto) 0.27 (0.00-0.50) K/uL Baso # (Auto) 0.02 (0.00-0.20) K/uL Immature Gran # (Auto) 0.03 (0.01-0.20) K/uL ESR 36 H (0-30) mm/hr PT 10.9 (9.0-12.0) Seconds INR 1.0 (0.9-1.1) Sodium 133 L (136-145) mmol/L Potassium 3.9 (3.5-5.1) mmol/L Chloride 100 (98-107) mmol/L Carbon Dioxide 24 (21-32) mmol/L Anion Gap 9 (3-11) BUN 44 H (6-23) mg/dl Creatinine 2.65 H (0.6-1.2) mg/dl Est Cr Clr Drug Dosing 16.8 ml/min Est GFR ( Amer) 19.1 ml/min Est GFR (Non-Af Amer) 16.5 ml/min BUN/Creatinine Ratio 16.6 (10-20) Glucose 129 H (70-99(Fasting)) mg/dl Lactate 1.6 (0.4-2.0) mmol/L Calcium 8.9 (8.6-10.3) mg/dl Magnesium 2.2 (1.7-2.4) mg/dl Total Bilirubin 0.6 (0.2-1.0) mg/dl Direct Bilirubin 0.0 (0-0.2) mg/dl AST 32 (13-39) U/L ALT 17 (7-52) U/L Alkaline Phosphatase 44 (34-104) U/L Troponin I High Sens 12.5 (0-14) pg/ml C-Reactive Protein 1.79 H (0-0.5) mg/dl Total Protein 7.5 (6.0-8.3) gm/dl Albumin 4.0 (3.4-5.0) gm/dl Procalcitonin 0.40 (0-0.5) ng/ml Urine Color Dark Yellow Urine Appearance Turbid A (Clear) Urine pH 5.0 (4.5-7.5) Ur Specific [place] 1.026 (1.000-1.030) Urine Protein 1+ H (Negative) Urine Glucose (UA) Negative (Negative) Urine Ketones Trace H (Negative) Urine Blood Negative (Negative) Urine Nitrite Negative (Negative) Urine Bilirubin 2+ H (Negative) Urine Urobilinogen Negative (Negative) Ur Leukocyte Esterase 1+ H (Negative) Urine WBC (Auto) 11-20 H (0-5) /hpf Urine RBC (Auto) 0-2 (0-2) /hpf U Hyaline Cast (Auto) >20 H (0-2) /lpf U Epithel Cells (Auto) 11-20 H (0-2) /hpf Urine Bacteria (Auto) None Seen (None Seen) Calcium Oxalate Crystal Present A (None Prsent) Adenovirus (PCR) Not Detected (NotDetected) B. pertussis DNA (PCR) Not Detected (NotDetected) B.parapertussis DNA PCR Not Detected (NotDetected) C. pneumoniae DNA (PCR) Not Detected (NotDetected) Coronavirus OC43 (PCR) Not Detected (NotDetected) Coronavirus HKU1 (PCR) Not Detected (NotDetected) Coronavirus 229E (PCR) Not Detected (NotDetected) SARS-CoV-2 (PCR) Not Detected (NotDetected) Coronavirus NL63 (PCR) Not Detected (NotDetected) Human Metapneumovir PCR Not Detected (NotDetected) Influenza Type A (PCR) Not Detected (NotDetected) Influenza Type B (PCR) Not Detected (NotDetected) M. pneumoniae (PCR) Not Detected (NotDetected) Parainfluenza 1 (PCR) Not Detected (NotDetected) Parainfluenza 2 (PCR) Not Detected (NotDetected) Parainfluenza 3 (PCR) Not Detected (NotDetected) Parainfluenza 4 (PCR) Not Detected (NotDetected) RSV (PCR) Not Detected (NotDetected) Entero/Rhino (PCR) Not Detected (NotDetected) Administered Medications Apixaban (Apixaban 2.5 Mg Tab) 2.5 mg PO BID [facility] Stop: 05/18/24 20:59 Last Admin: 04/18/24 20:04 Dose: 2.5 mg Documented By: MATEUS Lactated Ringer's (Lr) 1,000 mls @ 100 mls/hr IV .Q10H [facility] Stop: 04/19/24 06:59 Last Admin: 04/18/24 20:04 Dose: 100 mls/hr Documented By: MATEUS Discontinued Medications Cetirizine HCl (Cetirizine Hcl 10 Mg Tablet) 10 mg PO NOW ONE Stop: 04/18/24 14:49 Last Admin: 04/18/24 15:25 Dose: 10 mg Documented By: DENITA Sodium Chloride (Nss) 500 mls @ 999 mls/hr IV .Q31M [facility] Stop: 04/18/24 12:30 Last Infusion: 04/18/24 14:16 Dose: Infused Documented By: Admin: 04/18/24 13:16 Dose: 999 mls/hr Documented By: Sodium Chloride (Nss) 500 mls @ 250 mls/hr IV .Q2H [facility] Stop: 05/18/24 11:59 Last Admin: 04/18/24 16:53 Dose: Not Given Documented By: Admin: 04/18/24 16:53 Dose: Not Given Documented By: Infusion: 04/18/24 16:26 Dose: Infused Documented By: Admin: 04/18/24 14:17 Dose: 250 mls/hr Documented By: DENITA Acetaminophen (Ofirmev) 1,000 mg in 100 mls @ 400 mls/hr IV NOW STA Stop: 04/18/24 12:14 Last Infusion: 04/18/24 13:30 Dose: Infused Documented By: Admin: 04/18/24 13:15 Dose: 400 mls/hr Documented By: Cefepime HCl (Maxipime) 2,000 mg in 20 mls @ 5 mls/min IV NOW STA; Protocol Stop: 04/18/24 12:07 Last Admin: 04/18/24 13:15 Dose: 5 mls/min Documented By: Daptomycin 375 mg/ Syringe 7.5 mls @ 3.75 mls/min IV Q24H [facility]; Protocol Stop: 04/20/24 12:14 Last Admin: 04/18/24 13:15 Dose: 3.75 mls/min Documented By: Sodium Chloride (Nss) 500 mls @ 125 mls/hr IV .Q4H [facility] Stop: 05/18/24 13:29 Last Admin: 04/18/24 16:53 Dose: Not Given Documented By: MIK Lactated Ringer's (Lr) 500 mls @ 999 mls/hr IV .Q31M [facility] Stop: 04/18/24 15:14 Last Infusion: 04/18/24 19:10 Dose: Infused Documented By: Admin: 04/18/24 17:10 Dose: 999 mls/hr Documented By: MIK Methylprednisolone (Methylprednisolone 125 Mg/2 Ml Vial) 125 mg IV NOW STA Stop: 04/18/24 12:04 Last Admin: 04/18/24 13:15 Dose: 125 mg Documented By: Imaging Data Radiologist's Impression: Chest X-Ray 04/18/24 12:01 SINGLE VIEW CHEST CLINICAL HISTORY: Sepsis FINDINGS: An AP, portable, upright chest radiograph is compared to study dated 06/24/2022 and correlated with chest CT dated 06/26/2023. The heart is enlarged noting atherosclerotic calcification of the thoracic aorta. The pulmonary vasculature is noncongested. Chronic interstitial thickening is previous. There is mild bibasilar scarring/atelectasis. A calcified nodule is again seen at the right lung base was better assessed on the recent chest CT. The lungs and pleural spaces are otherwise clear. No pneumothorax is seen. The skeletal structures are osteopenic. The bony thorax is grossly intact. IMPRESSION: Cardiomegaly with no active disease in the chest. ACT 112: Negative or not required by law. Electronically signed by: Trung Abdalla M.D. 04/18/2024 1:18 PM Knee X-Ray 04/18/24 14:16 LEFT KNEE 2 VIEWS CLINICAL HISTORY: Swelling and erythema. Infection. FINDINGS: AP and crosstable lateral views of the left knee are obtained. No prior studies are available for comparison at the time of dictation. The skeletal structures are osteopenic. No fracture is seen. There is minimal degenerative joint space narrowing. No joint effusion is seen. There are patellar enthesophytes. Prepatellar soft tissue swelling is observed. There is atherosclerotic calcification of the popliteal artery. IMPRESSION: No acute bony abnormality is identified. Electronically signed by: Trung Abdalla M.D. 04/18/2024 2:54 PM Discharge Plan Visit Data Chief Complaint: Referred by Doctor Stated Complaint: POSSIBLE STAF INFECTION, FEVER, RT ARM ED Provider: Aurelio Dias Discharge Problem: Fever, Infection of wound due to methicillin resistant Staphylococcus aureus (MRSA), COSMO (acute kidney injury), Allergic reaction, Cellulitis of forearm, right, Atrial fibrillation with rapid ventricular response Patient Disposition: Admitted As Inpatient Discharge Instructions Interventions: ED Discharge Assessment Last Done: 04/18/24 15:36 Discharge Problem: Fever Qualifiers: Fever type: unspecified Qualified Code(s): R50.9 - Fever, unspecified Allergic reaction Qualifiers: Encounter type: initial encounter Qualified Code(s): T78.40XA - Allergy, unspecified, initial encounter
[2024-04-18 12:32] LABS: Hematocrit (blood only) 41.8 % (37.0-47.0); Hemoglobin 13.7 g/dl (12.0-16.0); Mean Corpuscular Hemoglobin 28.7 pg (25.0-34.0); Mean Corpuscular Hgb Conc 32.8 g/dL (32.0-36.0); Mean Corpuscular Volume 87.6 fL (80.0-100.0); Mean Platelet Volume 10.7 fL (9.4-12.4); Platelet Count 163 K/uL (130-400); RDW Coefficient of Variation 14.3 % (11.5-14.5); RDW Standard Deviation 46.3 fL (36.4-46.3); Red Blood Count 4.77 M/uL (4.20-5.40); White Blood Count 7.41 K/ul (4.8-10.8)
[2024-04-18 12:47] LABS: BUN Creatinine Ratio 16.6 (10-20); Bilirubin,Total 0.6 mg/dl (0.2-1.0); Calcium 8.9 mg/dl (8.6-10.3); Creatinine Clr Calc Pharmacy 16.8 ml/min; Est GFR (African American) 19.1 ml/min; Est GFR (Non-African American) 16.5 ml/min; Magnesium 2.2 mg/dl (1.7-2.4); Potassium 3.9 mmol/L (3.5-5.1); Total Protein 7.5 gm/dl (6.0-8.3)
[2024-04-18 12:48] LABS: Basophils # (auto) 0.02 K/uL (0.00-0.20); Basophils % (auto) 0.3 %; Eosinophils # (auto) 0.27 K/uL (0.00-0.50); Eosinophils % (auto) 3.6 %; Immature Granulocytes # (auto) 0.03 K/uL (0.01-0.20); Immature Granulocytes % (auto) 0.4 %; Lymphocytes # (auto) 0.76 K/uL (1.20-3.40); Lymphocytes % (auto) 10.3 %; Monocytes # (auto) 0.83 K/uL (0.11-0.59); Monocytes % (auto) 11.2 %; Neutrophils % (auto) 74.2 %
[2024-04-18 12:52] LABS: Troponin I High Sensitivity 12.5 pg/ml (0-14)
[2024-04-18 12:54] LABS: Appearance Urine Turbid (Clear); Bacteria Urine Automated None Seen (None Seen); Bilirubin Urine 2+ (Negative); Blood Urine Negative (Negative); Calcium Oxalate Crystals Urine Present (None Prsent); Cast Urine Automated >20 /lpf (0-2); Color Urine Dark Yellow; Glucose Urine UA Negative (Negative); Ketones Urine Trace (Negative); Leukocyte Esterase Urine 1+ (Negative); Nitrite Urine Negative (Negative); Protein Urine 1+ (Negative); Specific Gravity Urine 1.026 (1.000-1.030); Urobilinogen Urine Negative (Negative)
[2024-04-18 12:57] LABS: RBC Urine Automated 0-2 /hpf (0-2)
[2024-04-18 13:05] LABS: Prothrombin Time 10.9 Seconds (9.0-12.0)
[2024-04-18] MEDS: DAPTOmycin 375 MG in SYRINGE 0 ML IV SCH (13:15)
[2024-04-18] MEDS: CEFEPIME 2,000 MG/20 ML VIAL IV STA (13:15)
[2024-04-18] MEDS: methylPREDNISolone 125 MG/2 ML VIAL IV STA (13:15)
[2024-04-18] MEDS: ACETAMINOPHEN 1,000 MG/100 ML VIAL IV STA (13:15)
[2024-04-18] MEDS: SODIUM CHLORIDE 0.9% 500 ML IV SCH ×3 (13:16→16:53)
--- NOTE | 2024-04-18 13:19 | XRay Report ---
SINGLE VIEW CHEST CLINICAL HISTORY: Sepsis FINDINGS: An AP, portable, upright chest radiograph is compared to study dated 06/24/2022 and correlat ed with chest CT dated 06/26/2023. The heart is enlarged noting atherosclerotic calcification of the t horacic aorta. The pulmonary vasculature is noncongested. Chronic interstitial thickening is previous . There is mild bibasilar scarring/atelectasis. A calcified nodule is again seen at the right lung ba se was better assessed on the recent chest CT. The lungs and pleural spaces are otherwise clear. No p neumothorax is seen. The skeletal structures are osteopenic. The bony thorax is grossly intact. IMPRESSION: Cardiomegaly with no active disease in the chest. ACT 112: Negative or not required by law. Electronically signed by: Trung Abdalla M.D. 04/18/2024 1:18 PM
--- NOTE | 2024-04-18 13:29 | History & Physical Report ---
Date of Service April 18, 2024 Assessment & Plan (1) Right arm cellulitis: Plan: Wound culture performed at [facility] on 04/09/2024 for weeping wound on right dorsal wrist Wound culture grew MSSA and Enterobacter (resistant to pen G) MSSA susceptible to daptomycin Enterobacter susceptible to cefepime She was placed on Bactrim twice daily x 10 days Lactate and procalcitonin WNL No leukocytosis; however patient is mildly febrile in the ED at 37.7 C CRP and ESR ordered, pending Continue cefepime + daptomycin; hold atorvastatin Follow current blood culture Acetaminophen as needed for pain/fever Daily wound care A.m. CBC, BMP, CRP (2) Allergic reaction: Plan: Patient developed facial swelling and itching on 04/17 May be secondary to Bactrim Daughter gave Benadryl Solu-Medrol 125 mg IV given in the ED No signs of mucosal involvement, but will continue to monitor for SJS Avoid sulfa antibiotics Tryptase level ordered, pending Will defer additional steroids of Benadryl as patient reports no itching or burning at this time Cetirizine 10 mg p.o. daily (3) Cellulitis of left knee: Plan: Left knee is erythematous and warm to touch No effusion; no pain with bending Patient does not she fell and injured it several weeks ago Patient denies history of hardware in the left knee or leg Left knee x-ray ordered, pending (4) COSMO (acute kidney injury): Plan: BUN 44, creatinine 2.65 (most recent baseline was 0.90 back in 2021), EGFR 16.5 Avoid nephrotoxic agents Suspect this is secondary to recent Bactrim use for cellulitis NSS 1000 mL IV given in the ED Continue IVF resuscitation with LR 500 mL bolus, then LR at 100 mL an hour x 1 L overnight Caution fluid overload; last echocardiogram on 06/27/2023 revealed LVEF at 45% with mild global hypokinesis of the left ventricle Trend BMP Hold lisinopril, hydrochlorothiazide (5) Atrial fibrillation: Plan: Rate controlled Continue Eliquis Dose reduction (age is not >80, and weight >60kg, but patient does exhibit significant increased creatinine) Temporary dose reduction to Eliquis 2.5 mg p.o. BID Please return dosage to 5.0 mg p.o. BID once kidney function improves Continue metoprolol (6) Diabetes mellitus: Plan: Last A1c 6.2% in 2020 Patient is not currently on medications and has not been for several years Diet controlled at home; in the setting of COSMO will defer insulin and continue diet controlled while inpatient BSG ACHS Adjust regimen as needed AM A1c (7) Hyperlipidemia: Plan: Hold statin (8) Hypotension: Plan: Okay to continue metoprolol in the morning if hypotension resolves Hold lisinopril, HCTZ (as above) Plan Disposition: Admit to PCU telemetry Full code T2DM diet DVT PPx: Dose reduction of Eliquis to 2.5 mg p.o. twice daily for now History of Present Illness Chief Complaint: Referred by doctor Primary Care Provider: Enriqueta Harry MD Viridiana is a pleasant 78-year-old female with PMH of TIA, cardiomyopathy, diabetes mellitus, HLD, HTN, seizure-like activity, and restrictive lung disease. She presented on 04/18 for worsening MSSA and Enterococcus infection in her right wrist. She was initially placed on Bactrim for the infection on 04/09, but then developed a rash across her body yesterday. Patient's daughter is at the bedside and provides most of the history. She reports that patient's red, blotchy rash started yesterday and has progressively worsened. Initially was itching so the patient's daughter gave her children's Benadryl 10 mL last night. She then went to her PCPs office this morning and had a fever of 103 F. No prior history of cellulitis or MRSA infections. She did not take any of her regular morning medications today; other than starting Bactrim on either the evening of 04/09 or the morning of 04/10 she denies any recent changes in medications. She denies smoking or tobacco use; former smoker but quit 39 years old. No recent alcohol use. Patient denies IV drug use. She denies sexual activity. Patient is hypotensive at 94/62, tachycardic at 101 bpm, and febrile at 37.7 C at time of admission. ED course: NSS 500 mL IV x 2 Daptomycin 375 mg IV Cefepime 2000 mg IV Acetaminophen 1000 mg IV Solu-Medrol 125 mg IV ROS: Patient endorses fever, chills, night-sweats, red blotching rash, itching on right arm, lightheaded with standing, N/V (on Monday and Monday; stomach bile; not eating much), and loose stool. Patient denies dizziness, RDZ, pain in right arm, chest pain, SOB, cough, abdominal pain, diarrhea, hematemesis, blood in the urine/stool, burning with urination, dysuria, or numbness/tingling in the arms or legs. Allergies Allergy/AdvReac Type Severity Reaction Status Date / Time Sulfa (Sulfonamide Allergy Severe Full body Verified 04/18/24 14:23 Antibiotics) rash; itching aspirin Allergy Unknown RED RASH Verified 02/27/24 16:04 diphenhydramine Allergy RED RASH Verified 02/27/24 16:04 Home Medications Medication Instructions Recorded Confirmed Type lisinopril 20 mg tablet 20 mg PO DAILY 01/16/21 04/18/24 History metoprolol succinate 25 mg 25 mg PO DAILY 01/16/21 04/18/24 History tablet,extended release 24 hr atorvastatin 20 mg tablet (Lipitor) 20 mg PO DAILY #30 tabs 01/18/21 04/18/24 Rx hydrochlorothiazide 25 mg tablet 25 mg PO DAILY 05/25/21 04/18/24 History apixaban 5 mg tablet (Eliquis) 5 mg PO BID 04/18/24 04/18/24 History sertraline 50 mg tablet 75 mg PO DAILY 04/18/24 04/18/24 History Past Med/Surg History Problem List (Updated 04/18/24 @ 14:50 by Sharath Salcido PA-C) Cellulitis of left knee Right arm cellulitis Allergic reaction Hypotension COSMO (acute kidney injury) Infection of wound due to methicillin resistant Staphylococcus aureus (MRSA) (Acute) Fever (Acute) Restrictive lung disease Hemoptysis Ex-smoker Pulmonary nodule Ex-smoker Abnormal chest CT Hypertension Hyperlipidemia Diabetes mellitus Atrial fibrillation Cough with hemoptysis (Acute) Lung mass (Acute) Chronic kidney disease, stage 3a Hemorrhoids Cardiomyopathy TIA (transient ischemic attack) Seizure-like activity Medical History (Updated 04/18/24 @ 14:50 by Sharath Salcido PA-C) Hypokalemia Surgical History No pertinent past surgical history Family History (Updated 10/12/22 @ 10:07 by Shelly Huo RN) Unknown Asthma Diabetes Heart disease Allergies Social History Smoking Status: Former smoker Tobacco Type: Cigarettes Do You Dip or Chew Tobacco: No; Hx Alcohol Use: Yes Hx Substance Use: No Preferred Language: Northern Irish Communication Ability: Effective Captain'S Assistant Required: No Beliefs That Will Affect Care: None Current Living Situation: Alone Feels Safe at Home: Yes Assistive Devices: Cane and Walker Review of Systems 2 Review of Systems: See HPI above Physical Exam 2 Physical Exam: General: no acute distress; pleasant affect; non-toxic appearing; well- nourished; cooperative; SpO2 93% on RA HEENT: normocephalic, atraumatic; no scleral icterus; PERRLA w/ EOMs intact; moist mucus membrane; patient may exhibit mild petechiae in the posterior pharynx; no clear ulcerations in the mouth or clear mucosal involvement at this time; vision and hearing grossly intact Neck: supple; no lymphadenopathy; trachea midline Skin: warm, dry without signs of tenting; no cyanosis; diffuse, blotchy rash across the face, back, and abdomen; blanchable CV: chest wall NTP; irregularly irregular rhythm; S1/S2 normal; no murmurs/rubs/gallops; pulses intact and symmetric at radial, DP, and PT Lungs: no acute respiratory distress; symmetrical chest wall expansion; clear breath sounds across all lung eddy w/o adventitious sounds; no wheezing ABD: Soft, NTP; BS present; no rebound/guarding; no distention MSK: no tics or fasciculations; no edema noted in the LEs b/l, nonerythematous; left dorsal wrist lesion with circumferential erythema of approximately 3 cm (see photo below), erythematous left knee without signs of effusion; patient demonstrates ability to bend knees bilaterally without pain; NTP; full ROM Neuro: Alert and oriented to name//location, but not month or season; normal mood and affect; fluent speech; no focal deficits; sensation grossly intact in the LEs b/l Results & Data Results & Data Vital Signs (Past 12 Hours) Vital Signs Temp Pulse Pulse Resp BP BP Pulse Ox 04/18/24 13:08 101 H 04/18/24 12:35 37.7 C H 100 H 23 94/62 L 93 04/18/24 12:15 92 H 20 92 07/18/24 11:42 36.8 C 127 H 20 108/56 L 95 O2 Del Method 04/18/24 13:08 04/18/24 12:35 Room Air 04/18/24 12:15 Room Air 04/18/24 11:42 Room Air Laboratory Results Abnormal lab results 04/18/24 04/18/24 Range/Units 12:13 12:34 Lymph # (Auto) 0.76 L (1.20-3.40) K/uL [place] # (Auto) 0.83 H (0.11-0.59) K/uL Sodium 133 L (136-145) mmol/L BUN 44 H (6-23) mg/dl Creatinine 2.65 H (0.6-1.2) mg/dl Glucose 129 H (70-99(Fasting)) mg/dl Urine Appearance Turbid A (Clear) Urine Protein 1+ H (Negative) Urine Ketones Trace H (Negative) Urine Bilirubin 2+ H (Negative) Ur Leukocyte Esterase 1+ H (Negative) Urine WBC (Auto) 11-20 H (0-5) /hpf U Hyaline Cast (Auto) >20 H (0-2) /lpf U Epithel Cells (Auto) 11-20 H (0-2) /hpf Calcium Oxalate Crystal Present A (None Prsent) Diagnostic Findings Chest X-Ray 04/18/24 12:01 SINGLE VIEW CHEST CLINICAL HISTORY: Sepsis FINDINGS: An AP, portable, upright chest radiograph is compared to study dated 06/24/2022 and correlated with chest CT dated 06/26/2023. The heart is enlarged noting atherosclerotic calcification of the thoracic aorta. The pulmonary vasculature is noncongested. Chronic interstitial thickening is previous. There is mild bibasilar scarring/atelectasis. A calcified nodule is again seen at the right lung base was better assessed on the recent chest CT. The lungs and pleural spaces are otherwise clear. No pneumothorax is seen. The skeletal structures are osteopenic. The bony thorax is grossly intact. IMPRESSION: Cardiomegaly with no active disease in the chest. ACT 112: Negative or not required by law. Electronically signed by: Trung Abdalla M.D. 04/18/2024 1:18 PM ECG Additional Comments: ECG revealed atrial fibrillation with RVR at 102 bpm; QTc 440 Code Status & VTE Plan Code Status Full code (discussed with patient and patient's daughter/POA at the bedside) VTE Prophylaxis Plan VTE Prophylaxis will be ordered: Yes Supervising Physician Co-Signing Physician Notes Viridiana is a 78yo F who was febrile and poor appearing at her [facility] PCP followup today. RIGHT DORSAL wrist wound ~3cm which is improving, but poor PO intake while in bactrim. Tachycardic. Cr baseline 0.90, increased to 2.65. Some red rash while on bactrim, blanching. No mucous membrane ulcerations/swelling. Suspect right wrist cellulitis, improving, but with Bactrim associated kidney injury, poor p.o. intake with superimposed prerenal injury, and suspected rash due to allergy. Right forearm wound with seepage, culture positive as outpatient for MSSA resistant to penicillin G, and Enterobacter. At office visit today temperature 39.4 C. Was referred due to tachycardia, fever, lower than typical blood pressure, and worsening systemic symptoms despite outpatient Bactrim treatment. Seen at the bedside. Diffuse blanching slightly pruritic rash on the chest, face, back, proximal arms without urticaria. No lip lesions/mucosal swelling. Patient's family confirms this rash started shortly after taking Bactrim. Poor p.o. intake last 2 days. Patient otherwise feels well. No diarrhea. Her right arm wound is actually improving, and looks much better than when she started the Bactrim however she has had poor appetite and rash as described while on this. Wound culture 04/09/2024 reviewed MSSA. Susceptible to clindamycin, daptomycin, linezolid, oxacillin, rifampin, tetracycline, Bactrim, vancomycin. Resistant to penicillin G LAUREN 2. Enterobacter cloaca complex. Resistant to Augmentin, ampicillin, Unasyn, cefazolin. Susceptible to cefepime with LAUREN less than equal to 2, ciprofloxacin with LAUREN less than or equal to 0.25, gentamicin with LAUREN less than 2, levofloxacin with LAUREN less than 0.5, tetracycline with LAUREN less than 4, Bactrim with LAUREN less than 0.5/9.5. - BC ordered given persistent tachycardia, fever of 100.3 prehospital, and DM with right wound although overall wound site actually appears to be improving. Denies respiratory, GI, urinary symptoms. - Bactrim discontinued. - In the ER patient received cefepime/daptomycin. - Oxacillin LAUREN is less than 0.25. Enterobacter sensitive to cefepime, although resistant to cefazolin. Will continue cefepime at this time, received 1 dose of daptomycin. Dapto d/denise. CRP added and trended PG Care Time/CCT Total # of Minutes Spent Total Time Spent with Patient: Total time spent is greater than 50% in coordination of care (as documented) at patient's floor/unit and/or counseling patient: [place] [address] INT INP/OBS CARE 3/75MIN Patient Type Established History Comprehensive Exam Comprehensive Medical Decision Making High Complexity Diagnoses Right arm cellulitis L03.113 Allergic reaction T78.40XA Cellulitis of left knee L03.116 COSMO (acute kidney injury) N17.9 Atrial fibrillation I48.91 Diabetes mellitus E11.9 Hyperlipidemia E78.5 Hypotension I95.9
[2024-04-18 14:50] LABS: C Reactive Protein 1.79 mg/dl (0-0.5)
[2024-04-18 14:51] LABS: Adenovirus PCR Not Detected (NotDetected); Bordetella parapertussis PCR Not Detected (NotDetected); Bordetella pertussis PCR Not Detected (NotDetected); Chlamydia pneumoniae PCR Not Detected (NotDetected); Coronavirus 229E PCR Not Detected (NotDetected); Coronavirus CoV-2 (COVID19)PCR Not Detected (NotDetected); Coronavirus HKU1 PCR Not Detected (NotDetected); Coronavirus NL63 PCR Not Detected (NotDetected); Coronavirus OC43PCR Not Detected (NotDetected); Human Metapneumovirus PCR Not Detected (NotDetected); Influenza A PCR Not Detected (NotDetected); Influenza B PCR Not Detected (NotDetected); Mycoplasma pneumoniae PCR Not Detected (NotDetected); Parainfluenza Virus 1 PCR Not Detected (NotDetected); Parainfluenza Virus 2 PCR Not Detected (NotDetected); Parainfluenza Virus 3 PCR Not Detected (NotDetected); Parainfluenza Virus 4 PCR Not Detected (NotDetected); Respiratory Syncytial VirusPCR Not Detected (NotDetected); Rhinovirus/Enterovirus PCR Not Detected (NotDetected)
--- NOTE | 2024-04-18 14:55 | XRay Report ---
LEFT KNEE 2 VIEWS CLINICAL HISTORY: Swelling and erythema. Infection. FINDINGS: AP and crosstable lateral views of the left knee are obtained. No prior studies are availab le for comparison at the time of dictation. The skeletal structures are osteopenic. No fracture is se en. There is minimal degenerative joint space narrowing. No joint effusion is seen. There are patella r enthesophytes. Prepatellar soft tissue swelling is observed. There is atherosclerotic calcification of the popliteal artery. IMPRESSION: No acute bony abnormality is identified. Electronically signed by: Trung Abdalla M.D. 04/18/2024 2:54 PM
[2024-04-18] MEDS: CETIRIZINE HCL 10 MG TABLET PO ONE (15:25)
[2024-04-18] MEDS ORDERED: GLUCOSE 10 TAB/TUBE PO PRN (16:52)
[2024-04-18] MEDS ORDERED: GLUCOSE 40% GEL 15 GM TUBE PO PRN (16:52)
[2024-04-18] MEDS ORDERED: ACETAMINOPHEN 325 MG TAB PO PRN (16:52)
[2024-04-18] MEDS ORDERED: DEXTROSE 50% 50 ML SYRINGE IV PRN (16:52)
[2024-04-18] MEDS ORDERED: CARBOHYDRATES FOR HYPOGLYCEMIA PO PRN (16:52)
[2024-04-18] MEDS ORDERED: GLUCAGON FOR INJ 1 MG VIAL SQ PRN (16:52)
[2024-04-18] MEDS: LACTATED RINGER'S 500 ML IV ONE (17:10)
[2024-04-18] MEDS: APIXABAN 2.5 MG TAB PO SCH (20:04)
[2024-04-18] MEDS: LACTATED RINGER'S 1,000 ML IV SCH (20:04)
[2024-04-18] MEDS ORDERED: CEFEPIME 2,000 MG in SYRINGE 0 ML IV SCH (21:15)
[2024-04-19] MEDS: CEFEPIME 1,000 MG in SYRINGE 0 ML IV SCH (00:35)
[2024-04-19] MEDS: METOPROLOL SUCC 25MG EXT REL TAB PO SCH (14:49)
[2024-04-19] MEDS: SERTRALINE HCL 50 MG TABLET PO SCH (14:49)
[2024-04-19] MEDS: CETIRIZINE HCL 10 MG TABLET PO SCH (14:49)
--- NOTE | 2024-04-19 15:56 | Electrocardiogram Report ---
Test Reason : Blood Pressure : / mmHG Vent. Rate : 102 BPM Atrial Rate : 000 BPM P-R Int : 000 ms QRS Dur : 090 ms QT Int : 338 ms P-R-T Axes : 000 032 005 degrees QTc Int : 440 ms Atrial fibrillation with rapid ventricular response Nonspecific ST and T wave abnormality Abnormal ECG When compared with ECG of 22-JUN-2022 02:48, Nonspecific T wave abnormality, improved in Inferior leads Confirmed by Jb Gallagher ([id number]) on 04/19/2024 3:56:42 PM Referred By: Enriqueta Harry Confirmed By:Jb Gallagher
[2024-04-19] MEDS: SODIUM CHLORIDE 0.9% 1,000 ML IV SCH (16:51)
[2024-04-19 17:35] LABS: Calcium 8.4 mg/dl (8.6-10.3); Est GFR (Non-African American) 32.8 ml/min; Potassium 3.3 mmol/L (3.5-5.1)
--- NOTE | 2024-04-19 17:50 | Hospitalist Progress Note ---
Date of Service April 19, 2024 Assessment & Plan (1) Right arm cellulitis: Plan: In the setting of an ulceration on distal right arm Wound culture performed at [facility] on 04/09/2024 of this ulcer grew MSSA and Enterobacter (resistant to pen G) Had been taking bactrim BID since 04/09/24 Now with apparent drug rxn to the bactrim which has been d/c Currently on cefepime/daptomycin; stop the daptomycin today Will ask wound care to see in consult for wound care recommendations for the ulcer Follow blood cx's (2) Allergic reaction: Plan: Patient developed facial swelling and itching on 04/17 Followed by diffuse erythematous rash suspect 2nd to bactrim developed COSMO and fevers in this setting - serum sickness? Either way received Solu-Medrol 125 mg IV in the ED at presentation No evidence of SJS Change zyrtec to kirk BID Give another dose of prednisone today repeat labs am (3) Cellulitis of left knee: Plan: Left knee by report was erythematous upon admission a cellulitis would not have resolved in 24 hours perhaps the erythema was simply inflammation from the recent fall? by report she had no effusion thus gout or CPPD unlikely will cont to monitor carefully x-rays of L knee noted (4) COSMO (acute kidney injury): Plan: Peak creatinine 2.65 (most recent baseline was 0.90 back in 2021), EGFR 16.5 Hold lisinopril, hydrochlorothiazide Cr today 1.5 thus improving nicely She looks volume contracted - will give another liter of saline (5) Atrial fibrillation: Plan: Rate controlled Continue Eliquis Dose reduction (age is not >80, and weight >60kg, but patient does exhibit significant increased creatinine) Temporary dose reduction to Eliquis 2.5 mg p.o. BID Please return dosage to 5.0 mg p.o. BID once kidney function improves Continue metoprolol succinate 25mg daily (6) Diabetes mellitus: Plan: HbA1c 6.2% Patient is not currently on medications at home DM diet BSG ACHS add basal and/or bolus insulin as necessary (7) Hyperlipidemia: Plan: can resume statin since daptomycin is being stopped (8) Hypotension: Plan: Hold lisinopril, HCTZ BPs improving Cont metoprolol succ (9) Acute metabolic encephalopathy: Plan: likely 2nd to #1, #2 supportive care (10) Cardiomyopathy: Plan: EF 45% on echo 06/24 consider repeat while here holding KELVIN due to COSMO cont meto succ (11) Dizziness: Plan: check orthostatics Plan DVT PPx: Eliquis 2.5mg BID Updated pt's daughter by phone She reports her mother has some mild dementia and currently is a bit more confused than baseline Will ask for PT / OT evals Admission and Anticipated Discharge Date Admission Date: April 18, 2024 Subjective no fevers today reports feeling a little better rash remains but not as itchy sitting in chair by window comfortably during the visit denies dyspnea denies [place] denies chest pain or abd pain eating ok reports dizziness with standing for a few weeks she thinks that led to a fall at home a few weeks ago?? tele overnight - a.fib Review of Systems Review of Systems: gen - no fevers or chills pulm - no cough or congestion GI - no abd pain or N/V skin - no pain over wound right distal arm; denies any obvious tick bites Physical Exam Physical Exam: gen - obese, NAD, sitting in chair skin - diffuse macularpapular erythematous rash on back, torso, chest, arms, upper legs; right distal arm - irregularly shaped ulceration with serous drainage only; there are previously placed demarkation lines present around this area; erythema/cellulitis is fading/retreating neck - no jvd mouth - MM dry heart - irregularly irregular, s1 s2, no murmur; borderline tachy lungs - CTA b/l abd - soft NT ND BS+ ext - pulses 2+ b/l, no edema psych - pleasant confusion musculo - left knee with crepitus with passive ROM but no pain and no deformity; I do not see any cellulitis of the left knee region today Results & Data Results & Data Vital Signs (Past 12 Hours) Vital Signs Temp Pulse Resp BP Pulse Ox O2 Del Method 04/19/24 15:14 36.8 C 102 H 19 115/70 91 Room Air 04/19/24 13:26 89 04/19/24 08:00 Room Air Laboratory Results Laboratory Results - last 24 hr 04/18/24 04/19/24 04/19/24 20:03 07:22 11:04 Sodium Potassium Chloride Carbon Dioxide Anion Gap BUN Creatinine Est Cr Clr Drug Dosing Est GFR ( Amer) Est GFR (Non-Af Amer) BUN/Creatinine Ratio Glucose POC Glucose 282 H 123 H 133 H Calcium 04/19/24 04/19/24 16:10 16:47 Sodium 138 Potassium 3.3 L Chloride 107 Carbon Dioxide 25 Anion Gap 6 BUN 36 H Creatinine 1.50 H D Est Cr Clr Drug Dosing 30.0 Est GFR ( Amer) 38.0 Est GFR (Non-Af Amer) 32.8 BUN/Creatinine Ratio 24.0 H Glucose 138 H POC Glucose 120 H Calcium 8.4 L PG Care Time/CCT Total # of Minutes Spent Total Time Spent with Patient: Total time spent is greater than 50% in coordination of care (as documented) at patient's floor/unit and/or counseling patient: Coding Level of Care Code 58043 SUB INP/OBS CARE 350MIN Diagnoses Right arm cellulitis L03.113 Allergic reaction T78.40XA Encounter type: initial encounter Cellulitis of left knee L03.116 COSMO (acute kidney injury) N17.9 Atrial fibrillation I48.91 Diabetes mellitus E11.9 Hyperlipidemia E78.5 Hypotension I95.9 Acute metabolic encephalopathy G93.41 Cardiomyopathy I42.9 Dizziness R42 (2) Allergic reaction Encounter type: initial encounter Qualified Code(s): T78.40XA - Allergy, unspecified, initial encounter
[2024-04-19] MEDS: POTASSIUM CHLORIDE CRTAB 20 MEQ TABCR PO SCH (18:25)
[2024-04-19] MEDS: FEXOFENADINE 60 MG TAB PO SCH (20:37)
[2024-04-19 22:11] LABS: BUN Creatinine Ratio 21.6 (10-20); Calcium 8.3 mg/dl (8.6-10.3); Creatinine Clr Calc Pharmacy 29.4 ml/min; Est GFR (African American) 37.1 ml/min; Potassium 3.6 mmol/L (3.5-5.1)
[2024-04-19 22:14] LABS: Hematocrit (blood only) 37.2 % (37.0-47.0); Mean Corpuscular Hemoglobin 28.8 pg (25.0-34.0); Mean Corpuscular Hgb Conc 32.3 g/dL (32.0-36.0); Mean Corpuscular Volume 89.2 fL (80.0-100.0); Mean Platelet Volume 10.6 fL (9.4-12.4); Platelet Count 145 K/uL (130-400); RDW Coefficient of Variation 14.1 % (11.5-14.5); Red Blood Count 4.17 M/uL (4.20-5.40)
[2024-04-19 22:31] LABS: Prothrombin Time 10.5 Seconds (9.0-12.0)
[2024-04-20 01:32] LABS: Basophils # (auto) 0.04 K/uL (0.00-0.20); Basophils % (auto) 0.6 %; Eosinophils % (auto) 3.2 %; Immature Granulocytes # (auto) 0.04 K/uL (0.01-0.20); Immature Granulocytes % (auto) 0.6 %; Lymphocytes # (auto) 1.23 K/uL (1.20-3.40); Lymphocytes % (auto) 19.8 %; Monocytes # (auto) 0.58 K/uL (0.11-0.59); Monocytes % (auto) 9.4 %; Neutrophils # (auto) 4.11 K/uL (1.40-6.50); Neutrophils % (auto) 66.4 %; RBC Morphology Unremarkable
[2024-04-20 03:56] LABS: C Reactive Protein 1.27 mg/dl (0-0.5)
[2024-04-20 07:39] LABS: C Reactive Protein 1.12 mg/dl (0-0.5); Calcium 8.2 mg/dl (8.6-10.3); Creatinine Clr Calc Pharmacy 43.6 ml/min; Est GFR (African American) 59.2 ml/min; Est GFR (Non-African American) 51.1 ml/min; Potassium 3.8 mmol/L (3.5-5.1)
[2024-04-20 07:43] LABS: Estimated Average Glucose 131 mg/dl; Hemoglobin A1C 6.2 % (4.5-5.6)
[2024-04-20 08:19] LABS: Hematocrit (blood only) 35.7 % (37.0-47.0); Hemoglobin 11.2 g/dl (12.0-16.0); Mean Corpuscular Hemoglobin 27.9 pg (25.0-34.0); Mean Corpuscular Hgb Conc 31.4 g/dL (32.0-36.0); Mean Platelet Volume 11.1 fL (9.4-12.4); Platelet Count 133 K/uL (130-400); RDW Coefficient of Variation 14.1 % (11.5-14.5); RDW Standard Deviation 46.2 fL (36.4-46.3); Red Blood Count 4.01 M/uL (4.20-5.40); White Blood Count 4.61 K/ul (4.8-10.8)
[2024-04-20 08:30] LABS: ALC (manual) 1.01 K/uL (1.2-3.4); ANC (manual) 2.86 K/uL (1.4-6.5); Basophils # (manual) 0.09 K/uL (0-0.2); Basophils % (manual) 2 %; Eosinophils # (manual) 0.23 K/uL (0-0.50); Eosinophils % (manual) 5 %; Lymphocytes # (manual) 0.88 K/uL (1.2-3.4); Lymphocytes % (manual) 19 %; Monocytes # (manual) 0.41 K/uL (0.11-0.59); Monocytes % (manual) 9 %; Neutrophils # (manual) 2.86 K/uL (1.40-6.50); Neutrophils % (manual) 62 %; Plasma Cells # (manual) 0.14 K/uL (0-0); Plasma Cells % (manual) 3 %; RBC Morphology Unremarkable
[2024-04-20] MEDS: ATORVASTATIN 20 MG TAB PO SCH (09:56)
[2024-04-20] MEDS: APIXABAN 5 MG TABLET PO SCH (09:58)
[2024-04-20] MEDS ORDERED: DAPTOmycin 375 MG in SYRINGE 0 ML IV SCH (13:00)
--- NOTE | 2024-04-20 16:10 | XCELERA ---
[id number] [id number]
[2024-04-20] MEDS: predniSONE 20 MG TAB PO STA (19:27)
--- NOTE | 2024-04-20 19:38 | Hospitalist Progress Note ---
Date of Service April 20, 2024 Assessment & Plan (1) Right arm cellulitis: Plan: In the setting of an ulceration on distal right arm Wound culture performed at [facility] on 04/09/2024 of this ulcer grew MSSA and Enterobacter (resistant to pen G) IMPROVED Had been taking bactrim BID since 04/09/24 Developed apparent drug rxn to the bactrim which has been d/c & added to allergy list Currently on cefepime - day #3 Possibly could change to keflex/doxy or keflex/cipro (former for MSSA, latter for enterobacter) next 1-2 days Will ask wound care to see in consult for wound care recommendations for the ulcer In meantime use aquacel ag with optifoams Follow blood cx's but thus far negative (2) Allergic reaction: Plan: Patient developed facial swelling and itching on 04/17 Followed by diffuse erythematous rash suspect 2nd to bactrim developed COSMO and fevers in this setting - serum sickness? leukocytoclastic vasculitis (some petechiae present on legs)? No evidence of SJS Either way received Solu-Medrol 125 mg IV in the ED at presentation Gave prednisone yesterday Will give prednisone 40mg x 1 again today Cont kirk BID repeat labs am (3) Cellulitis of left knee: Plan: Left knee by report was erythematous upon admission a cellulitis would not have resolved in 24 hours perhaps the erythema was simply inflammation from the recent fall? by report she had no effusion thus gout or CPPD unlikely will cont to monitor carefully x-rays of L knee noted (4) COSMO (acute kidney injury): Plan: Peak creatinine 2.65 (most recent baseline was 0.90 back in 2021), EGFR 16.5 Now 1 resolved due to need for more beta helio cont to hold lisinopril and hydrochlorothiazide (5) Atrial fibrillation: Plan: uncontrolled rates increase meto succ to 25mg BID follow response Continue Eliquis - change dose back to 5mg BID (6) Diabetes mellitus: Plan: HbA1c 6.2% Patient is not currently on medications at home DM diet BSG ACHS add basal and/or bolus insulin as necessary (7) Hyperlipidemia: Plan: cont lipitor (8) Hypotension: Plan: resolved but cont to hold HCTZ & lisinopril due to increase in meto succ dosing (9) Acute metabolic encephalopathy: Plan: likely 2nd to #1, #2 supportive care improved (10) Cardiomyopathy: Plan: EF 45% on echo 06/24 EF today 40-45% a.fib related?? compensated on exam holding KELVIN due to recent COSMO and increase in meto succ should be on Entresto at some point (11) Dizziness: Plan: checked orthostatics - negative pt has not complained of dizziness since admission Plan DVT PPx: Eliquis 5mg BID Updated pt's daughter by phone yesterday and her 2nd daughter today at bedside PT/OT both advise rehab - pt agreeable, family supportive Admission and Anticipated Discharge Date Admission Date: April 18, 2024 Subjective patient reports feeling better today denies any pruritis rash is improving denies any dyspnea eating well did sit in chair for a while today we discussed going for short-term rehab - she is agreeable daughter was at bedside today - she is in support of rehab for her mother last stool 04/18 Review of Systems Review of Systems: gen - no fevers or chills cv - no chest pain, no orthonpea GI - no abd pain or N/V Physical Exam Physical Exam: gen - obese, NAD, laying in bed comfortably skin - diffuse erythematous rash on back, torso, chest, arms, upper legs - IMPROVED today/fading; right distal arm - irregularly shaped ulceration with serous drainage only; there are previously placed demarkation lines present around this area; erythema/cellulitis again improved today; some petechaie on legs today neck - no jvd mouth - MMM heart - irregularly irregular, s1 s2, no murmur; rate 90s lungs - CTA b/l abd - soft NT ND BS+ ext - pulses 2+ b/l, no edema psych - pleasant confusion musculo - left knee with crepitus with passive ROM but no pain and no deformity Results & Data Results & Data Vital Signs (Past 12 Hours) Vital Signs Temp Pulse Resp BP Pulse Ox O2 Del Method 04/20/24 16:57 36.5 C 85 18 164/94 H 94 Room Air 04/20/24 12:10 98 H 20 118/79 94 Room Air 04/20/24 08:10 36.6 C 85 18 127/76 94 Room Air Laboratory Results Laboratory Results - last 24 hr 04/19/24 04/19/24 04/20/24 20:13 21:36 06:06 WBC 6.20 4.61 L RBC 4.17 L 4.01 L Hgb 12.0 11.2 L Hct 37.2 35.7 L MCV 89.2 89.0 MCH 28.8 27.9 MCHC 32.3 31.4 L RDW Std Deviation 46.0 46.2 RDW Coeff of Nikkie 14.1 14.1 Plt Count 145 133 MPV 10.6 11.1 Immature Gran % (Auto) 0.6 Neut % (Auto) 66.4 Lymph % (Auto) 19.8 [place] % (Auto) 9.4 Eos % (Auto) 3.2 Baso % (Auto) 0.6 Neut # (Auto) 4.11 Lymph # (Auto) 1.23 [place] # (Auto) 0.58 Eos # (Auto) 0.20 Baso # (Auto) 0.04 Immature Gran # (Auto) 0.04 Neutrophils % (Manual) 62 Lymphocytes % (Manual) 19 Monocytes % (Manual) 9 Eosinophils % (Manual) 5 Basophils % (Manual) 2 Plasma Cell % (Manual) 3 Neutrophils # (Manual) 2.86 Total Absolute Neuts 2.86 Lymphocytes # (Manual) 0.88 L Total Abs Lymphocytes 1.01 L Monocytes # (Manual) 0.41 Eosinophils # (Manual) 0.23 Basophils # (Manual) 0.09 Plasma Cell # (Manual) 0.14 H RBC Morphology Unremarkable Unremarkable PT 10.5 INR 1.0 Sodium 136 141 Potassium 3.6 3.8 Chloride 107 111 H Carbon Dioxide 23 25 Anion Gap 6 5 BUN 33 H 26 H Creatinine 1.53 H 1.04 D Est Cr Clr Drug Dosing 29.4 43.6 Est GFR ( Amer) 37.1 59.2 Est GFR (Non-Af Amer) 32.0 51.1 BUN/Creatinine Ratio 21.6 H 25.0 H Glucose 124 H 87 POC Glucose 145 H Estimat Average Glucose 131 Hemoglobin A1c 6.2 H Calcium 8.3 L 8.2 L C-Reactive Protein 1.27 H 1.12 H 04/20/24 04/20/24 07:39 11:03 WBC RBC Hgb Hct MCV MCH MCHC RDW Std Deviation RDW Coeff of Nikkie Plt Count MPV Immature Gran % (Auto) Neut % (Auto) Lymph % (Auto) [place] % (Auto) Eos % (Auto) Baso % (Auto) Neut # (Auto) Lymph # (Auto) [place] # (Auto) Eos # (Auto) Baso # (Auto) Immature Gran # (Auto) Neutrophils % (Manual) Lymphocytes % (Manual) Monocytes % (Manual) Eosinophils % (Manual) Basophils % (Manual) Plasma Cell % (Manual) Neutrophils # (Manual) Total Absolute Neuts Lymphocytes # (Manual) Total Abs Lymphocytes Monocytes # (Manual) Eosinophils # (Manual) Basophils # (Manual) Plasma Cell # (Manual) RBC Morphology PT INR Sodium Potassium Chloride Carbon Dioxide Anion Gap BUN Creatinine Est Cr Clr Drug Dosing Est GFR ( Amer) Est GFR (Non-Af Amer) BUN/Creatinine Ratio Glucose POC Glucose 84 109 H Estimat Average Glucose Hemoglobin A1c Calcium C-Reactive Protein Diagnostic Findings Microbiology 04/18/24 12:34 Blood Aerobic Blood Culture - Preliminary No growth in Aerobic bottle after 48 hours. 04/18/24 12:34 Blood Anaerobic Blood Culture - Preliminary No growth in Anaerobic bottle after 48 hours. 04/18/24 12:13 Blood Aerobic Blood Culture - Preliminary No growth in Aerobic bottle after 48 hours. 04/18/24 12:13 Blood Anaerobic Blood Culture - Preliminary No growth in Anaerobic bottle after 48 hours. 04/18/24 12:34 Urine,Clean Catch Urine Culture - Final Gram positive cocci PG Care Time/CCT Total # of Minutes Spent Total Time Spent with Patient: Total time spent is greater than 50% in coordination of care (as documented) at patient's floor/unit and/or counseling patient: Coding Level of Care Code 11004 SUB INP/OBS CARE 3/50MIN Diagnoses Right arm cellulitis L03.113 Allergic reaction T78.40XA Encounter type: initial encounter Cellulitis of left knee L03.116 COSMO (acute kidney injury) N17.9 Atrial fibrillation I48.91 Diabetes mellitus E11.9 Hyperlipidemia E78.5 Hypotension I95.9 Acute metabolic encephalopathy G93.41 Cardiomyopathy I42.9 Dizziness R42 (2) Allergic reaction Encounter type: initial encounter Qualified Code(s): T78.40XA - Allergy, unspecified, initial encounter
[2024-04-20] MEDS: METOPROLOL SUCC 25MG EXT REL TAB PO SCH (20:32)
[2024-04-21 07:20] LABS: Hematocrit (blood only) 37.8 % (37.0-47.0); Hemoglobin 12.3 g/dl (12.0-16.0); Mean Corpuscular Hemoglobin 28.9 pg (25.0-34.0); Mean Corpuscular Hgb Conc 32.5 g/dL (32.0-36.0); Mean Corpuscular Volume 88.9 fL (80.0-100.0); Mean Platelet Volume 10.5 fL (9.4-12.4); Platelet Count 148 K/uL (130-400); RDW Coefficient of Variation 13.8 % (11.5-14.5); RDW Standard Deviation 45.3 fL (36.4-46.3); Red Blood Count 4.25 M/uL (4.20-5.40); White Blood Count 3.94 K/ul (4.8-10.8)
[2024-04-21 07:42] LABS: Basophils # (auto) 0.01 K/uL (0.00-0.20); Basophils % (auto) 0.3 %; Eosinophils # (auto) 0.01 K/uL (0.00-0.50); Eosinophils % (auto) 0.3 %; Immature Granulocytes # (auto) 0.03 K/uL (0.01-0.20); Immature Granulocytes % (auto) 0.8 %; Lymphocytes # (auto) 0.73 K/uL (1.20-3.40); Lymphocytes % (auto) 18.5 %; Monocytes # (auto) 0.19 K/uL (0.11-0.59); Monocytes % (auto) 4.8 %; Neutrophils # (auto) 2.97 K/uL (1.40-6.50); Neutrophils % (auto) 75.3 %; RBC Morphology Unremarkable
[2024-04-21 07:46] LABS: BUN Creatinine Ratio 30.8 (10-20); Calcium 9.1 mg/dl (8.6-10.3); Est GFR (African American) 83.8 ml/min; Est GFR (Non-African American) 72.3 ml/min; Potassium 4.3 mmol/L (3.5-5.1)
[2024-04-21] MEDS: predniSONE 20 MG TAB PO STA (08:46)
[2024-04-21 10:28] LABS: Echinocytes 1+; Polychromasia 1+; Tear Drop Cells 1+
--- NOTE | 2024-04-21 18:27 | Hospitalist Progress Note ---
Date of Service April 21, 2024 Assessment & Plan (1) Right arm cellulitis: Plan: In the setting of an ulceration on distal right arm Wound culture performed at [facility] on 04/09/2024 of this ulcer grew MSSA and Enterobacter (resistant to pen G) IMPROVED albeit slowly Had been taking bactrim BID since 04/09/24 Developed apparent drug rxn to the bactrim which has been d/c & added to allergy list Currently on cefepime - day #4 Possibly could change to keflex/doxy or keflex/cipro (former for MSSA, latter for enterobacter) next 1-2 days Will ask wound care to see in consult for wound care recommendations for the ulcer In meantime use aquacel ag with optifoams Follow blood cx's - they remain negative (2) Allergic reaction: Plan: Patient developed facial swelling and itching on 04/17 Followed by diffuse erythematous rash suspect 2nd to bactrim developed COSMO and fevers in this setting - serum sickness? leukocytoclastic vasculitis (some petechiae present on legs)? No evidence of SJS Either way received Solu-Medrol 125 mg IV in the ED at presentation Gave prednisone yesterday; give again today - 40 mg Cont kirk BID repeat labs am (3) Cellulitis of left knee: Plan: RULED OUT Left knee by report was erythematous upon admission a cellulitis would not have resolved in 24 hours perhaps the erythema was simply inflammation from the recent fall? by report she had no effusion thus gout or CPPD unlikely will cont to monitor carefully x-rays of L knee noted (4) COSMO (acute kidney injury): Plan: Peak creatinine 2.65 (most recent baseline was 0.90 back in 2021), EGFR 16.5 Now <1 resolved due to need for more beta helio and for ultimate addition of Entresto -- cont to hold lisinopril and hydrochlorothiazide (5) Atrial fibrillation: Plan: improving rate control with increase in meto succ to 25mg BID Continue Eliquis 5mg BID (6) Diabetes mellitus: Plan: HbA1c 6.2% Patient is not currently on medications at home DM diet BSG ACHS add basal and/or bolus insulin as necessary (7) Hyperlipidemia: Plan: cont lipitor (8) Hypotension: Plan: present on admission resolved (9) Acute metabolic encephalopathy: Plan: likely 2nd to #1, #2 this is in the setting of baseline dementia (family reports she has baseline dementia) supportive care add melatonin HS (10) Cardiomyopathy: Plan: EF 45% on echo 06/24 EF this admission 40-45% a.fib related?? compensated on exam holding KELVIN due to recent COSMO and increase in meto succ should be on Entresto at some point - consider starting tomorrow (11) Dizziness: Plan: checked orthostatics - negative pt has not complained of dizziness since admission Plan DVT PPx: Eliquis 5mg BID Updated pt's 2 daughters this week either by phone or in person at bedside Updated pt's daughter by phone this evening PT/OT both advise rehab - pt agreeable, family supportive Admission and Anticipated Discharge Date Admission Date: April 18, 2024 Subjective tele - a.fib, most rates <100 (at rest) denies any itching denies any pain in any location denies dyspnea or orthopnea she was pleasantly confused during the visit - she said "I've been really busy today doing all sorts of things" eating well +stool 04/18 Review of Systems Review of Systems: cv - no chest pain pulm - no cough GI - no abd pain or N/V Physical Exam Physical Exam: gen - obese, NAD, laying flat in bed comfortably skin - erythematous rash on back, torso, chest, arms, upper legs - again IMPROVED today/fading, especially on chest/back; right distal arm - irregularly shaped ulceration with serous drainage only; there are previously placed demarka tion lines present around this area; erythema/cellulitis fading; petechiae on legs nearly resolved neck - no jvd mouth - MMM heart - irregularly irregular, s1 s2, no murmur; rate 90s lungs - CTA b/l abd - soft NT ND BS+ ext - pulses 2+ b/l, no edema psych - pleasant confusion Results & Data Results & Data Vital Signs (Past 12 Hours) Vital Signs Temp Pulse Resp BP Pulse Ox O2 Del Method 04/21/24 16:03 36.6 C 82 18 158/101 H 93 Room Air 04/21/24 11:57 36.6 C 77 20 167/103 H 97 Room Air 04/21/24 07:44 36.6 C 102 H 16 149/117 H 95 Room Air Laboratory Results Laboratory Results - last 24 hr 04/20/24 04/21/24 04/21/24 20:32 06:33 07:40 WBC 3.94 L RBC 4.25 Hgb 12.3 Hct 37.8 MCV 88.9 MCH 28.9 MCHC 32.5 RDW Std Deviation 45.3 RDW Coeff of Nikkie 13.8 Plt Count 148 MPV 10.5 Immature Gran % (Auto) 0.8 Neut % (Auto) 75.3 Lymph % (Auto) 18.5 [place] % (Auto) 4.8 Eos % (Auto) 0.3 Baso % (Auto) 0.3 Neut # (Auto) 2.97 Lymph # (Auto) 0.73 L [place] # (Auto) 0.19 Eos # (Auto) 0.01 Baso # (Auto) 0.01 Immature Gran # (Auto) 0.03 RBC Morphology Unremarkable Polychromasia 1+ Tear Drop Cells 1+ Echinocytes 1+ Sodium 140 Potassium 4.3 Chloride 109 H Carbon Dioxide 26 Anion Gap 5 BUN 24 H Creatinine 0.78 Est Cr Clr Drug Dosing 58.0 Est GFR ( Amer) 83.8 Est GFR (Non-Af Amer) 72.3 BUN/Creatinine Ratio 30.8 H Glucose 143 H POC Glucose 125 H 138 H Calcium 9.1 Anaplasma Smear See Comment 04/21/24 04/21/24 11:17 16:24 WBC RBC Hgb Hct MCV MCH MCHC RDW Std Deviation RDW Coeff of Nikkie Plt Count MPV Immature Gran % (Auto) Neut % (Auto) Lymph % (Auto) [place] % (Auto) Eos % (Auto) Baso % (Auto) Neut # (Auto) Lymph # (Auto) [place] # (Auto) Eos # (Auto) Baso # (Auto) Immature Gran # (Auto) RBC Morphology Polychromasia Tear Drop Cells Echinocytes Sodium Potassium Chloride Carbon Dioxide Anion Gap BUN Creatinine Est Cr Clr Drug Dosing Est GFR ( Amer) Est GFR (Non-Af Amer) BUN/Creatinine Ratio Glucose POC Glucose 115 H 155 H Calcium Anaplasma Smear PG Care Time/CCT Total # of Minutes Spent Total Time Spent with Patient: Total time spent is greater than 50% in coordination of care (as documented) at patient's floor/unit and/or counseling patient: Coding Level of Care Code 81393 SUB INP/OBS CARE 2/35MIN Diagnoses Right arm cellulitis L03.113 Allergic reaction T78.40XA Encounter type: initial encounter Cellulitis of left knee L03.116 COSMO (acute kidney injury) N17.9 Atrial fibrillation I48.91 Diabetes mellitus E11.9 Hyperlipidemia E78.5 Hypotension I95.9 Acute metabolic encephalopathy G93.41 Cardiomyopathy I42.9 Dizziness R42 (2) Allergic reaction Encounter type: initial encounter Qualified Code(s): T78.40XA - Allergy, unspecified, initial encounter
[2024-04-21] MEDS: MELATONIN 3 MG TAB PO SCH (20:29)
[2024-04-22 06:12] LABS: Basophils # (auto) 0.05 K/uL (0.00-0.20); Basophils % (auto) 0.6 %; Eosinophils # (auto) 0.02 K/uL (0.00-0.50); Eosinophils % (auto) 0.2 %; Hematocrit (blood only) 34.8 % (37.0-47.0); Hemoglobin 11.4 g/dl (12.0-16.0); Immature Granulocytes # (auto) 0.04 K/uL (0.01-0.20); Immature Granulocytes % (auto) 0.5 %; Lymphocytes # (auto) 1.43 K/uL (1.20-3.40); Lymphocytes % (auto) 17.5 %; Mean Corpuscular Hemoglobin 28.6 pg (25.0-34.0); Mean Corpuscular Hgb Conc 32.8 g/dL (32.0-36.0); Mean Corpuscular Volume 87.4 fL (80.0-100.0); Mean Platelet Volume 10.7 fL (9.4-12.4); Monocytes # (auto) 0.85 K/uL (0.11-0.59); Monocytes % (auto) 10.4 %; Neutrophils # (auto) 5.78 K/uL (1.40-6.50); Neutrophils % (auto) 70.8 %; Platelet Count 204 K/uL (130-400); RDW Coefficient of Variation 13.5 % (11.5-14.5); RDW Standard Deviation 42.6 fL (36.4-46.3); Red Blood Count 3.98 M/uL (4.20-5.40); White Blood Count 8.17 K/ul (4.8-10.8)
[2024-04-22 06:39] LABS: BUN Creatinine Ratio 28.7 (10-20); Calcium 9.2 mg/dl (8.6-10.3); Creatinine Clr Calc Pharmacy 52.1 ml/min; Est GFR (African American) 73.4 ml/min; Est GFR (Non-African American) 63.4 ml/min; Potassium 3.7 mmol/L (3.5-5.1)
[2024-04-22] MEDS: POLYETHYLENE (MIRALAX) 17 GM PACK PO SCH (11:09)
[2024-04-22] MEDS: predniSONE 10 MG TABLET PO STA (11:09)
[2024-04-22] MEDS: VALSARTAN/SACUBITRIL 26/24MG TAB PO SCH (11:21)
[2024-04-22] MEDS: SENNA 8.6 MG TAB PO SCH (11:21)
--- NOTE | 2024-04-22 17:32 | Hospitalist Progress Note ---
Date of Service April 22, 2024 Assessment & Plan (1) Right arm cellulitis: Plan: In the setting of an ulceration on distal right arm Wound culture performed at [facility] on 04/09/2024 of this ulcer grew MSSA and Enterobacter Continues to improve Had been taking bactrim BID since 04/09/24 Developed drug rxn to the bactrim which has been d/c & added to allergy list Currently on cefepime - day #5 Given ongoing improvement can change to keflex/cipro (former for MSSA, latter for enterobacter) tonight, plan 5 days of each Enterobacter was sens to cipro Appreciate wound care consult * Aquacel ag with optifoam Blood cx's negative (2) Allergic reaction: Plan: Patient developed facial swelling and itching on 04/17 while taking bactrim This was followed by diffuse erythematous rash developed COSMO and fevers in this setting - serum sickness? leukocytoclastic vasculitis (some petechiae present on legs)? No evidence of SJS Either way received Solu-Medrol 125 mg IV in the ED at presentation Then received PO prednisone since then Yesterday received 40mg; give 30mg today; then 20mg tomorrow Rash continues to improve and is nearly resolved in multiple areas No pruritis - can stop kirk (3) Cellulitis of left knee: Plan: RULED OUT Left knee by report was erythematous upon admission a cellulitis would not have resolved in 24 hours perhaps the erythema was simply inflammation from the recent fall? by report she had no effusion thus gout or CPPD unlikely will cont to monitor carefully x-rays of L knee noted (4) COSMO (acute kidney injury): Plan: Peak creatinine 2.65 (most recent baseline was 0.90 back in 2021), EGFR 16.5 Now <1 resolved (5) Atrial fibrillation: Plan: improved rate control with increase in meto succ to 25mg BID rates today with walking - low 100s at most Continue Eliquis 5mg BID (6) Diabetes mellitus: Plan: HbA1c 6.2% Patient is not currently on medications at home Cont DM diet BSG ACHS (7) Hyperlipidemia: Plan: cont lipitor (8) Hypotension: Plan: present on admission resolved (9) Acute metabolic encephalopathy: Plan: likely 2nd to #1, #2 this is in the setting of baseline dementia (family reports she has baseline dementia) had significant sundowning last pm cont melatonin 3mg HS add zyprexa 2.5mg HS recent EKG with normal QTc (10) Cardiomyopathy: Plan: EF 45% on echo 06/24 EF this admission 40-45% a.fib related?? compensated KELVIN had been d/c due to recent COSMO should be on Entresto -- it has been 3+ days since she had taken lisinopril - thus start low-dose Entresto BID today (11) Dizziness: Plan: checked orthostatics - negative pt has not complained of dizziness since admission Plan DVT PPx: Eliquis 5mg BID Updated pt's 2 daughters this week either by phone or in person at bedside Updated pt's daughter by phone yesterday evening PT/OT both advise rehab - referrals have been made check BMP am Admission and Anticipated Discharge Date Admission Date: April 18, 2024 Subjective per staff -- was up most of the night last pm confused during the night today - ongoing confusion, impulsive, etc during my visit she said "where is my social security card?" no complaint of pruritis no dyspnea no [place] no abd pain or N/V Review of Systems Review of Systems: gen - no fevers or chills cv - no chest pain pulm - no cough Physical Exam Physical Exam: gen - obese, NAD, sitting in chair skin - erythematous rash on back, torso, chest, arms, upper legs - nearly resolved in some areas; faint at this point in most locations; right distal arm - irregularly shaped ulceration with no drainage only; there are previously placed demarkation lines present around this area; erythema/cellulitis significantly resolved; petechiae on legs resolved neck - no JVD mouth - MMM, no thrush heart - irregularly irregular, s1 s2, no murmur lungs - CTA b/l abd - soft NT ND BS+ ext - pulses 2+ b/l, no edema psych - pleasant confusion mostly, occasional agitation Results & Data Results & Data Vital Signs (Past 12 Hours) Vital Signs Temp Pulse Pulse Resp BP Pulse Ox Pulse Ox 04/22/24 16:00 91 04/22/24 14:14 36.9 C 84 18 132/94 91 04/22/24 13:00 91 04/22/24 13:00 80 04/22/24 11:43 36.5 C 81 20 142/87 H 96 04/22/24 08:07 36.6 C 73 18 142/91 H 95 O2 Del Method O2 Del Method 04/22/24 16:00 Room Air 04/22/24 14:14 Room Air 04/22/24 13:00 04/22/24 13:00 04/22/24 11:43 Room Air 04/22/24 08:07 Room Air Laboratory Results Laboratory Results - last 24 hr 04/22/24 04/22/24 04/22/24 05:16 07:20 11:11 WBC 8.17 RBC 3.98 L Hgb 11.4 L Hct 34.8 L MCV 87.4 MCH 28.6 MCHC 32.8 RDW Std Deviation 42.6 RDW Coeff of [place] 13.5 Plt Count 204 MPV 10.7 Immature Gran % (Auto) 0.5 Neut % (Auto) 70.8 Lymph % (Auto) 17.5 [place] % (Auto) 10.4 Eos % (Auto) 0.2 Baso % (Auto) 0.6 Neut # (Auto) 5.78 Lymph # (Auto) 1.43 [place] # (Auto) 0.85 H Eos # (Auto) 0.02 Baso # (Auto) 0.05 Immature Gran # (Auto) 0.04 Sodium 140 Potassium 3.7 Chloride 108 H Carbon Dioxide 25 Anion Gap 7 BUN 25 H Creatinine 0.87 Est Cr Clr Drug Dosing 52.1 Est GFR ( Amer) 73.4 Est GFR (Non-Af Amer) 63.4 BUN/Creatinine Ratio 28.7 H Glucose 108 H POC Glucose 103 H 113 H Calcium 9.2 A. phagocytophilum DNA Pending Lyme Disease Screen Negative 04/22/24 04/22/24 16:24 20:08 WBC RBC Hgb Hct MCV MCH MCHC RDW Std Deviation RDW Coeff of Nikkie Plt Count MPV Immature Gran % (Auto) Neut % (Auto) Lymph % (Auto) [place] % (Auto) Eos % (Auto) Baso % (Auto) Neut # (Auto) Lymph # (Auto) [place] # (Auto) Eos # (Auto) Baso # (Auto) Immature Gran # (Auto) Sodium Potassium Chloride Carbon Dioxide Anion Gap BUN Creatinine Est Cr Clr Drug Dosing Est GFR ( Amer) Est GFR (Non-Af Amer) BUN/Creatinine Ratio Glucose POC Glucose 232 H 163 H Calcium A. phagocytophilum DNA Lyme Disease Screen PG Care Time/CCT Total # of Minutes Spent Total Time Spent with Patient: Total time spent is greater than 50% in coordination of care (as documented) at patient's floor/unit and/or counseling patient: Coding Level of Care Code 54938 SUB INP/OBS CARE 3/50MIN Diagnoses Right arm cellulitis L03.113 Allergic reaction T78.40XA Encounter type: initial encounter Cellulitis of left knee L03.116 COSMO (acute kidney injury) N17.9 Atrial fibrillation I48.91 Diabetes mellitus E11.9 Hyperlipidemia E78.5 Hypotension I95.9 Acute metabolic encephalopathy G93.41 Cardiomyopathy I42.9 Dizziness R42 (2) Allergic reaction Encounter type: initial encounter Qualified Code(s): T78.40XA - Allergy, unspecified, initial encounter
[2024-04-22] MEDS: CIPROFLOXACIN 500 MG TAB PO SCH (20:12)
[2024-04-22] MEDS: cephALEXin 500 MG CAP PO SCH (20:12)
[2024-04-22] MEDS: OLANZAPINE 2.5 MG TAB PO SCH (20:50)
[2024-04-23] MEDS: predniSONE 20 MG TAB PO ONE (09:43)
[2024-04-23 11:12] LABS: Calcium 9.9 mg/dl (8.6-10.3); Potassium 3.9 mmol/L (3.5-5.1)
[2024-04-23 11:18] LABS: Creatinine Clr Calc Pharmacy 41.8 ml/min; Est GFR (African American) 62.1 ml/min; Est GFR (Non-African American) 53.5 ml/min
--- NOTE | 2024-04-23 20:51 | Hospitalist Progress Note ---
Date of Service April 23, 2024 Assessment & Plan (1) Right arm cellulitis: Plan: In the setting of an ulceration on distal right arm Wound culture performed at [facility] on 04/09/2024 of this ulcer grew MSSA and Enterobacter Continues to improve Had been taking bactrim BID since 04/09/24 Developed drug rxn to the bactrim which has been d/c & added to allergy list Currently on cefepime - day #5 Given ongoing improvement can change to keflex/cipro (former for MSSA, latter for enterobacter) tonight, plan 5 days of each Enterobacter was sens to cipro Appreciate wound care consult * Aquacel ag with optifoam Blood cx's negative (2) Allergic reaction: Plan: Patient developed facial swelling and itching on 04/17 while taking bactrim This was followed by diffuse erythematous rash developed COSMO and fevers in this setting - serum sickness? leukocytoclastic vasculitis (some petechiae present on legs)? No evidence of SJS Either way received Solu-Medrol 125 mg IV in the ED at presentation Then received PO prednisone since then Yesterday received 40mg; give 30mg today; then 20mg tomorrow Rash continues to improve and is nearly resolved in multiple areas No pruritis - can stop kirk Anticipate discharge in next 24 hours. (3) Cellulitis of left knee: Plan: RULED OUT Left knee by report was erythematous upon admission a cellulitis would not have resolved in 24 hours perhaps the erythema was simply inflammation from the recent fall? by report she had no effusion thus gout or CPPD unlikely will cont to monitor carefully x-rays of L knee noted (4) COSMO (acute kidney injury): Plan: Peak creatinine 2.65 (most recent baseline was 0.90 back in 2021), EGFR 16.5 Now <1 resolved (5) Atrial fibrillation: Plan: improved rate control with increase in meto succ to 25mg BID rates today with walking - low 100s at most Continue Eliquis 5mg BID (6) Diabetes mellitus: Plan: HbA1c 6.2% Patient is not currently on medications at home Cont DM diet BSG ACHS (7) Hyperlipidemia: Plan: cont lipitor (8) Hypotension: Plan: present on admission resolved (9) Acute metabolic encephalopathy: Plan: likely 2nd to #1, #2 this is in the setting of baseline dementia (family reports she has baseline dementia) had significant sundowning last pm cont melatonin 3mg HS add zyprexa 2.5mg HS recent EKG with normal QTc (10) Cardiomyopathy: Plan: EF 45% on echo 06/24 EF this admission 40-45% a.fib related?? compensated KELVIN had been d/c due to recent COSMO should be on Entresto -- it has been 3+ days since she had taken lisinopril - thus now on low-dose Entresto BID (11) Dizziness: Plan: checked orthostatics - negative pt has not complained of dizziness since admission Plan DVT PPx: Eliquis 5mg BID PT/OT both advise rehab - referrals have been made Admission and Anticipated Discharge Date Admission Date: April 18, 2024 Subjective Patient reports no new symptoms. Review of Systems Review of Systems: All systems reviewed & are unremarkable except as noted in HPI & below Physical Exam Physical Exam: Constitutional- obese, NAD, sitting in chair skin - erythematous rash on back, torso, chest, arms, upper legs - appears resolved; very faint at this point in most locations; right distal arm - irregularly shaped ulceration with no drainage only; there are previously placed demarkation lines present around this area; erythema/cellulitis significantly resolved; petechiae on legs resolved HEENT - no JVD, MMM, no thrush Heart - irregularly irregular, s1 s2, no murmur Lungs - CTA b/l Abd - soft NT ND BS+ Ext - pulses 2+ b/l, no edema Psych - pleasant, but confused Results & Data Results & Data Vital Signs (Past 12 Hours) Vital Signs Temp Pulse Pulse Resp BP Pulse Ox O2 Del Method 04/23/24 19:26 36.6 C 84 18 134/85 96 Room Air 04/23/24 16:28 36.6 C 86 18 136/92 92 Room Air 04/23/24 16:22 81 04/23/24 11:47 36.6 C 91 H 20 135/81 92 Room Air PG Care Time/CCT Total # of Minutes Spent Total Time Spent with Patient: Total time spent is greater than 50% in coordination of care (as documented) at patient's floor/unit and/or counseling patient: Coding Level of Care Code 57887 SUB INP/OBS CARE 2/35MIN Diagnoses Right arm cellulitis L03.113 Allergic reaction T78.40XA Encounter type: initial encounter Cellulitis of left knee L03.116 COSMO (acute kidney injury) N17.9 Atrial fibrillation I48.91 Diabetes mellitus E11.9 Hyperlipidemia E78.5 Hypotension I95.9 Acute metabolic encephalopathy G93.41 Cardiomyopathy I42.9 Dizziness R42 (2) Allergic reaction Encounter type: initial encounter Qualified Code(s): T78.40XA - Allergy, unspecified, initial encounter
[2024-04-24 06:13] LABS: Hemoglobin 11.7 g/dl (12.0-16.0); Mean Corpuscular Hemoglobin 28.7 pg (25.0-34.0); Mean Corpuscular Hgb Conc 32.5 g/dL (32.0-36.0); Mean Corpuscular Volume 88.5 fL (80.0-100.0); Mean Platelet Volume 9.6 fL (9.4-12.4); Platelet Count 243 K/uL (130-400); RDW Coefficient of Variation 13.9 % (11.5-14.5); RDW Standard Deviation 44.5 fL (36.4-46.3); Red Blood Count 4.07 M/uL (4.20-5.40)
[2024-04-24 06:25] LABS: BUN Creatinine Ratio 28.8 (10-20); Calcium 9.1 mg/dl (8.6-10.3); Creatinine Clr Calc Pharmacy 40.2 ml/min; Est GFR (African American) 59.2 ml/min; Est GFR (Non-African American) 51.1 ml/min; Potassium 3.9 mmol/L (3.5-5.1)
[2024-04-24] MEDS: ADVANCED PROBIOTIC 625 MG CAPSULE PO SCH (07:21)
--- NOTE | 2024-04-24 17:43 | Hospitalist Progress Note ---
Date of Service April 24, 2024 Assessment & Plan (1) Right arm cellulitis: Plan: In the setting of an ulceration on distal right arm Wound culture performed at [facility] on 04/09/2024 of this ulcer grew MSSA and Enterobacter Continues to improve Had been taking bactrim BID since 04/09/24 Developed drug rxn to the bactrim which has been d/c & added to allergy list Currently on cefepime - day #5 Given ongoing improvement can change to keflex/cipro (former for MSSA, latter for enterobacter) tonight, plan 5 days of each Enterobacter was sens to cipro Appreciate wound care consult * Aquacel ag with optifoam Blood cx's negative Awaiting placement. Insurance auth is pending. (2) Allergic reaction: Plan: Patient developed facial swelling and itching on 04/17 while taking bactrim This was followed by diffuse erythematous rash developed COSMO and fevers in this setting - serum sickness? leukocytoclastic vasculitis (some petechiae present on legs)? No evidence of SJS Either way received Solu-Medrol 125 mg IV in the ED at presentation Then received PO prednisone since then Yesterday received 40mg; give 30mg today; then 20mg tomorrow Rash continues to improve and is nearly resolved in multiple areas No pruritis - can stop kirk Anticipate discharge in next 24 hours. Insurance auth is pending. (3) Cellulitis of left knee: Plan: RULED OUT Left knee by report was erythematous upon admission a cellulitis would not have resolved in 24 hours perhaps the erythema was simply inflammation from the recent fall? by report she had no effusion thus gout or CPPD unlikely will cont to monitor carefully x-rays of L knee noted (4) COSMO (acute kidney injury): Plan: Peak creatinine 2.65 (most recent baseline was 0.90 back in 2021), EGFR 16.5 Now <1 resolved (5) Atrial fibrillation: Plan: improved rate control with increase in meto succ to 25mg BID rates today with walking - low 100s at most Continue Eliquis 5mg BID (6) Diabetes mellitus: Plan: HbA1c 6.2% Patient is not currently on medications at home Cont DM diet BSG ACHS (7) Hyperlipidemia: Plan: cont lipitor (8) Hypotension: Plan: present on admission resolved (9) Acute metabolic encephalopathy: Plan: likely 2nd to #1, #2 this is in the setting of baseline dementia (family reports she has baseline dementia) had significant sundowning last pm cont melatonin 3mg HS add zyprexa 2.5mg HS recent EKG with normal QTc (10) Cardiomyopathy: Plan: EF 45% on echo 06/24 EF this admission 40-45% a.fib related?? compensated KELVIN had been d/c due to recent COSMO should be on Entresto -- it has been 3+ days since she had taken lisinopril - thus now on low-dose Entresto BID (11) Dizziness: Plan: checked orthostatics - negative pt has not complained of dizziness since admission Plan DVT PPx: Eliquis 5mg BID PT/OT both advise rehab - referrals have been made Admission and Anticipated Discharge Date Admission Date: April 18, 2024 Subjective Patient reports no new symptoms. Review of Systems Review of Systems: All systems reviewed & are unremarkable except as noted in HPI & below Physical Exam Physical Exam: Constitutional- obese, NAD, sitting in chair skin - erythematous rash on back, torso, chest, arms, upper legs - appears resolved; very faint at this point in most locations; right distal arm - irregularly shaped ulceration with no drainage only; there are previously placed demarkation lines present around this area; erythema/cellulitis significantly resolved; petechiae on legs resolved HEENT - no JVD, MMM, no thrush Heart - irregularly irregular, s1 s2, no murmur Lungs - CTA b/l Abd - soft NT ND BS+ Ext - pulses 2+ b/l, no edema Psych - pleasant, but confused Results & Data Results & Data Vital Signs (Past 12 Hours) Vital Signs Temp Pulse Pulse Resp BP Pulse Ox O2 Del Method 04/24/24 16:36 78 04/24/24 15:09 37.0 C 69 18 147/84 H 98 Room Air 04/24/24 10:53 36.3 C L 56 L 17 125/71 97 Room Air 04/24/24 07:33 66 04/24/24 07:23 36.8 C 83 17 137/81 94 Room Air PG Care Time/CCT Total # of Minutes Spent Total Time Spent with Patient: Total time spent is greater than 50% in coordination of care (as documented) at patient's floor/unit and/or counseling patient: Coding Level of Care Code 53189 SUB INP/OBS CARE MIN Diagnoses Right arm cellulitis L03.113 Allergic reaction T78.40XA Encounter type: initial encounter Cellulitis of left knee L03.116 COSMO (acute kidney injury) N17.9 Atrial fibrillation I48.91 Diabetes mellitus E11.9 Hyperlipidemia E78.5 Hypotension I95.9 Acute metabolic encephalopathy G93.41 Cardiomyopathy I42.9 Dizziness R42 (2) Allergic reaction Encounter type: initial encounter Qualified Code(s): T78.40XA - Allergy, unspecified, initial encounter
--- NOTE | 2024-04-28 22:07 | Discharge Summary ---
Discharge Summary Date of Service April 25, 2024 Principal Dx & Hospital Course #1 = Principal Diagnosis (1) Right arm cellulitis: In the setting of an ulceration on distal right arm Wound culture performed at [facility] on 04/09/2024 of this ulcer grew MSSA and Enterobacter improved with antibiotics Had been taking bactrim BID since 04/09/24 Developed drug rxn to the bactrim which has been d/c & added to allergy list on cefepime - day #5 Given ongoing improvement will change to keflex/cipro (former for MSSA, latter for enterobacter), plan 5 days of each Enterobacter was sens to cipro Appreciate wound care consult * Aquacel ag with optifoam Blood cx's negative Aw (2) Allergic reaction: Patient developed facial swelling and itching on 04/17 while taking bactrim This was followed by diffuse erythematous rash developed COSMO and fevers in this setting - serum sickness? leukocytoclastic vasculitis (some petechiae present on legs)? No evidence of SJS Either way received Solu-Medrol 125 mg IV in the ED at presentation Then received PO prednisone since then Yesterday received 40mg; give 30mg today; then 20mg tomorrow Rash continues to improve and is nearly resolved in multiple areas No pruritis - can stop kirk A (3) Cellulitis of left knee: RULED OUT Left knee by report was erythematous upon admission a cellulitis would not have resolved in 24 hours perhaps the erythema was simply inflammation from the recent fall? by report she had no effusion thus gout or CPPD unlikely x-rays of L knee noted (4) COSMO (acute kidney injury): Peak creatinine 2.65 (most recent baseline was 0.90 back in 2021), EGFR 16.5 Now <1 resolved (5) Atrial fibrillation: improved rate control with increase in meto succ to 25mg BID rates today with walking - low 100s at most Continue Eliquis 5mg BID (6) Diabetes mellitus: HbA1c 6.2% Patient is not currently on medications at home Cont DM diet BSG ACHS (7) Hyperlipidemia: cont lipitor (8) Hypotension: present on admission resolved (9) Acute metabolic encephalopathy: likely 2nd to #1, #2 this is in the setting of baseline dementia (family reports she has baseline dementia) had significant sundowning last pm cont melatonin 3mg HS add zyprexa 2.5mg HS recent EKG with normal QTc (10) Cardiomyopathy: EF 45% on echo 06/24 EF this admission 40-45% a.fib related?? compensated KELVIN had been d/c due to recent COSMO should be on Entresto -- it has been 3+ days since she had taken lisinopril - thus now on low-dose Entresto BID (11) Dizziness: checked orthostatics - negative pt has not complained of dizziness since admission Plan Admission HPI Per Admitting Provider Viridiana is a pleasant 78-year-old female with PMH of TIA, cardiomyopathy, diabetes mellitus, HLD, HTN, seizure-like activity, and restrictive lung disease. She presented on 04/18 for worsening MSSA and Enterococcus infection in her right wrist. She was initially placed on Bactrim for the infection on 04/09, but then developed a rash across her body yesterday. Patient's daughter is at the bedside and provides most of the history. She reports that patient's red, blotchy rash started yesterday and has progressively worsened. Initially was itching so the patient's daughter gave her children's Benadryl 10 mL last night. She then went to her PCPs office this morning and had a fever of 103 F. No prior history of cellulitis or MRSA infections. She did not take any of her regular morning medications today; other than starting Bactrim on either the evening of 04/09 or the morning of 04/10 she denies any recent changes in medications. She denies smoking or tobacco use; former smoker but quit 39 years old. No recent alcohol use. Patient denies IV drug use. She denies sexual activity. Patient is hypotensive at 94/62, tachycardic at 101 bpm, and febrile at 37.7 C at time of admission. ED course: NSS 500 mL IV x 2 Daptomycin 375 mg IV Cefepime 2000 mg IV Acetaminophen 1000 mg IV Solu-Medrol 125 mg IV ROS: Patient endorses fever, chills, night-sweats, red blotching rash, itching on right arm, lightheaded with standing, N/V (on Monday and Monday; stomach bile; not eating much), and loose stool. Patient denies dizziness, RDZ, pain in right arm, chest pain, SOB, cough, abdominal pain, diarrhea, hematemesis, blood in the urine/stool, burning with urination, dysuria, or numbness/tingling in the arms or legs. Discharge Exam Constitutional- obese, NAD, sitting in chair skin - erythematous rash on back, torso, chest, arms, upper legs - appears resolved; very faint at this point in most locations; right distal arm - irregularly shaped ulceration with no drainage only; there are previously placed demarkation lines present around this area; erythema/cellulitis significantly resolved; petechiae on legs resolved HEENT - no JVD, MMM, no thrush Heart - irregularly irregular, s1 s2, no murmur Lungs - CTA b/l Abd - soft NT ND BS+ Ext - pulses 2+ b/l, no edema Psych - pleasant Updated Medication List Medication Instructions Recorded Confirmed Type metoprolol succinate 25 mg 25 mg PO DAILY 01/16/21 04/18/24 History tablet,extended release 24 hr atorvastatin 20 mg tablet (Lipitor) 20 mg PO DAILY #30 tabs 01/18/21 04/18/24 Rx apixaban 5 mg tablet (Eliquis) 5 mg PO BID 04/18/24 04/18/24 History sertraline 50 mg tablet 75 mg PO DAILY 04/18/24 04/18/24 History cephalexin 500 mg capsule 500 mg PO TID #9 caps 04/25/24 Rx ciprofloxacin HCl 500 mg tablet 500 mg PO BID #6 tabs 04/25/24 Rx melatonin 3 mg tablet 3 mg PO HS #30 tabs 04/25/24 Rx sacubitril 24 mg-valsartan 26 mg 0.5 tab PO BID #30 tabs 04/25/24 Rx tablet (Entresto) Hospital Stay Data Consultations 04/18/24 13:29 ED Decision to Admit Stat Pending Results Patient Have Any Pending Studies at Discharge: No Discharge Instructions Given to Patient (Per Discharging Provider) Recommend close followup with PCP in 1-2 weeks. will continue antibiotics for 3 more days. Total Time Total Time Spent Total Time Spent (In Minutes): 35 Coding Level of Care Code 91125 INP/OBS DISCH >30 MIN Diagnoses Right arm cellulitis L03.113 Allergic reaction T78.40XA Encounter type: initial encounter Cellulitis of left knee L03.116 COSMO (acute kidney injury) N17.9 Atrial fibrillation I48.91 Diabetes mellitus E11.9 Hyperlipidemia E78.5 Hypotension I95.9 Acute metabolic encephalopathy G93.41 Cardiomyopathy I42.9 Dizziness R42
== END 2024-04-25 19:04 | disposition home health service (06) | DRG 602 ==
LOC: ED 11:41 → SUATTDRO 14:21 → 2E 14:21

== ENCOUNTER 2025-06-03 08:33 | Observation (INO) ==
--- NOTE | 2025-06-03 08:55 | Emergency Department Note ---
Impression & Plan Head injury, Traumatic hematoma of scalp, Nausea, Hypertensive urgency ED Provider Note Name: ODALYS PALMA Age: 79 Sex: Female Arrives Via: Walk-In Informant: Patient, Daughter ED Provider: Waldo Conklin MD Chief Complaint: Vomiting Impression: As per impressions Medical Decision Making: Pleasant 79-year-old female arrives for evaluation of vomiting and headache following a head injury about 5 days ago. Patient has been seen in the ER [address] head and cervical spine at that time which were unremarkable. Since getting here no worsening symptoms. On arrival patient awake alert and oriented NIH 0. She does have a large hematoma to the right scalp but no clear evidence of infection. Given her Eliquis use and worsening symptoms a repeat CT head was obtained which was unremarkable. A repeat CT cervical spine was not obtained as she already had cleared. Laboratory workup is reassuring. Patient is persistently hypertensive likely secondary to not taking her blood pressure medicine this morning which unfortunately due to nausea and vomiting she is unable to do so. She does require repeat dosing of the nausea medication as well as antihypertensive IV. Patient was noted to become hypoxic following IV Tylenol and IV fluids admit after the narcotic she had obtained. A chest x-ray was obtained she is fortunate without evidence of overload pneumonia or pneumothorax. Given the intractability of symptoms and patient's other risk factors at this point it is felt hospitalization indicated. I do not feel she requires transfer to higher level of care. As for patient the patient's hematoma. Did not feel it is infected. Patient had drainage at that time. Patient was evaluated as an injury alert Patient seen on arrival to ED bed by me. Primary and secondary surveys were completed by me on initial arrival. Cervical spine was cleared based on examination and recent negative CT of the neck. No cervical collar indicated at this time (additional evaluation). Triage/Nursing Notes reviewed by Me External Chart Review by me: I reviewed the PCP note from 04/29/2025 discussing past medical history Differential:Intracranial hemorrhage pneumothorax, pneumonia, fluid overload, skull fracture, concussion, hypertensive emergency electrolyte imbalance, pathologies considered Vital Signs: reviewed and remarkable for hypertensive Interventions: Dilaudid IV, Tylenol IV, Zofran normal saline bolus IV, labetalol IV Labs:ED labs Reviewed by me and remarkable for no significant abnormalities Imaging: CT of the head as per my informal interpretation. There is no intracranial hemorrhage or mass effect. There is a large hematoma over the right yarsanism/forehead area X ray results are stated below per my interpretation: Chest: 1 view: No infiltrate, no effusion, normal cardiac border. EKG:Per My Interpretation: Indication vomitin/htn: Afib 92 bpm, qtc 479. No Ectopy. No Ischemia. Compared to EKG 04/18/24, no significant changes. Cardiac/Tele Monitoring: Cardiac Monitoring: An Order was placed for continuous cardiac monitoring. The monitor shows a rate of 80 with a afib rhythm. Consults:Dr Bola BRASWELL Hospitalists Plan: Disposition:Hospitalization. Condition: Fair History of Present Illness: 79-year-old female arrives for evaluation of vomiting. Patient had a head injury 5 days ago and struck the right side of her head. She was seen in the ER at that time and received multiple sutures to the upper right scalp along with having a CT head and cervical spine which were unremarkable at that time. Patient arrives to the ER with 12 hours rapidly worsening nausea, vomiting, headache, dizziness, photophobia and weakness. Headache is primarily along the entire right scalp and around her ear. Bruising has gone from the right forehead all the way down to her right cheek now. Patient is on Eliquis. This is for A-fib. Denies any further falls or injuries. Denies any other injuries. Is not having any shortness of breath, chest pain, abdominal pain, diarrhea, back pain, flank pain, urinary symptoms or other concerning signs or symptoms. No medication prior to arrival for symptoms. Past Medical History:See Below Home Medications:See Below Allergies: Sulfa, aspirin Vitals:Blood Pressure: 197/98, Pulse 83, RR 18, T 36.7C, O2 94% on RA Physical Exam: GENERAL: Patient is uncomfortable appearing and in moderate distress. HEAD: Large ecchymosis right forehead extending down right cheek. There is swelling without significant fluctuance surrounding sutures at right forehead. TTP through right parietal scalp as well. NECK: Non-Tender no step off PUPILS: Equal, reactive. Difficult to appreciate though seems slight disconjugate gaze of right eye laterally, though has some nubia-orbital edema. RESPIRATORY: No dyspnea. Clear to auscultation and equal bilaterally. CARDIOVASCULAR: Irregular.No murmur appreciated. GASTROINTESTINAL: Abdomen soft, non-tender, no peritonitis. EXTREMITIES: Normal motion all extremities, no cyanosis, no edema. NEUROLOGIC: Alert and oriented. No focal neurologic deficits appreciated SKIN: No rash, no jaundice, no diaphoresis. PSYCH: Appropriate GCS: 15 ED Course: Times/Reassessments: Continued nausea, improving headache, waxing/waning HTN. Agreeable hospitalization Waldo Conklin MD Past Med/Surg History Problem List (Updated 06/05/25 @ 07:44 by Waldo Conklin MD) Hypertensive urgency (Acute) Nausea (Acute) Traumatic hematoma of scalp (Acute) Head injury (Acute) Headache Laceration of head (Acute) Fall (Acute) Non-healing non-surgical wound Skin lesion of right leg (Acute) Skin lesion of right arm (Acute) Dizziness Acute metabolic encephalopathy Atrial fibrillation with rapid ventricular response (Acute) Cellulitis of forearm, right (Acute) Cellulitis of left knee Right arm cellulitis Allergic reaction (Acute) Hypotension COSMO (acute kidney injury) (Acute) Infection of wound due to methicillin resistant Staphylococcus aureus (MRSA) (Acute) Fever (Acute) Restrictive lung disease Hemoptysis Ex-smoker Pulmonary nodule Ex-smoker Abnormal chest CT Hypertension Hyperlipidemia Diabetes mellitus Atrial fibrillation (Acute) Cough with hemoptysis (Acute) Lung mass (Acute) Chronic kidney disease, stage 3a Hemorrhoids Cardiomyopathy TIA (transient ischemic attack) Seizure-like activity Medical History Hypokalemia Surgical History S/P cataract extraction S/P hysterectomy S/P cholecystectomy No pertinent past surgical history Family History Unknown Asthma Diabetes Heart disease Allergies Social History Smoking Status: Former smoker Tobacco Type: Cigarettes Age Started Using Tobacco: 15; Age Quit Using Tobacco: 35; packs per day: 1; Cigarettes Per Day: 1; Second Hand Exposure: No; Do You Dip or Chew Tobacco: No; Hx Alcohol Use: No Hx Substance Use: No Preferred Language: Kyrgyz Communication Ability: Effective Visual Impairment: Limited Hearing Ability: Normal Field Case Manager Required: No Beliefs That Will Affect Care: None marital status: / Current Living Situation: Alone current occupational status: retired How many Children do You have: 2 How many Children do You have Comment: Both local and able to assist with care as needed Feels Safe at Home: Yes Diet: diabetic and low salt during the past year weight has: remained stable Assistive Devices: Cane, Walker and Wheelchair Allergies Allergies Allergy/AdvReac Type Severity Reaction Status Date / Time Sulfa (Sulfonamide Allergy Severe Full body Verified 05/29/25 20:48 Antibiotics) rash; itching sulfamethoxazole Allergy Intermediate Rash Verified 05/29/25 20:48 [From Bactrim] trimethoprim [From Bactrim] Allergy Intermediate Rash Verified 05/29/25 20:48 aspirin Allergy Mild RED RASH Verified 05/29/25 20:48 Home Meds Home Medications Medication Instructions Recorded Confirmed apixaban 5 mg tablet (Eliquis) 5 mg PO BID 04/18/24 06/03/25 sertraline 50 mg tablet 50 mg PO DIRECTED 04/18/24 06/03/25 latanoprost 0.005 % eye drops 1 drp ophthalmic (eye) DAILY 05/15/25 06/03/25 mometasone 0.1 % topical ointment 1 applic topical DAILY PRN Skin 05/15/25 06/03/25 Irritation mupirocin 2 % topical ointment 1 applic topical TID PRN Skin 05/15/25 06/03/25 Irritation Previous Rx's Medication Instructions Recorded atorvastatin 20 mg tablet (Lipitor) 20 mg PO DAILY #30 tabs 01/18/21 melatonin 3 mg tablet 3 mg PO HS #30 tabs 04/25/24 metoprolol succinate 50 mg 50 mg PO DAILY #90 tabs 10/16/24 tablet,extended release 24 hr lisinopril 40 mg tablet 40 mg PO DAILY #90 tabs 04/01/25 Results & Data (ED) Vital Signs Vital Signs - 24 hr 06/03/25 08:37 06/03/25 09:19 06/03/25 09:32 Temperature 36.7 C Temperature Source Temporal Artery Scan Pulse Rate 83 81 85 Pulse Rate from SpO2 Sensor Respiratory Rate 18 16 Respiratory Effort / Characteristics Non-Labored Spontaneous Respiratory Depth Normal Blood Pressure 197/98 H 218/136 H Blood Pressure Mean 131 175 Blood Pressure Position Sitting Pulse Oximetry 94 95 Oxygen Delivery Method Room Air Sepsis Recent Fever Within 48 Hours No Sepsis New/Unexplained Change in Mental Status No Sepsis Action Taken by Nursing No Action Required 06/03/25 10:00 06/03/25 10:00 06/03/25 10:07 Temperature Temperature Source Pulse Rate 76 74 Pulse Rate from SpO2 Sensor 77 Respiratory Rate 18 Respiratory Effort / Characteristics Respiratory Depth Blood Pressure 205/113 H 201/101 H 201/101 H Blood Pressure Mean 143 136 Blood Pressure Position Pulse Oximetry 91 Oxygen Delivery Method Sepsis Recent Fever Within 48 Hours Sepsis New/Unexplained Change in Mental Status Sepsis Action Taken by Nursing Laboratory Data 06/05/25 06:32 06/05/25 06:32 Lab Results 06/03/25 Range/Units 08:52 WBC 5.93 (4.8-10.8) K/ul RBC 4.54 (4.20-5.40) M/uL Hgb 12.8 (12.0-16.0) g/dl Hct 39.9 (37.0-47.0) % MCV 87.9 (80.0-100.0) fL MCH 28.2 (25.0-34.0) pg MCHC 32.1 (32.0-36.0) g/dL RDW Std Deviation 47.0 H (36.4-46.3) fL RDW Coeff of Nikkie 14.6 H (11.5-14.5) % Plt Count 172 (130-400) K/uL MPV 10.1 (9.4-12.4) fL Immature Gran % (Auto) 0.3 % Neut % (Auto) 68.1 % Lymph % (Auto) 20.7 % [place] % (Auto) 7.9 % Eos % (Auto) 2.5 % Baso % (Auto) 0.5 % Neut # (Auto) 4.03 (1.40-6.50) K/uL Lymph # (Auto) 1.23 (1.20-3.40) K/uL [place] # (Auto) 0.47 (0.11-0.59) K/uL Eos # (Auto) 0.15 (0.00-0.50) K/uL Baso # (Auto) 0.03 (0.00-0.20) K/uL Immature Gran # (Auto) 0.02 (0.01-0.20) K/uL PT 10.4 (9.0-12.0) Seconds INR 1.0 (0.9-1.1) APTT 25 (21-31) Seconds PTT Ratio 0.9 Sodium 144 (136-145) mmol/L Potassium 3.0 L (3.5-5.1) mmol/L Chloride 106 (98-107) mmol/L Carbon Dioxide 32 (21-32) mmol/L Anion Gap 6 (3-11) BUN 15 (6-23) mg/dl Creatinine 0.92 (0.6-1.2) mg/dl Est Cr Clr Drug Dosing 49.8 ml/min eGFR 62.94 BUN/Creatinine Ratio 16.3 (10-20) Glucose 158 H (70-99(Fasting)) mg/dl Calcium 9.9 (8.6-10.3) mg/dl Magnesium 2.2 (1.7-2.4) mg/dl Total Bilirubin 0.7 (0.2-1.0) mg/dl Direct Bilirubin 0.1 (0-0.2) mg/dl AST 17 (13-39) U/L ALT 14 (7-52) U/L Alkaline Phosphatase 53 (34-104) U/L Troponin I High Sens 7.9 (0-14) pg/ml Total Protein 7.4 (6.0-8.3) gm/dl Albumin 4.2 (3.4-5.0) gm/dl Lipase 69 (11-82) U/L TSH 6.659 H (0.300-4.500) uIu/ml Free T4 0.62 (0.61-1.60) ng/dl Administered Medications Acetaminophen (Acetaminophen 325 Mg Tab) 650 mg PO TID [facility] [place] Stop: 07/03/25 16:29 Last Admin: 06/04/25 20:19 Dose: 650 mg Documented By: Admin: 06/04/25 13:19 Dose: 650 mg Documented By: brit Admin: 06/04/25 08:45 Dose: 650 mg Documented By: brit Admin: 06/03/25 21:47 Dose: 650 mg Documented By: Admin: 06/03/25 17:08 Dose: 650 mg Documented By: BRITTNEE Atorvastatin Calcium (Atorvastatin 20 Mg Tab) 20 mg PO DAILY [facility] Stop: 07/04/25 08:59 Last Admin: 06/04/25 08:46 Dose: 20 mg Documented By: brit Diclofenac Sodium (Diclofenac Sod 1% Gel 100 Gm Tube) 2 gm EXT QID [facility] [place]; Protocol Stop: 07/03/25 16:59 Last Admin: 06/04/25 20:19 Dose: 2 gm Documented By: Admin: 06/04/25 17:39 Dose: Not Given Documented By: brit Admin: 06/04/25 13:20 Dose: 2 gm Documented By: brit Admin: 06/04/25 08:46 Dose: 2 gm Documented By: brit Admin: 06/03/25 20:04 Dose: 2 gm Documented By: Admin: 06/03/25 17:08 Dose: 2 gm Documented By: BRITTNEE Ketorolac Tromethamine (Ketorolac Tromethamine 15 Mg/Ml Vial) 15 mg IV Q6H PRN PRN Reason: Pain Stop: 06/08/25 16:11 Last Admin: 06/04/25 02:12 Dose: 15 mg Documented By: JONA Latanoprost (Latanoprost 0.005% Op Soln 2.5 Ml Btl) 1 drops OP [facility] Stop: 07/04/25 20:59 Last Admin: 06/04/25 20:19 Dose: 1 drops Documented By: JONA Lisinopril (Lisinopril 40 Mg Tab) 40 mg PO DAILY [facility] [place] Stop: 07/04/25 08:59 Last Admin: 06/04/25 08:46 Dose: 40 mg Documented By: brit Melatonin (Melatonin 3 Mg Tab) 3 mg PO HS [facility] Stop: 07/03/25 20:59 Last Admin: 06/04/25 20:19 Dose: 3 mg Documented By: Admin: 06/03/25 21:47 Dose: 3 mg Documented By: RAEGAN Metoprolol Succinate (Metoprolol Succ 50mg Ext Rel Tab) 50 mg PO DAILY [facility] Stop: 07/04/25 08:59 Last Admin: 06/04/25 08:46 Dose: 50 mg Documented By: brit Polyethylene Glycol (Polyethylene (Miralax) 17 Gm Pack) 17 gm PO DAILY PRN PRN Reason: Constipation Stop: 07/03/25 16:11 Last Admin: 06/03/25 20:05 Dose: 17 gm Documented By: RAEGAN Sertraline HCl (Sertraline Hcl 50 Mg Tablet) 50 mg PO QAM [facility] Stop: 07/04/25 08:59 Last Admin: 06/04/25 08:46 Dose: 50 mg Documented By: brit Sertraline HCl (Sertraline Hcl 50 Mg Tablet) 25 mg PO HS [facility] Stop: 07/03/25 20:59 Last Admin: 06/04/25 20:20 Dose: 25 mg Documented By: Admin: 06/03/25 21:48 Dose: 25 mg Documented By: RAEGAN Discontinued Medications Hydromorphone HCl (Hydromorphone Inj 0.5 Mg/0.5 Ml Syr) 0.25 mg IV NOW STA Stop: 06/03/25 08:52 Last Admin: 06/03/25 09:40 Dose: 0.25 mg Documented By: Sodium Chloride (Nss) 500 mls @ 999 mls/hr IV .Q31M ONE Stop: 06/03/25 09:21 Last Infusion: 06/03/25 09:41 Dose: Infused Documented By: Admin: 06/03/25 08:56 Dose: 999 mls/hr Documented By: MR Acetaminophen (Ofirmev) 1,000 mg in 100 mls @ 400 mls/hr IV NOW STA Stop: 06/03/25 10:11 Last Infusion: 06/03/25 12:07 Dose: Infused Documented By: Admin: 06/03/25 10:08 Dose: 400 mls/hr Documented By: Magnesium Sulfate/Dextrose (Magnesium Sulfate / D5w) 1 gm in 100 mls @ 50 mls/hr IV Q2H [facility] Stop: 06/04/25 00:29 Last Infusion: 06/04/25 02:12 Dose: Infused Documented By: Admin: 06/04/25 00:07 Dose: 50 mls/hr Documented By: Infusion: 06/04/25 00:07 Dose: Infused Documented By: Admin: 06/03/25 21:51 Dose: 50 mls/hr Documented By: Infusion: 06/03/25 21:51 Dose: Infused Documented By: Admin: 06/03/25 20:04 Dose: 50 mls/hr Documented By: Infusion: 06/03/25 19:30 Dose: Infused Documented By: Admin: 06/03/25 17:08 Dose: 50 mls/hr Documented By: BRJ Labetalol HCl (Labetalol Hcl Iv 5 Mg/Ml 20ml) 10 mg IV NOW STA Stop: 06/03/25 09:58 Last Admin: 06/03/25 10:07 Dose: 10 mg Documented By: Labetalol HCl (Labetalol Hcl Iv 5 Mg/Ml 20ml) 10 mg IV NOW STA Stop: 06/03/25 10:30 Last Admin: 06/03/25 12:07 Dose: 10 mg Documented By: MR Ondansetron HCl (Ondansetron Inj 2 Mg/Ml 2 Ml Vial) 4 mg IV NOW STA Stop: 06/03/25 09:58 Last Admin: 06/03/25 10:07 Dose: 4 mg Documented By: MR Potassium Chloride (Potassium Chloride Crtab 20 Meq Tabcr) 40 meq PO NOW STA Stop: 06/03/25 12:22 Last Admin: 06/03/25 13:10 Dose: 40 meq Documented By: MR Imaging Data Radiologist's Impression: Head CT 06/03/25 08:51 CT SCAN OF THE BRAIN WITHOUT IV CONTRAST CLINICAL HISTORY: Headache. Vomiting. COMPARISON STUDY: CT of the brain dated 05/29/2025. TECHNIQUE: Unenhanced axial CT scan of the brain is performed from the vertex to the skull base. Images are reviewed in the axial, sagittal, coronal planes. A dose lowering technique was utilized adhering to the principles of ALARA. CT DOSE: 625.8 mGy.cm FINDINGS: Brain parenchyma: A focus of left cerebellar encephalomalacia is unchanged and consistent with a remote insult. There is age-related involutional change noting moderate subcortical and periventricular microangiopathic disease. There is no hemorrhage, mass effect, or evidence of acute territorial ischemia by CT criteria. Mccann-white matter differentiation is preserved. No extra-axial fluid collection is seen. Ventricles, sulci, cisterns: Prominent secondary to involutional change. Intracranial vasculature: There is atherosclerotic calcification of the cavernous carotid and vertebral arteries. Calvarium: The skeletal structures are osteopenic. No depressed calvarial fracture is seen. Soft tissues: There is a large right frontal scalp hematoma. Sinuses and mastoids: The paranasal sinuses are clear. The mastoid air cells are well pneumatized. Orbits: The bony orbits are grossly intact. There are bilateral ocular lens implants. IMPRESSION: 1. There is no hemorrhage, mass effect, or evidence of acute territorial ischemia by CT criteria. 2. Large right frontal scalp hematoma. ACT 112: Negative or not required by law. Electronically signed by: Trung Abdalla M.D. 06/03/2025 9:28 AM Discharge Plan Visit Data Chief Complaint: Head Injury, Minor Stated Complaint: BLEEDING BRAIN/SWELLING ED Provider: Waldo Conklin Discharge Problem: Head injury, Traumatic hematoma of scalp, Nausea, Hypertensive urgency Patient Disposition: Admitted As Inpatient Condition: Fair Discharge Instructions Interventions: ED Discharge Assessment Last Done: 06/03/25 16:12 Discharge Problem: Head injury Qualifiers: Encounter type: initial encounter Qualified Code(s): S09.90XA - Unspecified injury of head, initial encounter Traumatic hematoma of scalp Qualifiers: Encounter type: initial encounter Qualified Code(s): S00.03XA - Contusion of scalp, initial encounter
[2025-06-03] MEDS: SODIUM CHLORIDE 0.9% 500 ML IV ONE (08:56)
[2025-06-03 09:10] LABS: Hematocrit (blood only) 39.9 % (37.0-47.0); Hemoglobin 12.8 g/dl (12.0-16.0); Immature Granulocytes # (auto) 0.02 K/uL (0.01-0.20); Immature Granulocytes % (auto) 0.3 %; Mean Corpuscular Hemoglobin 28.2 pg (25.0-34.0); Mean Corpuscular Volume 87.9 fL (80.0-100.0); Platelet Count 172 K/uL (130-400); RDW Standard Deviation 47.0 fL (36.4-46.3); Red Blood Count 4.54 M/uL (4.20-5.40); White Blood Count 5.93 K/ul (4.8-10.8)
[2025-06-03 09:29] LABS: Alanine Aminotransferase 14.0 U/L (7-52); Alkaline Phosphatase 53.0 U/L (34-104); Anion Gap 6.0 (3-11); Bilirubin,Total 0.7 mg/dl (0.2-1.0); Blood Urea Nitrogen 15.0 mg/dl (6-23); Calcium 9.9 mg/dl (8.6-10.3); Carbon Dioxide 32.0 mmol/L (21-32); Chloride 106.0 mmol/L (98-107); Creatinine Clr Calc Pharmacy 49.8 ml/min; Glucose 158.0 mg/dl (70-99(Fasting)); Lipase 69.0 U/L (11-82); Magnesium 2.2 mg/dl (1.7-2.4); Potassium 3.0 mmol/L (3.5-5.1); Sodium 144.0 mmol/L (136-145); Total Protein 7.4 gm/dl (6.0-8.3)
--- NOTE | 2025-06-03 09:30 | CT Scan Report ---
CT SCAN OF THE BRAIN WITHOUT IV CONTRAST CLINICAL HISTORY: Headache. Vomiting. COMPARISON STUDY: CT of the brain dated 05/29/2025. TECHNIQUE: Unenhanced axial CT scan of the brain is performed from the vertex to the skull base. Imag es are reviewed in the axial, sagittal, coronal planes. A dose lowering technique was utilized adheri ng to the principles of ALARA. CT DOSE: 625.8 mGy.cm FINDINGS: Brain parenchyma: A focus of left cerebellar encephalomalacia is unchanged and consistent with a brittney te insult. There is age-related involutional change noting moderate subcortical and periventricular m icroangiopathic disease. There is no hemorrhage, mass effect, or evidence of acute territorial ischem ia by CT criteria. Mccann-white matter differentiation is preserved. No extra-axial fluid collection is seen. Ventricles, sulci, cisterns: Prominent secondary to involutional change. Intracranial vasculature: There is atherosclerotic calcification of the cavernous carotid and vertebr al arteries. Calvarium: The skeletal structures are osteopenic. No depressed calvarial fracture is seen. Soft tissues: There is a large right frontal scalp hematoma. Sinuses and mastoids: The paranasal sinuses are clear. The mastoid air cells are well pneumatized. Orbits: The bony orbits are grossly intact. There are bilateral ocular lens implants. IMPRESSION: 1. There is no hemorrhage, mass effect, or evidence of acute territorial ischemia by CT criteria. 2. Large right frontal scalp hematoma. ACT 112: Negative or not required by law. Electronically signed by: Trung Abdalla M.D. 06/03/2025 9:28 AM
[2025-06-03 09:40] LABS: INR 1.0 (0.9-1.1); Partial Thromboplastin Time 25 Seconds (21-31); Prothrombin Time 10.4 Seconds (9.0-12.0)
[2025-06-03] MEDS: HYDROmorphone INJ 0.5 MG/0.5 ML SYR IV STA (09:40)
[2025-06-03 09:44] LABS: Thyroid Stimulating Hormone 6.659 uIu/ml (0.300-4.500)
[2025-06-03] MEDS: LABETALOL HCL IV 5 MG/ML 20ML IV STA ×2 (10:07→12:07)
[2025-06-03] MEDS: ONDANSETRON INJ 2 MG/ML 2 ML VIAL IV STA (10:07)
[2025-06-03] MEDS: ACETAMINOPHEN 1,000 MG/100 ML VIAL IV STA (10:08)
--- NOTE | 2025-06-03 11:45 | XRay Report ---
XR chest 1V portable CLINICAL HISTORY: hypoxia COMPARISON STUDY: 05/21/2025 FINDINGS: The heart remains enlarged. There is aortic tortuosity. There is no failure. There is no fo cheng pulmonary consolidation. There is a stable 21 mm nodule at the right medial lung base projected t hrough the heart border. This was described on a prior PET CT scan performed in November 2022. IMPRESSION: 1. Stable cardiomegaly. 2. No evidence of focal pulmonary consolidation 3. Stable 21 mm nodule at the right medial lung base ACT 112: Negative or not required by law. Electronically signed by: Andrzej Ferreira M.D. 06/03/2025 11:43 AM
[2025-06-03] MEDS: POTASSIUM CHLORIDE CRTAB 20 MEQ TABCR PO STA (13:10)
--- NOTE | 2025-06-03 13:18 | History & Physical Report ---
Date of Service June 03, 2025 Assessment & Plan (1) Headache: (2) Acute metabolic encephalopathy: (3) Hypertension: (4) Diabetes mellitus: (5) Hyperlipidemia: (6) Atrial fibrillation: Plan #headacheappears to really be 3 different headaches at playtraumatic with the bruising, I suboccipital tension headache on the right, and then (given the nausea and vomiting) likely migrainous physiology as well. - The bruising and posttraumatic headache will just take timegiven that the bruising is getting worse, will hold Eliquis until things have stabilized (see below) - suboccipital tension headachethis physician currently is unable to really do OMT due to a wrist injury, but if physician assuming care is adept at OMT suboccipital techniques would probably be quite helpful. Voltaren gel, mag IV, Tylenol [id number], ice packs - migrainemag IV, Tylenol [id number], Toradol as needed. I suspect that the posttraumatic and tension headaches are the inciting factors. #Deliriumprobably from the pain superimposed on mild dementia. Delirium precautions, hopefully will be to get her to a room with natural daylight. I have tried to avoid sedating medications. Reassurance/reorientation. Outlined delirium with daughter. #Atrial fibrillation - rate is controlled, will have Eliquis on hold. Discussed stroke risk while off Eliquis is fairly small especially whenever it is only a couple of days. Patient and daughter expressed understanding #hypertension - does not appear to have directly hypertensive mediated symptoms. Blood pressure is likely reactive to pain and stress. Continue current care with her lisinoprilwould hesitate to "treat the number" in her current range given that is likely provoked #hyperlipidemia - continue atorvastatin #DVT prophylaxis - SCDs (pharmacologic contraindicated due to the hematoma) dispositionadmit to medical, PT/OT eval and treat. Lives at home independently with family support, hopefully she will need to return to that unless the delirium supersedes. History of Present Illness Chief Complaint: Headache Primary Care Provider: Enriqueta Harry MD patient is a very pleasant 79-year-old female accompanied by her daughter. She presented to the ER first about a week ago after having hit her head. Family is quite certain she did not lose consciousnessbut rather that she hit her head on the corner of a cabinet and had immediate pain and bleeding. She was seen and evaluated, reassuring evaluation, was able to go home. She continue taking her Eliquis. Over the last 2 days or so the bruising around her laceration and around her face and eye have dramatically worsened as has her pain. Today she had intractable pain headache predominantly on the right side of her head. She had some nausea and vomiting. The bruising looks bigger and worse. She has no focal neurodeficits. Family brought her to the ER for further evaluation. Daughter does note that she seems mildly confused and does note that she has mild baseline dementia. Allergies Allergy/AdvReac Type Severity Reaction Status Date / Time Sulfa (Sulfonamide Allergy Severe Full body Verified 05/29/25 20:48 Antibiotics) rash; itching sulfamethoxazole Allergy Intermediate Rash Verified 05/29/25 20:48 [From Bactrim] trimethoprim [From Bactrim] Allergy Intermediate Rash Verified 05/29/25 20:48 aspirin Allergy Mild RED RASH Verified 05/29/25 20:48 Home Medications Medication Instructions Recorded Confirmed Type atorvastatin 20 mg tablet (Lipitor) 20 mg PO DAILY #30 tabs 01/18/21 06/03/25 Rx apixaban 5 mg tablet (Eliquis) 5 mg PO BID 04/18/24 06/03/25 History sertraline 50 mg tablet 50 mg PO DIRECTED 04/18/24 06/03/25 History melatonin 3 mg tablet 3 mg PO HS #30 tabs 04/25/24 06/03/25 Rx metoprolol succinate 50 mg 50 mg PO DAILY #90 tabs 10/16/24 06/03/25 Rx tablet,extended release 24 hr lisinopril 40 mg tablet 40 mg PO DAILY #90 tabs 04/01/25 06/03/25 Rx latanoprost 0.005 % eye drops 1 drp ophthalmic (eye) DAILY 05/15/25 06/03/25 History mometasone 0.1 % topical ointment 1 applic topical DAILY PRN Skin 05/15/25 06/03/25 History Irritation mupirocin 2 % topical ointment 1 applic topical TID PRN Skin 05/15/25 06/03/25 History Irritation Past Med/Surg History Problem List (Updated 06/03/25 @ 13:14 by Xavier Plaza DO) Headache Laceration of head (Acute) Fall (Acute) Non-healing non-surgical wound Skin lesion of right leg (Acute) Skin lesion of right arm (Acute) Dizziness Acute metabolic encephalopathy Atrial fibrillation with rapid ventricular response (Acute) Cellulitis of forearm, right (Acute) Cellulitis of left knee Right arm cellulitis Allergic reaction (Acute) Hypotension COSMO (acute kidney injury) (Acute) Infection of wound due to methicillin resistant Staphylococcus aureus (MRSA) (Acute) Fever (Acute) Restrictive lung disease Hemoptysis Ex-smoker Pulmonary nodule Ex-smoker Abnormal chest CT Hypertension Hyperlipidemia Diabetes mellitus Atrial fibrillation (Acute) Cough with hemoptysis (Acute) Lung mass (Acute) Chronic kidney disease, stage 3a Hemorrhoids Cardiomyopathy TIA (transient ischemic attack) Seizure-like activity Medical History Hypokalemia Surgical History S/P cataract extraction S/P hysterectomy S/P cholecystectomy No pertinent past surgical history Family History Unknown Asthma Diabetes Heart disease Allergies Social History Smoking Status: Former smoker Tobacco Type: Cigarettes Age Started Using Tobacco: 15; Age Quit Using Tobacco: 35; packs per day: 1; Do You Dip or Chew Tobacco: No; Hx Alcohol Use: Yes Hx Substance Use: No Preferred Language: Cymraes Communication Ability: Effective Visual Impairment: Limited Hearing Ability: Normal Director [employer] Required: No Beliefs That Will Affect Care: None marital status: / Current Living Situation: Alone current occupational status: retired How many Children do You have: 2 How many Children do You have Comment: Both local and able to assist with care as needed Feels Safe at Home: Yes Diet: diabetic and low salt during the past year weight has: remained stable Assistive Devices: Cane and Walker Review of Systems Review of Systems: All systems reviewed & are unremarkable except as noted in HPI & below Physical Exam Physical Exam: In general she is awake and alert appears to be mildly but pleasantly confused and somewhat uncomfortable. Elisha has a roughly 1.5 cm well-healing laceration on the right side of her forehead that has sutures in itunderneath this there is a large full area and a lot of surrounding bruising. Daughter shows me picturesin the evolution appears that there is a much larger area that is dark red and purple bruising, not simply that the bruising is tracking down fascial planes. It feels much huang than it appears to have looked in the pictures from a few days ago. Further she has right sided suboccipitals that are quite tender. Her neck otherwise appears to be supple with good range of motion. Mucous membranes are moist. Cardio is regular rate. Somewhat distant. Lungs are clear no rales rhonchi or wheezes. Abdomen is soft nondistended nontender no masses organomegaly. Extremities are without cyanosis or clubbing probably about 1+ o trace bilateral lower extremity edema without calf tenderness. Neuro shows cranial nerves II through XII to be grossly intact gross motor and sensory are equal and intact bilateral upper and lower extremities with no focal deficits except for left eye strabismus which has been quite chronic. Again mental status shows her to be pleasant but a little bit difficult in remembering the details of her situation may be mildly confused. Labs and diagnostics both from this ER stay and previous noted. Results & Data Results & Data Vital Signs (Past 12 Hours) Vital Signs Temp Pulse Pulse Resp BP BP Pulse Ox 06/03/25 12:12 69 18 181/96 H 97 06/03/25 12:07 78 181/96 H 06/03/25 11:30 79 16 172/111 H 97 06/03/25 10:45 97 06/03/25 10:31 71 168/85 H 06/03/25 10:07 74 201/101 H 06/03/25 10:05 96 06/03/25 10:00 201/101 H 06/03/25 10:00 76 18 205/113 H 81 L 06/03/25 09:32 85 16 218/136 H 95 06/03/25 09:19 81 06/03/25 08:37 98.1 F 83 18 197/98 H 94 O2 Del Method O2 Flow Rate 06/03/25 12:12 2 06/03/25 12:07 06/03/25 11:30 2 06/03/25 10:45 Nasal Cannula 4 06/03/25 10:31 06/03/25 10:07 06/03/25 10:05 Nasal Cannula 6 06/03/25 10:00 06/03/25 10:00 Room Air 09/02/25 09:32 06/03/25 09:19 06/03/25 08:37 Room Air Code Status & VTE Plan VTE Prophylaxis Plan VTE Prophylaxis will be ordered: Yes PG Care Time/CCT Total # of Minutes Spent Total Time Spent with Patient: Total time spent is greater than 50% in coordination of care (as documented) at patient's floor/unit and/or counseling patient: Coding Level of Care Code 77426 INT INP/OBS CARE 3/75MIN Diagnoses Headache R51.9 Acute metabolic encephalopathy G93.41 Primary hypertension I10 Hypertension type: primary hypertension Diabetes mellitus E11.9 Mixed hyperlipidemia E78.2 Hyperlipidemia type: mixed hyperlipidemia Atrial fibrillation I48.91 Atrial fibrillation type: unspecified (3) Hypertension Hypertension type: primary hypertension Qualified Code(s): I10 - Essential (primary) hypertension (5) Hyperlipidemia Hyperlipidemia type: mixed hyperlipidemia Qualified Code(s): E78.2 - Mixed hyperlipidemia (6) Atrial fibrillation Atrial fibrillation type: unspecified Qualified Code(s): I48.91 - Unspecified atrial fibrillation
[2025-06-03] MEDS ORDERED: MUPIROCIN 2% OINT 22 GM TUBE TOP PRN (16:12)
[2025-06-03] MEDS ORDERED: MAGNESIUM HYDROXIDE SUSP 30 ML UDC PO PRN (16:12)
[2025-06-03] MEDS ORDERED: ONDANSETRON INJ 2 MG/ML 2 ML VIAL IV PRN (16:12)
[2025-06-03] MEDS ORDERED: ALUMINUM/MAGNESIUM SUSP 30 ML UDC PO PRN (16:12)
[2025-06-03] MEDS: MAGNESIUM SULFATE / D5W 1 GM/100 ML BAG IV SCH (17:08)
[2025-06-03] MEDS: DICLOFENAC SOD 1% GEL 100 GM TUBE EXT SCH (17:08)
[2025-06-03] MEDS: ACETAMINOPHEN 325 MG TAB PO SCH (17:08)
[2025-06-03] MEDS: POLYETHYLENE (MIRALAX) 17 GM PACK PO PRN (20:05)
[2025-06-03] MEDS: MELATONIN 3 MG TAB PO SCH (21:47)
[2025-06-03] MEDS: SERTRALINE HCL 50 MG TABLET PO SCH (21:48)
[2025-06-04] MEDS: KETOROLAC TROMETHAMINE 15 MG/ML VIAL IV PRN (02:12)
[2025-06-04] MEDS: SERTRALINE HCL 50 MG TABLET PO SCH (08:46)
[2025-06-04] MEDS: ATORVASTATIN 20 MG TAB PO SCH (08:46)
[2025-06-04] MEDS: METOPROLOL SUCC 50MG EXT REL TAB PO SCH (08:46)
[2025-06-04 10:04] LABS: Hematocrit (blood only) 35.3 % (37.0-47.0); Hemoglobin 11.1 g/dl (12.0-16.0); Mean Corpuscular Hemoglobin 28.5 pg (25.0-34.0); Mean Corpuscular Volume 90.7 fL (80.0-100.0); Platelet Count 168 K/uL (130-400); RDW Standard Deviation 48.9 fL (36.4-46.3); Red Blood Count 3.89 M/uL (4.20-5.40); White Blood Count 5.87 K/ul (4.8-10.8)
[2025-06-04 10:21] LABS: Anion Gap 3.0 (3-11); Blood Urea Nitrogen 15.0 mg/dl (6-23); Calcium 8.9 mg/dl (8.6-10.3); Carbon Dioxide 32.0 mmol/L (21-32); Chloride 106.0 mmol/L (98-107); Creatinine Clr Calc Pharmacy 49.4 ml/min; Glucose 174.0 mg/dl (70-99(Fasting)); Potassium 3.6 mmol/L (3.5-5.1); Sodium 141.0 mmol/L (136-145)
[2025-06-04] MEDS: LATANOPROST 0.005% OP SOLN 2.5 ML BTL OP SCH (20:19)
--- NOTE | 2025-06-04 22:30 | Hospitalist Progress Note ---
Date of Service June 04, 2025 Assessment & Plan (1) Headache: (2) Acute metabolic encephalopathy: (3) Hypertension: (4) Diabetes mellitus: (5) Hyperlipidemia: (6) Atrial fibrillation: Plan #headacheappears to really be 3 different headaches at playtraumatic with the bruising, I suboccipital tension headache on the right, and then (given the nausea and vomiting) likely migrainous physiology as well. - The bruising and posttraumatic headache will just take timegiven that the bruising is getting worse, will hold Eliquis until things have stabilized (see below) - suboccipital tension headachethis physician currently is unable to really do OMT due to a wrist injury, but if physician assuming care is adept at OMT suboccipital techniques would probably be quite helpful. Voltaren gel, mag IV, Tylenol [id number], ice packs - migrainemag IV, Tylenol [id number]-bax-miyro, Toradol as needed. I suspect that the posttraumatic and tension headaches are the inciting factors. On 06/04 patient appears to be feeling better and her symptoms have improved. However physical therapy is recommending rehab. discussed with case management. #Deliriumprobably from the pain superimposed on mild dementia. Delirium precautions, hopefully will be to get her to a room with natural daylight. I have tried to avoid sedating medications. Reassurance/reorientation. Outlined delirium with daughter. APpears to have improved, though this may wax and wane. will monitor. #Atrial fibrillation - rate is controlled, will have Eliquis on hold. Discussed stroke risk while off Eliquis is fairly small especially whenever it is only a couple of days. Patient and daughter expressed understanding #hypertension - does not appear to have directly hypertensive mediated symptoms. Blood pressure is likely reactive to pain and stress. Continue current care with her lisinoprilwould hesitate to "treat the number" in her current range given that is likely provoked #hyperlipidemia - continue atorvastatin #DVT prophylaxis - SCDs (pharmacologic contraindicated due to the hematoma) dispositionadmit to medical, PT/OT eval and treat. Lives at home independently with family support, however PT recommending rehab. Admission and Anticipated Discharge Date Admission Date: June 03, 2025 Subjective Patient is not confused and calm dureing my visit. She has no new complaints. Review of Systems Review of Systems: All systems reviewed & are unremarkable except as noted in HPI & below Physical Exam Constitutional: WD/WN, vitals as above Head has a laceration on right side of her forehead with a full area and brusiing. Eyes: PERRL, conjunctivae normal, anicteric sclerae ENMT: external ear and nose normal, oropharynx normal Neck: trachea midline, no thyromegaly Respiratory: normal respiratory effort, lungs clear to auscultation Cardiovascular: RRR, no murmur, no edema Gastrointestinal (Abdomen): normal bowel sounds, soft, nontender, no hepatosplenomegaly Musculoskeletal: no cyanosis or clubbing, extremities motor strength 5/5 Skin: no rashes, warm and dry Neurologic: PERRL, EOMI, accommodation nl, no face palsy, no dysarthria Psychiatric: Orientation: alert, oriented to person and oriented to place Lymphatic: no cervical or axillary lymphadenopathy Results & Data Results & Data Vital Signs (Past 12 Hours) Vital Signs Temp Pulse Resp BP Pulse Ox O2 Del Method 06/04/25 16:15 36.8 C 63 16 153/63 H 92 Room Air PG Care Time/CCT Total # of Minutes Spent Total Time Spent with Patient: Total time spent is greater than 50% in coordination of care (as documented) at patient's floor/unit and/or counseling patient: Coding Level of Care Code 29709 SUB INP/OBS CARE 3/50MIN Diagnoses Headache R51.9 Acute metabolic encephalopathy G93.41 Primary hypertension I10 Hypertension type: primary hypertension Diabetes mellitus E11.9 Mixed hyperlipidemia E78.2 Hyperlipidemia type: mixed hyperlipidemia Atrial fibrillation I48.91 Atrial fibrillation type: unspecified (3) Hypertension Hypertension type: primary hypertension Qualified Code(s): I10 - Essential (primary) hypertension (5) Hyperlipidemia Hyperlipidemia type: mixed hyperlipidemia Qualified Code(s): E78.2 - Mixed hyperlipidemia (6) Atrial fibrillation Atrial fibrillation type: unspecified Qualified Code(s): I48.91 - Unspecified atrial fibrillation
[2025-06-05 07:06] LABS: Hematocrit (blood only) 33.4 % (37.0-47.0); Hemoglobin 10.8 g/dl (12.0-16.0); Mean Corpuscular Hemoglobin 29.0 pg (25.0-34.0); Mean Corpuscular Volume 89.5 fL (80.0-100.0); Platelet Count 173 K/uL (130-400); RDW Standard Deviation 47.0 fL (36.4-46.3); Red Blood Count 3.73 M/uL (4.20-5.40); White Blood Count 8.32 K/ul (4.8-10.8)
[2025-06-05 07:31] LABS: Anion Gap 5.0 (3-11); Blood Urea Nitrogen 22.0 mg/dl (6-23); Calcium 9.0 mg/dl (8.6-10.3); Carbon Dioxide 30.0 mmol/L (21-32); Chloride 106.0 mmol/L (98-107); Creatinine Clr Calc Pharmacy 42.5 ml/min; Glucose 111.0 mg/dl (70-99(Fasting)); Potassium 3.9 mmol/L (3.5-5.1); Sodium 141.0 mmol/L (136-145)
[2025-06-05] MEDS ORDERED: PHA DELIRIUM CONSULT PRN (10:45)
[2025-06-05 14:59] VITALS: RESP 16; TEMP 97.7; O2SAT 94
--- NOTE | 2025-06-05 16:49 | Discharge Summary ---
Discharge Summary Date of Service June 05, 2025 Principal Dx & Hospital Course #1 = Principal Diagnosis (1) Headache: (2) Acute metabolic encephalopathy: (3) Hypertension: (4) Diabetes mellitus: (5) Hyperlipidemia: (6) Atrial fibrillation: Plan #headacheappears to really be 3 different headaches at playtraumatic with the bruising, I suboccipital tension headache on the right, and then (given the nausea and vomiting) likely migrainous physiology as well. - The bruising and posttraumatic headache will just take timegiven that the bruising is getting worse, will hold Eliquis until things have stabilized (see below) - suboccipital tension headachethis physician currently is unable to really do OMT due to a wrist injury, but if physician assuming care is adept at OMT suboccipital techniques would probably be quite helpful. Voltaren gel, mag IV, Tylenol zuvuhe-[id number], ice packs - migrainemag IV, Tylenol rulrsi-znf-japby, Toradol as needed. I suspect that the posttraumatic and tension headaches are the inciting factors. On 06/04 patient appears to be feeling better and her symptoms have improved. However physical therapy is recommending rehab. discussed with case management. DIscharged on 06/05 #Deliriumprobably from the pain superimposed on mild dementia. Delirium precautions, hopefully will be to get her to a room with natural daylight. I have tried to avoid sedating medications. Reassurance/reorientation. Outlined delirium with daughter. APpears to have improved, though this may wax and wane. will monitor. #Atrial fibrillation - rate is controlled, will have Eliquis on hold. Discussed stroke risk while off Eliquis is fairly small especially whenever it is only a couple of days. Patient and daughter expressed understanding, will hold eliquis until Monday. *Hypertensive emergency (resolved) hypertension/headache treated with IV Labetalol initially #hypertension - does not appear to have directly hypertensive mediated symptoms. Blood pressure is likely reactive to pain and stress. Continue current care with her lisinoprilwould hesitate to "treat the number" in her current range given that is likely provoked. will defer to PCP> #hyperlipidemia - continue atorvastatin Admission HPI Per Admitting Provider patient is a very pleasant 79-year-old female accompanied by her daughter. She presented to the ER first about a week ago after having hit her head. Family is quite certain she did not lose consciousnessbut rather that she hit her head on the corner of a cabinet and had immediate pain and bleeding. She was seen and evaluated, reassuring evaluation, was able to go home. She continue taking her Eliquis. Over the last 2 days or so the bruising around her laceration and around her face and eye have dramatically worsened as has her pain. Today she had intractable pain headache predominantly on the right side of her head. She had some nausea and vomiting. The bruising looks bigger and worse. She has no focal neurodeficits. Family brought her to the ER for further evaluation. Daughter does note that she seems mildly confused and does note that she has mild baseline dementia. Discharge Exam Constitutional WD/WN, vitals as above Eyes PERRL, conjunctivae normal, anicteric sclerae ENMT external ear and nose normal, oropharynx normal Neck trachea midline, no thyromegaly Respiratory normal respiratory effort, lungs clear to auscultation Cardiovascular RRR, no murmur, no edema Gastrointestinal (Abdomen) normal bowel sounds, soft, nontender, no hepatosplenomegaly Musculoskeletal no cyanosis or clubbing, extremities motor strength 5/5 Skin no rashes, warm and dry Neurologic PERRL, EOMI, accommodation nl, no face palsy, no dysarthria Psychiatric Orientation: alert, oriented to person and oriented to place Lymphatic no cervical or axillary lymphadenopathy Discharge Plan Discharge Items Patient Disposition: Home - Self-Care Reason For Visit: INTRACTABLE HEADACHE Discharge Diagnosis: intractable headache Condition on Discharge: Fair Activity: Resume your previous activity Non-emergency contact: Primary Care Provider Call non-emergency contact if: you have any medication questions Follow-up/Referrals: Enriqueta Harry MD [Primary Care Provider] - Diet: Carb Consistent or DM2 and Low Sodium (2gm) Addtl Attending Provider Instructions: Hold Elqiuis up to Monday. Recommend followup with PCP in 1-2 weeks Recommend 24/7 care at home while your confusion slowly improves. Tips for Families to handle delirium: Communicate clearly and concisely with your loved one Dont say too much or bring up complicated issues; you can repeat verbal reminders about what day it is, or the time and location, if it seems to make your loved one feel more secure. However, be careful not to overdo this as it can cause frustration or agitation sometimes. Your loved one may not recognize you If this is the case, do not take it personally, this is a common occurrence and an accepted part of the condition. Introduce yourself each time if necessary. Your loved one may say and do things that are completely out of character. Remind yourself that this is due to the delirium and that this will recover when the delirium improves or resolves. Keep instructions simple If you try to help your loved one with some basic needs (getting to the chair or bathroom, helping them eat or dress), try to keep instructions simple (this is called a one-step command). If your loved ones cant do what needs to be done, do not argue or try to reason. Simply try again later. Use TV or radio for relaxation You can use TV or radio for relaxation and to help maintain contact with outside world but be careful because in some cases TV and radio (external stimulation) may cause anxiety and agitation. Do not directly dispute delusions Remind yourself that hallucinations and delusions are related to the delirium. Do not directly dispute hallucinations and delusions expressed by your loved ones. Instead, provide reassurance. Change the subject or environment If your loved one is fixated or stuck on a topic or issue that is causing them anxiety or agitation, sometimes changing the subject or the environment (getting them out of the bed or room) works better than trying to resolve the issue. Pending Studies at Discharge: No Stand-Alone Forms: My [facility], Smoking Cessation Medications and DC Order Prescriptions: New acetaminophen 325 mg Tablet 650 mg PO TID 14 Days Qty: 84 0RF diclofenac sodium [Voltaren Arthritis Pain] 1 % Gel 2 g EXT QID 14 Days Qty: 50 0RF Rx Instructions: right backside of the head. Continued metoprolol succinate 50 mg tablet extended release 24 hr 50 mg PO DAILY Qty: 90 3RF lisinopril 40 mg tablet 40 mg PO DAILY Qty: 90 3RF latanoprost 0.005 % drops 1 drp ophthalmic (eye) DAILY mometasone 0.1 % ointment 1 applic topical DAILY PRN (Reason: Skin Irritation) mupirocin 2 % ointment 1 applic topical TID PRN (Reason: Skin Irritation) atorvastatin [Lipitor] 20 mg tablet 20 mg PO DAILY Qty: 30 5RF sertraline 50 mg tablet 50 mg PO DIRECTED Rx Instructions: TAKES 50 MG QAM, THEN 25 MG QHS. melatonin 3 mg Tablet 3 mg PO HS Qty: 30 0RF Held Eliquis 5 mg tablet 5 mg PO BID Hold Instructions: Resume on 06/09/25. Discharge Orders: Discharge Order (Routine); Ordered 06/05/25 Ordered By: Anson Romero/Other Patient Handouts: Hypertension Dc, ED Scalp Contusion Admission Data Admit Date/Time: 06/03/25 13:09 Attending Provider: Anson Denis Admit Provider: Xavier Plaza Primary Care Provider: Enriqueta Harry Other Interventions: Discharge Summary Assessment (RN) Last Done: 06/05/25 17:37 Hospital Stay Data Consultations 06/03/25 12:16 ED Decision to Admit Stat Diagnostic Imagining Performed 06/03/25 08:51 CT head/brain wo con Stat Pending Results Patient Have Any Pending Studies at Discharge: No Discharge Instructions Given to Patient (Per Discharging Provider) Hold Elqiuis up to Monday. Recommend followup with PCP in 1-2 weeks Recommend 24/7 care at home while your confusion slowly improves. Tips for Families to handle delirium: Communicate clearly and concisely with your loved one Dont say too much or bring up complicated issues; you can repeat verbal reminders about what day it is, or the time and location, if it seems to make your loved one feel more secure. However, be careful not to overdo this as it can cause frustration or agitation sometimes. Your loved one may not recognize you If this is the case, do not take it personally, this is a common occurrence and an accepted part of the condition. Introduce yourself each time if necessary. Your loved one may say and do things that are completely out of character. Remind yourself that this is due to the delirium and that this will recover when the delirium improves or resolves. Keep instructions simple If you try to help your loved one with some basic needs (getting to the chair or bathroom, helping them eat or dress), try to keep instructions simple (this is called a one-step command). If your loved ones cant do what needs to be done, do not argue or try to reason. Simply try again later. Use TV or radio for relaxation You can use TV or radio for relaxation and to help maintain contact with outside world but be careful because in some cases TV and radio (external stimulation) may cause anxiety and agitation. Do not directly dispute delusions Remind yourself that hallucinations and delusions are related to the delirium. Do not directly dispute hallucinations and delusions expressed by your loved ones. Instead, provide reassurance. Change the subject or environment If your loved one is fixated or stuck on a topic or issue that is causing them anxiety or agitation, sometimes changing the subject or the environment (getting them out of the bed or room) works better than trying to resolve the issue. Total Time Total Time Spent Total Time Spent (In Minutes): 32 Coding Level of Care Code 12978 INP/OBS DISCH >30 MIN Diagnoses Headache R51.9 Acute metabolic encephalopathy G93.41 Primary hypertension I10 Hypertension type: primary hypertension Diabetes mellitus E11.9 Mixed hyperlipidemia E78.2 Hyperlipidemia type: mixed hyperlipidemia Atrial fibrillation I48.91 Atrial fibrillation type: unspecified
[2025-06-05 17:39] VITALS: BP 169/84; PULSE 74
== END 2025-06-05 19:18 | disposition home or self-care (01) | DRG 102 ==
LOC: ED 08:33 → INTOOBSV 13:09 → EDINP 13:09 → SUATTDRO 13:09 → 2N 16:12
DX: F03.A0 Unspecified dementia, mild, without behavioral disturbance, psychotic disturbance, mood disturbance, and anxiety; W22.8XXA Striking against or struck by other objects, initial encounter; E78.5 Hyperlipidemia, unspecified; G44.301 Post-traumatic headache, unspecified, intractable; F05 Delirium due to known physiological condition; Z87.891 Personal history of nicotine dependence; Z79.01 Long term (current) use of anticoagulants; I48.91 Unspecified atrial fibrillation; I10 Essential (primary) hypertension; Z88.2 Allergy status to sulfonamides; I16.1 Hypertensive emergency; Z79.899 Other long term (current) drug therapy; G44.201 Tension-type headache, unspecified, intractable; Z88.6 Allergy status to analgesic agent; Z91.138 Patient's unintentional underdosing of medication regimen for other reason; S00.03XA Contusion of scalp, initial encounter; E11.9 Type 2 diabetes mellitus without complications; S01.81XD Laceration without foreign body of other part of head, subsequent encounter; T46.5X6A Underdosing of other antihypertensive drugs, initial encounter; Z88.1 Allergy status to other antibiotic agents; G93.41 Metabolic encephalopathy; G43.919 Migraine, unspecified, intractable, without status migrainosus